=== PATIENT | female | born 1990 | race American Indian/Alaskan Native ===

== ENCOUNTER 2016-11-27 10:03 | Inpatient (IN) | payer OTHER ==
[2016-11-27 11:33] LABS: Urine Drugs of Abuse Note Disclamer
[2016-11-27 11:45] LABS: Bacteria,Urine 1+ /HPF (Negative); Bilirubin,Urine NEG (Negative); Blood,Urine SM (Negative); Ketones,Urine NEG (Negative); Leukocyte Esterase,Urine NEG (Negative); Mucus,Urine FEW /HPF; Nitrite,Urine NEG (Negative); Urobilinogen,Urine < 2.0 mg/dL (<2.0)
[2016-11-27 11:46] LABS: Protein,Urine >500 mg/dL (Negative)
[2016-11-27] MEDS ORDERED: XYLOCAINE 2% INFILTRATI ONE ×2 (14:23→22:08)
[2016-11-27] MEDS ORDERED: BRETHINE SUB-Q PRN (14:23)
[2016-11-27] MEDS ORDERED: ePHEDrine SULFATE IV PRN (14:23)
[2016-11-27] MEDS ORDERED: NARCAN 0.4 MG/1 ML IV PRN (14:23)
[2016-11-27] MEDS ORDERED: SUBLIMAZE IV PRN (14:23)
[2016-11-27] MEDS ORDERED: BRETHINE IVP PRN (14:23)
[2016-11-27] MEDS ORDERED: MINERAL OIL PO PRN (14:23)
--- NOTE | 2016-11-27 14:37 | Ultrasound Report ---
BIOPHYSICAL PROFILE: INDICATION: well being, increased blood pressure. COMPARISON: None similar. TECHNIQUE: Transabdominal ultrasound with Doppler interrogation. 2 - breathing movements 2 - movements 2 - posture and tone 2 - Qualitative amniotic fluid volume 8 - TOTAL SCORE OF POSSIBLE 8 Heart Rate (bpm) 132
--- NOTE | 2016-11-27 14:47 | Ultrasound Report ---
ULTRASOUND ABDOMEN LIMITED INDICATION: Increased blood pressure. Evaluate gallbladder. COMPARISON: None similar. FINDINGS: Right upper quadrant ultrasound suggests unremarkable liver. Gallbladder though suboptimally distended with exaggerated wall thickness of 4.7 mm. Few small non-shadowing echogenicities along the gallbladder lumen may be present, possibly debris or polyps. No pericholecystic fluid or positive sonographic Natarajan's sign. Common bile duct is 3 mm. Pancreas partly obscured due to bowel gas, though imaged body appears within normal limits. Nonaneurysmal abdominal aorta. Unremarkable IVC. Bilateral perinephric fluid noted, right more than left. Small amount of perihepatic ascites may also be present. Bilateral pleural effusions also seen. Kidneys appear mildly echogenic. No significant hydronephrosis, though dilated right renal pelvis may represent an extrarenal pelvis. Right kidney is 12.2 x 5 x 6 cm with cortical thickness of 1.4 cm. Left kidney approximately 12.1 cm in length. CONCLUSION: 1. Suboptimally distended gallbladder with exaggerated wall thickness and few non-shadowing gallbladder luminal echogenicities along the wall, as described. 2. Bilateral pleural effusions, minimal ascites and bilateral perinephric fluid also noted in this patient with presumed right extrarenal pelvis and possible underlying medical renal disease sonographically, as described. Please correlate. Thank you for the opportunity to participate in this patient's care.
--- NOTE | 2016-11-27 14:54 | Ultrasound Report ---
OB ULTRASOUND GREATER THAN 14 WEEKS INDICATION: well-being, increased blood pressure. COMPARISON: None similar. TECHNIQUE: Transabdominal grayscale ultrasound with Doppler interrogation. Gestation: Guevara Position: Cephalic Amniotic Fluid: WNL (7-24 cm) MAILE = 18 cm Placenta: Right lateral; couple of placental lakes incidentally noted. Placental Grade: I Heart Rate: 137 BPM Cervical length: 3.3 cm (Normal > 3 cm) NEUROANATOMY VISUALIZED: Choroid Plexus Lateral Ventricle ANATOMY VISUALIZED: Stomach Kidneys Bladder Diaphragm 4 Chamber Heart Heart 3 Vessel Cord SPINE VISUALIZED: Longitudinal Transverse The following are not demonstrated due to maternal body habitus or lie: Cisterna Magnum, Cerebellum, Abd. Cord Insert BPD: 9.2 cm = 37 w 2 d HC: 33 cm = 37 w 4 d AC: 31.9 cm = 35 w 6 d FL: 6.7 cm = 34 w 3 d HC/AC Ratio: 1.03 Cephalic Index: 83.2 Estimated Weight: 2766 grams or 6 lbs. 2 oz. Clinical age = 37 w 2 d EDC: 12/16/2016 US Gest. Age = 36 w 2 d EDC: 12/23/2016 CONCLUSION: Single, viable intrauterine gestation with ultrasound estimated age of 36 weeks and 2 days and EDC of 12/23/2016, currently in cephalic lie with details, as above. Thank you for the opportunity to participate in this patient's care.
[2016-11-27] MEDS ORDERED: PITOCin/NS 20 UNIT/1000ML DRIP 20 UNITS/1,000 ML BAG IV SCH (15:00)
--- NOTE | 2016-11-27 15:27 | Consultation ---
History of Present Illness Reason for consult: gestational hypertension (Pt is 26 yo 37.2 weeks with reported WAN 12/16/16 . Obtained PNC at CT with last appt at 34 weeks . Patient present to [facility] since she has not received PNC ~ 3 weeks . BP 150-160s/ 90-100 mm Hg Spot Protein was > 500 mg Patient admits to N/V/D for 3 weeks ( unknown reason) . In addition patient reports edema LLE Patient denies visual changes , epigsatric pain , VB, CTX, and ABD pain . Reports AFM) Past History - Obstetrical History : 3 Medications and Allergies Allergies Allergy/AdvReac Type Severity Reaction Status Date / Time No Known Allergies Allergy Unverified 11/27/16 10:34 Active Meds: Active Medications Butorphanol Tartrate (Stadol) 2 mg IV Q2H PRN PRN Reason: Pain , Severe (7-10) Fentanyl (Sublimaze) 100 mcg IV Q2H PRN PRN Reason: Labor Pain Hydralazine HCl (Apresoline) 5 mg IV Q30MIN PRN PRN Reason: Hypertension Lactated Ringer's (Lactated Ringers) 1,000 mls @ 125 mls/hr IV DIRECT RACHAEL Oxytocin/Sodium Chloride (Pitocin/Ns 20 Unit/1000ml Drip) 20 units in 1,000 mls @ 125 mls/hr IV DIRECT RACHAEL Mineral Oil (Mineral Oil) 30 ml PO QHS PRN PRN Reason: Constipation Naloxone HCl (Narcan 0.4 Mg/1 Ml) 0.1 mg IV Q2MIN PRN PRN Reason: Res Rate </= 8 or 02 SAT < 92% Review of Systems Constitutional: no fever Eyes: no photophobia, no other (scotoma) Ears, nose, mouth and throat: no headache Cardiovascular: edema, no chest pain, no rapid/irregular heart beat, no syncope , no lightheadedness, no shortness of breath, no high blood pressure (No prior history of CHTN ) Respiratory: no shortness of breath Breasts: deferred Gastrointestinal: no abdominal pain, no nausea, no vomiting, no diarrhea, no indigestion Rectal Exam: deferred Musculoskeletal: no shooting arm pain Integumentary: no rash Neurological: no numbness, no seizures, no headaches Endocrine: no polyuria Hematologic/Lymphatic: no easy bruising, no easy bleeding - Vital Signs Vital signs: Vital Signs Pulse BP 71 140/94 11/27/16 10:36 11/27/16 10:36 Temp Pulse Resp BP Pulse Ox 99.1 F 68 18 153/105 97 11/27/16 13:16 11/27/16 12:35 11/27/16 13:16 11/27/16 12:35 11/27/16 12:32 - Physical Exam Breasts: Positive: deferred Cardiovascular: Regular rate Lungs: Positive: Normal air movement Abdomen: Negative: tenderness, guarding, other (Negative epigastric pain ) Uterus: Positive: other (gravid). Negative: tender Extremities: Positive: edema (trace LLE) Deep Tendon Reflex Grade: Normal +2 - Obstetrical FHR: auscultation normal (+FHT reported per RN) Results Abnormal lab results 11/27/16 Range/Units 10:40 Ur Specific [place] 1.031 H (1.003-1.030) Urine WBC (Auto) 30.0 H (0.0-6.0) /HPF All other labs normal. Ultrasound: report reviewed ([facility] 11/27/16 37.2 weeks with WAN 12/16/16 AUA 36.2 weeks with WAN 12/23/16 EFW 2766 grams ( 6'2") vtx presentation MAILE 18 cm + FHT Placental with placental lakes BPP 09/22) Assessment and Plan A) 1. 37.2 weeks 2. Elevated BP 150-160/90-100's mm Hg concern for PreEclampsia 3. Denies CHTN 4 NO [employer] 5. Spot Protein > 500 6. NO PNC in [place] /NO PNR available 7. Reassuring growth [facility] assessment 8. Reassuring BPP of 09/22 P) 1. Admit to L+D with MgSO4 per protocal - recommendation to deliver 2. Management of BP 3. Document PIH labs 4. UDS screen 5. Strict I&O 6. Placenta to pathology 7. Cord gas
[2016-11-27] MEDS ORDERED: MAGNESIUM SULFATE 4GM/100ML 4 GM/100 ML BAG IV ONE (15:30)
--- NOTE | 2016-11-27 15:44 | History and Physical Report ---
History of Present Illness Date of examination: 11/27/16 Date of admission: 11/27/16 10:04 Chief complaint: nausea, vomiting and diarrhea and upper right quadrant pain. History of present illness: This is a 26 yo at 37 weeks with partial care. Was last seen 4 weeks ago in [facility]. She rports no hx of HTN nor any medical problems in this . She comes to triage c/o nausea and vomintg and diarrhea for the last 3 weeks. She reports good fm no vb no leaking. She also denies tomas, bv, nor scotomata. She states that she associate with her nausea and vomiting right upper quadrant pain and some back pain. Past History Past Medical History: no pertinent history Past Surgical History: no surgical history Family/Genetic History: none Social history: no significant social history, , lives with family ( recently moved to [place] to have help with her baby. livving with mother ), alcohol abuse, prescription drug abuse. denies: smoking - Obstetrical History Expected Date of Delivery: 12/16/16 Actual Gestation: 37 Week(s) 3 Day(s) : 3 Para: 0 Hx # Term Pregnancies: 0 Number of Pregnancies: 0 Spontaneous Abortions: 0 Induced : 2 Number of Living Children: 0 Medications and Allergies Allergies Allergy/AdvReac Type Severity Reaction Status Date / Time No Known Allergies Allergy Unverified 11/27/16 10:34 Home Medications Medication Instructions Recorded Confirmed Last Taken Type Vit-Fe Fumar-FA [ 1 tab PO QDAY 11/27/16 11/27/16 11/27/16 History Vitamin] Active Meds: Active Medications Butorphanol Tartrate (Stadol) 2 mg IV Q2H PRN PRN Reason: Pain , Severe (7-10) Fentanyl (Sublimaze) 100 mcg IV Q2H PRN PRN Reason: Labor Pain Hydralazine HCl (Apresoline) 5 mg IV Q30MIN PRN PRN Reason: Hypertension Lactated Ringer's (Lactated Ringers) 1,000 mls @ 125 mls/hr IV DIRECT RACHAEL Oxytocin/Sodium Chloride (Pitocin/Ns 20 Unit/1000ml Drip) 20 units in 1,000 mls @ 125 mls/hr IV DIRECT RACHAEL Magnesium Sulfate (Magnesium Sulfate 40gm/1000ml) 40 gm in 1,000 mls @ 50 mls/ hr IV DIRECT RACHAEL PRN Reason: 2 GM/HR Magnesium Sulfate (Magnesium Sulfate 4gm/100ml) 4 gm in 100 mls @ 25 mls/hr IV ONCE ONE Stop: 11/27/16 19:19 Mineral Oil (Mineral Oil) 30 ml PO QHS PRN PRN Reason: Constipation Naloxone HCl (Narcan 0.4 Mg/1 Ml) 0.1 mg IV Q2MIN PRN PRN Reason: Res Rate </= 8 or 02 SAT < 92% Review of Systems All systems: negative Gastrointestinal: abdominal pain, nausea, vomiting, diarrhea - Vital Signs Vital signs: Vital Signs Pulse BP 71 140/94 11/27/16 10:36 11/27/16 10:36 Temp Pulse Resp BP Pulse Ox 99.1 F 68 18 153/105 97 11/27/16 13:16 11/27/16 12:35 11/27/16 13:16 11/27/16 12:35 11/27/16 12:32 - Physical Exam Breasts: Positive: normal Cardiovascular: Regular rate, Normal S1 Lungs: Positive: Clear to auscultation, Normal air movement Abdomen: Positive: normal appearance, soft, normal bowel sounds. Negative: distention, tenderness, guarding Genitourinary (Female): Positive: normal external genitalia, normal perenium Vulva: both: normal Uterus: Positive: normal size Anus/Rectum: Positive: normal perianal skin Extremities: Positive: edema (trace) Deep Tendon Reflex Grade: Normal +2 - Obstetrical FHR: category 1 Uterine Contraction Monitor Mode: External Cervical Dilatation: 2 Cervical Effacement Percentage: 60 station: -2 Uterine Contraction Pattern: Irregular Uterine Tone Measurement Phase: Contraction Uterine Contraction Intensity: Mild Results Result Diagrams: 11/27/16 14:55 11/27/16 14:55 Abnormal lab results 11/27/16 Range/Units 10:40 Ur Specific [place] 1.031 H (1.003-1.030) Urine WBC (Auto) 30.0 H (0.0-6.0) /HPF All other labs normal. Ultrasound: report reviewed Assessment and Plan A/P IUP 37 weeks vertex Severe Preeclampsia elevated BP 170-140/70-105 Magnesium 4g and 2g IVF and labs , PIH labs consulted with TALIB Murphy ( discussed agrrement with admission and IOL) elevated transaminase, nl plt consult with medicine concerning bilateral pleural effusion, gallbladder thickening and ascites with perinephric
[2016-11-27 15:47] LABS: Hematocrit 40.1 % (30.3-42.9); Hemoglobin 13.2 gm/dl (10.1-14.3); Mean Corpuscular HGB Conc 33 % (30-34); Mean Corpuscular Hemoglobin 27 pg (28-32); Mean Corpuscular Volume 83 fl (79-97); Platelet Count 205 K/mm3 (140-440); Red Blood Count 4.86 M/mm3 (3.65-5.03); Red Cell Distribution Width 14.3 % (13.2-15.2); White Blood Count 5.8 K/mm3 (4.5-11.0)
[2016-11-27 15:55] LABS: Alanine Aminotransferase 57 units/L (7-56); Lactate Dehydrogenase 353 units/L (91-180); Uric Acid 6.4 mg/dL (3.5-7.6)
[2016-11-27] MEDS: APRESOLINE IV PRN ×2 (16:12→17:05)
[2016-11-27] MEDS: MAGNESIUM SULFATE 40GM/1000ML 40 GM/1,000 ML BAG IV SCH (17:17)
[2016-11-27] MEDS ORDERED: PITOCin/NS 30 UNIT/500ML 30 UNITS/500 ML BAG IV SCH (20:00)
[2016-11-27] MEDS ORDERED: ZOFRAN IV ONE (20:06)
[2016-11-27] MEDS: LACTATED RINGERS 1,000 ML IV SCH (22:00)
[2016-11-28] MEDS: ZOFRAN IV PRN (00:38)
[2016-11-28] MEDS ORDERED: POLYCILLIN/NS 2 GM/100 ML 2 GM/100 ML BAG IV ONE (02:35)
[2016-11-28] MEDS: REGLAN IV PRN ×2 (02:44→07:53)
[2016-11-28] MEDS: TYLENOL PO PRN (02:48)
[2016-11-28] MEDS: STADOL IV PRN ×2 (03:53→06:00)
[2016-11-28] MEDS ORDERED: POLYCILLIN/NS 1 GM/50 ML 1 GM/50 ML BAG IV SCH (06:00)
[2016-11-28] MEDS: LACTATED RINGERS 1,000 ML IV SCH ×2 (06:18→16:13)
[2016-11-28] MEDS ORDERED: ePHEDrine SULFATE ONE (06:40)
[2016-11-28] MEDS ORDERED: NARCAN 2 MG/2 ML IV PRN (07:10)
[2016-11-28] MEDS ORDERED: ePHEDrine SULFATE IV PRN (07:10)
--- NOTE | 2016-11-28 07:11 | Anesthesia Consultation ---
Anesthesia Consult and Med Hx Date of service: 11/28/16 - Airway Anesthetic Teeth Evaluation: Good ROM Head & Neck: Adequate Mental/Hyoid Distance: Adequate Mallampati Class: Class II Intubation Access Assessment: Probably Good - Pulmonary Exam CTA: Yes - Cardiac Exam Cardiac Exam: RRR - Pre-Operative Health Status ASA Pre-Surgery Classification: ASA3 Proposed Anesthetic Plan: Epidural, Spinal - Pulmonary Hx Asthma: No COPD: No Hx Pneumonia: No - Cardiovascular System Hx Hypertension: Yes (PRE-ECLAMPSIA) - Central Nervous System Hx Seizures: No Hx Psychiatric Problems: No - Endocrine Hx Renal Disease: No Hx End Stage Renal Disease: No Hx Hypothyroidism: No Hx Hyperthyroidism: No - Hematic Hx Anemia: No Hx Sickle Cell Disease: Yes (+SC trait) - Other Systems Hx Alcohol Use: No - Additional Comments Anesthesia Medical History Comments: IUP
[2016-11-28] MEDS ORDERED: NACL 0.9% 1000 ML 1,000 ML ONE (07:21)
--- NOTE | 2016-11-28 07:40 | Anesthesia Day of Surgery ---
Anesthesia Day of Surgery - Day of Surgery Patient Examined: Yes Patient H&P Reviewed: Yes Patient is NPO: Yes
[2016-11-28] MEDS ORDERED: PEPCID IV ONE (07:45)
[2016-11-28] MEDS ORDERED: BICITRA ONE (07:45)
[2016-11-28] MEDS ORDERED: ANCEF/STERILE WATER 2 GM/20 ML 2 GM/20 ML SYRINGE IV ONE (07:46)
--- NOTE | 2016-11-28 07:57 | Event Note ---
Date: 11/28/16 I was called by nurse stating variable decels. I placed a IUPC with amnionic fluid infusion but despite resucitation of ivf, pitocin off, oxygen still has deep variable decles and min variability. It was decided that we proceed with primary c/sec secondary NRFHT. She was consented verbally and signed consents. Patient agrees with plan including mother at bedside
[2016-11-28] MEDS ORDERED: fentaNYL-BUPIV 2 MCG/ML-0.125% 200 MCG/100 ML BAG EPIDURAL SCH (08:00)
[2016-11-28] MEDS ORDERED: NACL 0.9% IR ONE (09:05)
[2016-11-28] MEDS ORDERED: WATER FOR IRRIG STERILE IR ONE (09:10)
[2016-11-28] MEDS ORDERED: ANUCORT-HC PR PRN (10:14)
[2016-11-28] MEDS ORDERED: LANSINOH TP PRN (10:14)
[2016-11-28] MEDS ORDERED: SENOKOT PO PRN (10:14)
[2016-11-28] MEDS ORDERED: NARCAN 0.4 MG/1 ML IV PRN ×2 (10:14)
[2016-11-28] MEDS ORDERED: PERCOCET 5/325 PO PRN (10:14)
[2016-11-28] MEDS ORDERED: PHENERGAN PR PRN (10:14)
[2016-11-28] MEDS ORDERED: MOTRIN PO PRN (10:14)
[2016-11-28] MEDS ORDERED: TUCKS PAD TP PRN (10:14)
--- NOTE | 2016-11-28 10:22 | Procedure Note ---
OB Delivery Note - Delivery Date of Delivery: 11/28/16 Surgeon: NORA LEBLANC Estimated blood loss: other (700 cc) - Section Preop diagnosis: nonreassuring FHR tracing Postop diagnosis: same section procedure: section, primary low transverse Disposition: PACU Complications: none Narrative: see op note - A at 1 minute: 6 at 5 minutes: 9 Infant Gender: Female
[2016-11-28] MEDS ORDERED: MORPHINE ONE (10:31)
[2016-11-28] MEDS ORDERED: DILAUDID ONE ×2 (10:31→14:37)
[2016-11-28] MEDS ORDERED: NACL 0.9% 1000 ML ONE (10:31)
[2016-11-28] MEDS ORDERED: XYLOCAINE MPF 2% ONE (10:31)
[2016-11-28] MEDS ORDERED: VERSED ONE (10:31)
--- NOTE | 2016-11-28 10:32 | Operative Report ---
Operative Report Operative Report: DATE OF OPERATION: 11/28/2016 PREOPERATIVE DIAGNOSES: 1. Intrauterine gestation at 37 weeks 2. Severe Preeclampsia 3. NRFHT POSTOPERATIVE DIAGNOSES: 1-3. CLAUDIA OPERATION PERFORMED: Primary low transverse section. SURGEON:Suzette Iglesias MD ANESTHESIA: Epidural COMPLICATIONS: None. ESTIMATED BLOOD LOSS: 700 mL. DRAINS: Young catheter to the bladder. SPECIMENS TO PATHOLOGY: Cord blood for routine testing. OPERATIVE FINDINGS: A viable female with Apgars of 6 and 9 and birthweight of 5 pounds 2 ounces was delivered from a cephalic presentation, persistent occiput anterior position. There was marked caput and molding present on the head. The cord contained 3 vessels. There was normal anterior fundal placenta. The amniotic fluid was clear. The uterus, fallopian tubes and ovaries were normal. DESCRIPTION OF OPERATION: The patient was brought to the operating suite in stable condition with epidural anesthesia on board and an indwelling catheter in place in the bladder. The patient was placed supine on the operating room table and rolled to her left side with a wedge. The abdomen was prepped and draped in standard fashion for section. After testing with forceps to assure an adequate anesthetic level, the surgery was commenced. We had counseled the patient extensively regarding the risks of the surgery including but not limited to stroke, embolus, phlebitis, pain, infection, hemorrhage, as well as injury to the and the internal organs such as the bowel, bladder, blood vessels, nerves, kidneys, ureters and pelvic organs. The patient was aware of the postoperative morbidity issues and recovery timeframes. The patient was aware she can form adhesions, which can result in obstruction of loop of bowel or ureter or chronic pain. She was aware that should she have hemorrhage and require blood transfusion, there was a small chance for exposure to hepatitis or HIV disease. With the scalpel, a Pfannenstiel skin incision was made. Dissection was carried down sharply through the subcutaneous tissues and fascia in a transverse plane with the scalpel, electrocautery and curved Mitchell scissors. The fascia was sharply freed up superiorly and inferiorly from the underlying rectus muscles, which were bluntly and sharply divided. The peritoneum was entered carefully in a clear space with a curved hemostat. The peritoneal incision was then extended vertically with Metzenbaum scissors. A retractor and bladder blade were placed. A bladder flap was created by incising transversely through the peritoneum and vesicouterine fold and then bluntly dissecting the bladder distally. With the scalpel, a low transverse hysterotomy was commenced. The serosa and myometrium were scored with the scalpel. The uterine cavity was actually entered bluntly with a curved hemostat. The uterine incision was then extended laterally with the wind up operator's fingers. An intrauterine hand was placed and the head of the was brought up out of the pelvis into the uterine incision.It was difficult to deliver baby cephaic. It was then abandoned and the incision was T' d and delivered argenis breech . . The nasopharynx and oropharynx were suctioned. The cord was doubly clamped and transected. The infant was then handed off to the nursery personnel. Apgars were 6 and and 9. A cord pH was obtained. . Further cord blood was collected for routine testing. Intravenous Pitocin and antibiotics were administered. The placenta was manually removed. The uterine cavity was then curetted with a dry sponge and freed of the remaining membranes. The edges of the uterine incision were grasped with Sandra clamps. With the massage and the Pitocin, the uterus began to firm up normally. The uterine incision was then closed in 2 layers of 0 Vicryl sutures. The first suture was placed to the endometrium and myometrium. The second suture was placed through the endopelvic fascia and also reincorporated the bladder flap peritoneum. Peritoneal lavage was then performed. The pelvis and gutters were irrigated and suctioned and cleared of all blood and clots and amniotic fluid. The uterine incision was reinspected to assure hemostasis. The uterus, tubes and ovaries were inspected and were normal. Once we were satisfied with the hemostasis which included Tissel and surgicell, attention was turned to closure of the abdominal incision. The peritoneum, muscles and fascia were closed in layers using 0-Vicryl sutures. The subcutaneous tissue was closed with 3-0 plain sutures. The skin was closed with a subcuticular suture of 4-0 Vicryl followed by benzoin, Steri-Strips and a Telfa dressing. The patient was moved to the recovery room in stable condition with the Young catheter draining clear urine. Instruments, sponge and needle counts were reported as correct. Estimated blood loss was 700 mL. There were no complications.
[2016-11-28] MEDS ORDERED: SODIUM CHLORIDE FLUSH SYRINGE 10 ML IV NR (11:00)
[2016-11-28] MEDS ORDERED: TORADOL IV ONE (11:00)
[2016-11-28] MEDS ORDERED: PITOCin/NS 20 UNIT/1000ML DRIP 20 UNITS/1,000 ML BAG IV SCH (11:00)
--- NOTE | 2016-11-28 11:30 | Post Anesthesia Evaluation ---
- Post Anesthesia Evaluation Patient Participated: Yes Airway Patent: Yes Stable Respiratory Function: Yes Nausea/Vomiting: No Temp > 96.8F: Yes Pain Manageable: Yes Adequeate Hydration: Yes Anesthesia Complications: No Block Receding Appropriately: Yes Patient on Ventilator: No
[2016-11-28 19:06] LABS: Hematocrit 22.7 % (30.3-42.9); Hemoglobin 7.2 gm/dl (10.1-14.3)
[2016-11-28 19:19] LABS: INR 1.15 (0.87-1.13); Partial Thromboplastin Time 27.2 Sec. (24.2-36.6)
[2016-11-28 19:35] LABS: Alanine Aminotransferase 35 units/L (7-56); Albumin 1.7 g/dL (3.9-5); Alkaline Phosphatase 386 units/L (35-129); Anion Gap 18 mmol/L; BUN/Creatinine Ratio 12; Blood Urea Nitrogen 13 mg/dL (7-17); Calcium 6.4 mg/dL (8.4-10.2); Carbon Dioxide 19 mmol/L (22-30); Chloride 106.8 mmol/L (98-107); Glucose 124 mg/dL (65-100); Potassium 4.5 mmol/L (3.6-5.0); Sodium 139 mmol/L (137-145); Total Protein 3.4 g/dL (6.3-8.2)
[2016-11-28 19:40] LABS: White Blood Count 21.7 K/mm3 (4.5-11.0)
[2016-11-28 19:41] LABS: Hematocrit 22.7 % (30.3-42.9); Hemoglobin 7.2 gm/dl (10.1-14.3); Mean Corpuscular HGB Conc 32 % (30-34); Mean Corpuscular Hemoglobin 27 pg (28-32); Mean Corpuscular Volume 84 fl (79-97); Platelet Count 194 K/mm3 (140-440); Red Blood Count 2.69 M/mm3 (3.65-5.03); Red Cell Distribution Width 14.3 % (13.2-15.2)
[2016-11-28] MEDS ORDERED: NACL 0.9% 500 ML 500 ML IV ONE ×2 (19:53→23:34)
--- NOTE | 2016-11-28 20:53 | Cat Scan Report ---
FINAL REPORT EXAM: CT ABDOMEN PELVIS WO/W CON HISTORY: question bleed,, s/p TECHNIQUE: Dynamic helical CT scan through the abdomen and pelvis before, during and after intravenous injection of iodinated contrast. Images are reconstructed in the sagittal and coronal planes. Oral contrast was not given. PRIORS: None. FINDINGS: Images through the lower thorax show medium-sized bilateral pleural effusions and bibasilar compressive atelectasis. Uterus is enlarged consistent with recent state. There is heterogeneous hyperdense material in the lower uterine segment and endocervical canal, expanding the in the cervical canal and measuring 18.0 x 10.7 x 8.2 Cm. It most likely represents a large hematoma. There is fluid in the endometrial canal in the uterine fundus. There are also air bubbles consistent with recent . Subcutaneous soft tissue air consistent with is noted. There is small to moderate abdominal ascites. There is fatty infiltration of the liver, especially centrally and in the posterior right lobe. The gallbladder, pancreas, spleen and adrenal glands appear normal. The kidneys appear normal. There is mild to moderate right and mild left pelviectasis likely due to mass effect on the ureters by the enlarged uterus. The stomach is markedly distended with air and fluid. There are no abnormally dilated loops of bowel or acute inflammatory changes. A normal-appearing appendix is identified. The abdominal aorta has a normal diameter. The IVC has a flattened appearance may be indicative of hypovolemia. There is a small amount of spinal epidural air likely introduced during epidural administration of anesthesia. The bones are unremarkable. IMPRESSION: 1. Large intrauterine hematoma mostly in the lower uterine segment and endocervical canal. 2. Flattening of the IVC may be indicative of hypovolemia. 3. Medium-sized bilateral pleural effusions and bibasilar compressive atelectasis 4. Small to moderate abdominal ascites 5. Fatty infiltration of the liver 6. Bilateral pelviectasis likely due to mass effect on the ureters by the enlarged uterus 7. Marked distention of the stomach with air and fluid. Consider NG tube placement. 8. Small amount of spinal epidural air likely introduced during epidural administration of anesthesia.
--- NOTE | 2016-11-28 21:29 | History and Physical Report ---
History of Present Illness Date of examination: 11/28/16 Date of admission: 11/27/16 10:04 Chief complaint: CC:Feeling Weak since am History of present illness: TU[place]UM[place]:26 y/o AAF being seen for extreme weakness.Slight SOB. Had C Section this AM .No chest pain. Past History Past Medical History: No medical history Past Surgical History: Social history: no significant social history, , lives with family ( recently moved to [place] to have help with her baby. livving with mother ), alcohol abuse, prescription drug abuse. denies: smoking Medications and Allergies Allergies Allergy/AdvReac Type Severity Reaction Status Date / Time No Known Allergies Allergy Unverified 11/27/16 10:34 Home Medications Medication Instructions Recorded Confirmed Last Taken Type Vit-Fe Fumar-FA [ 1 tab PO QDAY 11/27/16 11/27/16 11/27/16 History Vitamin] Active Meds: Active Medications Acetaminophen (Tylenol) 650 mg PO Q6H PRN PRN Reason: Pain, Mild (1-3) Last Admin: 11/28/16 02:48 Dose: 650 mg Acetaminophen/Hydrocodone Bitart ([place] 5/325) 2 each PO Q6H PRN PRN Reason: Pain, Moderate (4-6) Butorphanol Tartrate (Stadol) 2 mg IV Q2H PRN PRN Reason: Pain , Severe (7-10) Last Admin: 11/28/16 06:00 Dose: 2 mg Diphtheria/Tetanus/Acell Pertussis (Boostrix) 0.5 ml IM .ONCE ONE Stop: 11/29/16 06:01 Fentanyl (Sublimaze) 100 mcg IV Q2H PRN PRN Reason: Labor Pain Ferrous Sulfate (Feosol) 325 mg PO QDAY RACHAEL Hydralazine HCl (Apresoline) 5 mg IV Q30MIN PRN PRN Reason: Hypertension Last Admin: 11/27/16 17:05 Dose: 5 mg Hydrocortisone Acetate (Anucort-Hc) 25 mg [place] BID PRN PRN Reason: Hemorrhoids Lactated Ringer's (Lactated Ringers) 1,000 mls @ 125 mls/hr IV DIRECT RACHAEL Last Admin: 11/28/16 16:13 Dose: 125 mls/hr Magnesium Sulfate (Magnesium Sulfate 40gm/1000ml) 40 gm in 1,000 mls @ 25 mls/ hr IV DIRECT RACHAEL PRN Reason: 1 GM/HR Last Infusion: 11/28/16 02:45 Dose: 1 gm/hr, 25 mls/hr Oxytocin/Sodium Chloride (Pitocin/Ns 30 Unit/500ml) 30 units in 500 mls @ 1 mls /hr IV TITR RACHAEL PRN Reason: Protocol Last Titration: 11/28/16 05:31 Dose: 14 mls/hr, 14 mls/hr Ampicillin Sodium (Polycillin/Ns 1 Gm/50 Ml) 1 gm in 50 mls @ 100 mls/hr IV Q4HR RACHAEL PRN Reason: Protocol Last Admin: 11/28/16 06:18 Dose: 100 mls/hr Oxytocin/Sodium Chloride (Pitocin/Ns 20 Unit/1000ml Drip) 20 units in 1,000 mls @ 250 mls/hr IV DIRECT RACHAEL Ibuprofen (Motrin) 800 mg PO Q6H PRN PRN Reason: Pain, Mild (1-3) Magnesium Hydroxide (Milk Of Magnesia) 30 ml PO QHS PRN PRN Reason: Constip Unrelieved By Senna Measles/Mumps/Rubella Vaccine Live (M-M-R Ii Vaccine) 0.5 ml SUB-Q .ONCE ONE Stop: 11/29/16 06:01 Metoclopramide HCl (Reglan) 10 mg IV Q6H PRN PRN Reason: Nausea And Vomiting Last Admin: 11/28/16 07:53 Dose: 10 mg Mineral Oil (Mineral Oil) 30 ml PO QHS PRN PRN Reason: Constipation Morphine Sulfate (Morphine) 2 mg IV Q4H PRN PRN Reason: Pain, Moderate (4-6) Morphine Sulfate (Morphine) 4 mg IV Q4H PRN PRN Reason: Pain , Severe (7-10) Multi-Ingredient Ointment (Lansinoh) 1 applic TP PRN PRN PRN Reason: dryness/cracking Multivitamins/Iron/Calcium ( Vitamin) 1 each PO QDAY RACHAEL Naloxone HCl (Narcan 0.4 Mg/1 Ml) 0.1 mg IV Q2MIN PRN PRN Reason: Res Rate </= 8 or 02 SAT < 92% Ondansetron HCl (Zofran) 4 mg IV Q8H PRN PRN Reason: Nausea And Vomiting Last Admin: 11/28/16 00:38 Dose: 4 mg Oxycodone/Acetaminophen (Percocet 5/325) 1 tab PO Q6H PRN PRN Reason: Pain, Moderate (4-6) Promethazine HCl (Phenergan) 25 mg [place] Q6H PRN PRN Reason: N/V IF NPO AND NO IV ACCESS Senna (Senokot) 17.2 mg PO QHS PRN PRN Reason: Constipation Simethicone (Mylicon) 80 mg PO Q6H PRN PRN Reason: Gas pain Sodium Chloride (Sodium Chloride Flush Syringe 10 Ml) 10 ml IV PRN NR Stop: 11/30/16 10:59 Witch [place]/Glycerin (Tucks Pad) 1 each TP PRN PRN PRN Reason: Hemorrhoids/cleansing/soothing Review of Systems All systems: negative Constitutional: no weight loss, no weight gain, no fever, no chills, no sweats, no night sweats Ears, nose, mouth and throat: no sore throat, no swelling in mouth, no swelling in throat Breasts: deferred Cardiovascular: shortness of breath, no chest pain, no orthopnea, no palpitations, no rapid/irregular heart beat, no edema, no syncope, no lightheadedness Respiratory: no cough, no cough with sputum, no excessive sputum, no hemoptysis , no shortness of breath, no dyspnea on exertion Gastrointestinal: abdominal pain, nausea, no vomiting, no diarrhea, no constipation, no change in bowel habits, no hematemesis, no coffee ground emesis Genitourinary Female: no dysuria, no urinary frequency, no urgency, no stress incontinence Rectal: no pain Musculoskeletal: no neck stiffness, no neck pain, no shooting arm pain, no arm numbness/tingling, no low back pain, no shooting leg pain, no leg numbness/ tingling, no redness of joints Integumentary: no rash, no pruritis, no redness, no sores, no wounds, no jaundice, no boils, no blisters Neurological: no seizures, no syncope Psychiatric: no anxiety, no memory loss, no change in sleep habits, no sleep disturbances, no insomnia, no hypersomnia, no change in appetite, no change in libido, no suicidal ideation, no disorientation, no hallucinations Endocrine: no cold intolerance, no heat intolerance, no polyphagia, no excessive thirst, no polydipsia, no polyuria, no nocturia, no excessive sweating , no flushing, no weight change Hematologic/Lymphatic: no easy bruising, no easy bleeding Allergic/Immunologic: no urticaria, no allergic rhinitis, no wheezing Exam - Constitutional Vitals: Temp Pulse Resp BP Pulse Ox 97.5 F L 99 H 20 81/41 97 11/28/16 19:57 11/28/16 18:45 11/28/16 18:45 11/28/16 18:50 11/28/16 18:50 General appearance: Present: no acute distress, mild distress, well-nourished - EENT Eyes: Present: PERRL ENT: hearing intact, clear oral mucosa - Neck Neck: Present: supple, normal ROM - Respiratory Respiratory effort: normal Respiratory: bilateral: CTA - Cardiovascular Heart Sounds: Present: S1 & S2. Absent: rub, click - Extremities Extremities: pulses symmetrical, No edema Peripheral Pulses: within normal limits - Abdominal General gastrointestinal: Present: soft, tender, non-distended, normal bowel sounds Female genitourinary: Present: normal - Rectal Rectal Exam: deferred - Integumentary Integumentary: Present: clear, warm, dry - Musculoskeletal Musculoskeletal: gait normal, strength equal bilaterally - Psychiatric Psychiatric: appropriate mood/affect, intact judgment & insight - Neurologic Neurologic: CNII-XII intact, moves all extremities - Allied Health Allied health notes reviewed: nursing, case management Results - Labs CBC & Chem 7: 11/29/16 18:41 11/28/16 18:40 Labs: Laboratory Last Values WBC 21.7 K/mm3 (4.5-11.0) H 11/28/16 18:40 RBC 2.69 M/mm3 (3.65-5.03) L 11/28/16 18:40 Hgb 7.2 gm/dl (10.1-14.3) L 11/28/16 18:40 Hct 22.7 % (30.3-42.9) L 11/28/16 18:40 MCV 84 fl (79-97) 11/28/16 18:40 MCH 27 pg (28-32) L 11/28/16 18:40 MCHC 32 % (30-34) 11/28/16 18:40 RDW 14.3 % (13.2-15.2) 11/28/16 18:40 Plt Count 194 K/mm3 (140-440) 11/28/16 18:40 PT 15.3 Sec. (12.2-14.9) H 11/28/16 18:40 INR 1.15 (0.87-1.13) H 11/28/16 18:40 APTT 27.2 Sec. (24.2-36.6) 11/28/16 18:40 VBG pH 7.297 (7.320-7.420) L 11/28/16 08:30 Sodium 139 mmol/L (137-145) 11/28/16 18:40 Potassium 4.5 mmol/L (3.6-5.0) 11/28/16 18:40 Chloride 106.8 mmol/L (98-107) 11/28/16 18:40 Carbon Dioxide 19 mmol/L (22-30) L 11/28/16 18:40 Anion Gap 18 mmol/L 11/28/16 18:40 BUN 13 mg/dL (7-17) 11/28/16 18:40 Creatinine 1.1 mg/dL (0.7-1.2) D 11/28/16 18:40 Estimated GFR > 60 ml/min 11/28/16 18:40 BUN/Creatinine Ratio 12 % 11/28/16 18:40 Glucose 124 mg/dL (65-100) H 11/28/16 18:40 Uric Acid 6.4 mg/dL (3.5-7.6) 11/27/16 14:55 Calcium 6.4 mg/dL (8.4-10.2) L 11/28/16 18:40 Magnesium 6.40 mg/dL (1.7-2.3) H 11/28/16 18:40 Total Bilirubin 0.30 mg/dL (0.1-1.2) 11/28/16 18:40 AST 38 units/L (5-40) 11/28/16 18:40 ALT 35 units/L (7-56) 11/28/16 18:40 Alkaline Phosphatase 386 units/L (35-129) H 11/28/16 18:40 Lactate Dehydrogenase 353 units/L (91-180) H 11/27/16 14:55 Total Protein 3.4 g/dL (6.3-8.2) L 11/28/16 18:40 Albumin 1.7 g/dL (3.9-5) L 11/28/16 18:40 Albumin/Globulin Ratio 1.0 % 11/28/16 18:40 Urine Color Aliza (Yellow) 11/27/16 10:40 Urine Turbidity Clear (Clear) 11/27/16 10:40 Urine pH 5.0 (5.0-7.0) 11/27/16 10:40 Ur Specific [place] 1.031 (1.003-1.030) H 11/27/16 10:40 Urine Protein >500 mg/dL (Negative) 11/27/16 10:40 Urine Glucose (UA) Neg mg/dL (Negative) 11/27/16 10:40 Urine Ketones Neg mg/dL (Negative) 11/27/16 10:40 Urine Blood Sm (Negative) 11/27/16 10:40 Urine Nitrite Neg (Negative) 11/27/16 10:40 Urine Bilirubin Neg (Negative) 11/27/16 10:40 Urine Urobilinogen < 2.0 mg/dL (<2.0) 11/27/16 10:40 Ur Leukocyte Esterase Neg (Negative) 11/27/16 10:40 Urine WBC (Auto) 30.0 /HPF (0.0-6.0) H 11/27/16 10:40 Urine RBC (Auto) 7.0 /HPF (0.0-6.0) 11/27/16 10:40 U Epithel Cells (Auto) 2.0 /HPF (0-13.0) 11/27/16 10:40 Urine Bacteria (Auto) 1+ /HPF (Negative) 11/27/16 10:40 Urine Mucus Few /HPF 11/27/16 10:40 Urine Opiates Screen Presumptive negative 11/27/16 10:40 Urine Methadone Screen Presumptive negative 11/27/16 10:40 Ur Barbiturates Screen Presumptive negative 11/27/16 10:40 Ur Phencyclidine Scrn Presumptive negative 11/27/16 10:40 Ur Amphetamines Screen Presumptive negative 11/27/16 10:40 U Benzodiazepines Scrn Presumptive negative 11/27/16 10:40 Urine Cocaine Screen Presumptive negative 11/27/16 10:40 U Marijuana (THC) Screen Presumptive negative 11/27/16 10:40 Drugs of Abuse Note Disclamer 11/27/16 10:40 RPR Nonreactive (Nonreactive) 11/27/16 14:55 Blood Type AB POSITIVE 11/27/16 15:00 Antibody Screen TNR 11/27/16 15:00 PRAVIN Antibody Screen Negative 11/27/16 15:00 Crossmatch See Detail 11/27/16 15:00 - Imaging and Cardiology Chest x-ray: report reviewed CT scan - abdomen: report reviewed (Uterine Hematoma 18 cm x 10.7x8.2 cm flattening ofIVC indicative of HypovolemiaMedium sized bilateral pleural effusions.Fairly large appearing pericardial effusions.) Assessment and Plan Advance Directives: Yes VTE prophylaxis?: Mechanical Plan of care discussed with patient/family: Yes - Patient Problems (1) Hypovolemia due to hemorrhage Current Visit: Yes Status: Acute Plan to address problem: IV Fluids and PRBC transfusion as necessary. (2) Hypotension Current Visit: Yes Status: Acute Qualifiers: Hypotension type: maternal hypotension of Trimester: T Plan to address problem: Hypotension sec to Blood Loss.IV fluids and PRBC for now (3) Hematoma of uterus Current Visit: Yes Status: Acute Qualifiers: Encounter type: initial encounter Qualified Code(s): S37.62XA - Contusion of uterus, initial encounter Plan to address problem: UFE if necessary. Transfuse Defer to Director Of Rooms reg evacuation (4) Leukocytosis Current Visit: Yes Status: Acute Qualifiers: Leukocytosis type: L Plan to address problem: Reactive Stress induced Empiric abx On Cefazolin IV q 8 h (5) DVT prophylaxis Current Visit: Yes Status: Acute Plan to address problem: scd's
[2016-11-28 22:29] LABS: Hematocrit 22.9 % (30.3-42.9); Hemoglobin 7.3 gm/dl (10.1-14.3)
[2016-11-28] MEDS: D5NS 1,000 ML IV SCH (23:52)
[2016-11-28] MEDS: ceFAZolin 2 GM in NACL 0.9% 100 ML IV SCH (23:53)
[2016-11-28] MEDS: MAGNESIUM SULFATE 40GM/1000ML 40 GM/1,000 ML BAG IV SCH (23:54)
--- NOTE | 2016-11-28 23:55 | Event Note ---
Date: 11/28/16 Late entry I was notified by the nurse at 6p that the patient was pale and hypotensive in 90/60s. I evaluated patient and ordered stat ct scan and CBC , cmp and blood gas. The patient was noted to have a [id number] hematoma in lower uterine segment and endocervial canal. Her hemoglobin preop 11/26 13 and post op 1600 7.2. Due to the patients status i discused with Angus Miller transfer to ICU and it was decided to transfer to ICU. I spoke with anesthesia and Dr. Carbajal from IR for possible UFE and exam under anesthesia with possible D and c. After evaluating status of patient and another cbc which was stable at 7.3 I decided to watch expectantly cbc every 4 hrs. If stable will watch expectantly and at any time if hemodynamically unstable will arrange for UFE and removal of hematoma. I will continue mag for 24 hrs Postop for severe preeclampsia continue ICU stay ancef as wbc elevated 21 close monitor of VSS
[2016-11-29 01:26] LABS: Hematocrit 23.7 % (30.3-42.9); Hemoglobin 7.2 gm/dl (10.1-14.3); Mean Corpuscular HGB Conc 31 % (30-34); Mean Corpuscular Hemoglobin 27 pg (28-32); Mean Corpuscular Volume 88 fl (79-97); Platelet Count 184 K/mm3 (140-440); Red Blood Count 2.71 M/mm3 (3.65-5.03); Red Cell Distribution Width 14.5 % (13.2-15.2)
[2016-11-29 02:18] LABS: Blastocytes % (Manual) 0 %; Eosinophils % (Manual) 0 % (0.0-4.3)
[2016-11-29 02:19] LABS: Burr Cells 1+; Diff Status Complete; Large Platelets Rare; Platelet Estimate Consistent w Auto; Polychromasia Few
[2016-11-29] MEDS ORDERED: BOOSTRIX IM ONE (06:00)
[2016-11-29] MEDS ORDERED: M-M-R II VACCINE SUB-Q ONE (06:00)
[2016-11-29] MEDS: ceFAZolin 2 GM in NACL 0.9% 100 ML IV SCH ×2 (08:08→16:42)
[2016-11-29] MEDS: D5NS 1,000 ML IV SCH ×2 (08:09→21:15)
[2016-11-29] MEDS: NORCO 5/325 PO PRN ×2 (09:38→21:15)
[2016-11-29] MEDS: PRENATAL VITAMIN PO SCH (09:39)
[2016-11-29] MEDS: FEOSOL PO SCH (09:39)
[2016-11-29] MEDS: CITRATE OF MAGNESIA PO PRN (13:40)
[2016-11-29] MEDS: MORPHINE IV PRN (13:40)
[2016-11-29 14:08] LABS: Hematocrit 28.1 % (30.3-42.9); Hemoglobin 9.4 gm/dl (10.1-14.3); Mean Corpuscular HGB Conc 33 % (30-34); Mean Corpuscular Hemoglobin 28 pg (28-32); Mean Corpuscular Volume 83 fl (79-97); Platelet Count 140 K/mm3 (140-440); Red Blood Count 3.37 M/mm3 (3.65-5.03); Red Cell Distribution Width 14.6 % (13.2-15.2)
[2016-11-29 14:09] LABS: White Blood Count 24.7 K/mm3 (4.5-11.0)
--- NOTE | 2016-11-29 15:07 | Progress Note ---
Assessment and Plan A/P POD#1 s/p Primary c/sec severe pree- been on Mag for 24 hrs d/c now hypotension- resolving s/p 2 U PRBC and FFP abd slightly distended- encourage ambulation, mag citrate hematoma- [id number] in lower uterine segment stable . D/w IR Dr. Carbajal and if stable will continue to closely observed if patient becomes unstable will consider UFE with exam under anesthesia and possible d and c. Plan B contains cytotec in few days with possible passing of hematoma. Plan c expectant mgt with reabsorption close monitoring advance diet as tolerate continue ancef ( increase in wbc) but afebrile ( multiple manipulation iwth delivery hand in vagina ) Subjective - Subjective Date of service: 11/29/16 Principal diagnosis: s/p c/sec, severe pree , hypotesnidon , hypovolemic Interval history: This is a 26 yo at 37 weeks with partial care. Was last seen 4 weeks ago in [facility]. She rports no hx of HTN nor any medical problems in this . She comes to triage c/o nausea and vomintg and diarrhea for the last 3 weeks. She reports good fm no vb no leaking. She also denies tomas, bv, nor scotomata. She states that she associate with her nausea and vomiting right upper quadrant pain and some back pain. Patient reports: appetite normal, voiding normally, pain well controlled, ambulating normally : doing well Objective - Vital Signs Latest vital signs: Vital Signs Temp Pulse Resp BP BP Pulse Ox 11/29/16 12:00 98.0 F 90 26 H 137/83 96 11/29/16 11:50 89 25 H 138/91 97 11/29/16 11:40 86 24 134/84 96 11/29/16 11:30 83 20 134/84 98 11/29/16 11:20 85 26 H 142/90 98 11/29/16 11:10 83 26 H 143/92 97 11/29/16 11:00 84 23 143/92 95 11/29/16 10:50 82 19 129/89 98 11/29/16 10:40 87 26 H 138/90 99 11/29/16 10:30 86 21 138/90 97 11/29/16 10:20 83 23 135/88 99 11/29/16 10:10 86 22 134/85 99 11/29/16 10:00 98.1 F 80 23 134/85 99 11/29/16 09:50 83 21 129/79 97 11/29/16 09:40 83 23 124/76 96 11/29/16 09:30 97.9 F 83 24 124/76 97 11/29/16 09:20 81 21 137/81 97 11/29/16 09:10 79 20 130/81 97 11/29/16 09:00 98.2 F 83 21 130/81 96 11/29/16 08:50 84 22 136/83 97 11/29/16 08:40 84 21 130/80 95 11/29/16 08:31 98.1 F 81 26 H 138/79 96 11/29/16 08:30 82 20 138/79 95 11/29/16 08:20 86 14 143/90 96 11/29/16 08:10 98 H 27 H 130/80 95 11/29/16 08:02 98.1 F 85 26 H 130/80 95 11/29/16 08:01 98.1 F 81 24 138/79 96 11/29/16 08:00 81 21 130/80 95 11/29/16 07:50 83 23 138/87 95 11/29/16 07:44 98.1 F 85 26 H 130/80 95 11/29/16 07:40 84 25 H 135/80 99 11/29/16 07:30 97.9 F 78 24 135/80 98 11/29/16 07:20 84 32 H 136/84 99 11/29/16 07:15 97.5 F L 77 22 136/84 11/29/16 07:10 80 30 H 130/82 99 11/29/16 07:00 85 24 130/82 95 11/29/16 06:50 87 17 132/82 99 11/29/16 06:40 89 19 128/78 96 11/29/16 06:30 97.6 F 82 20 128/78 100 11/29/16 06:20 76 23 130/84 99 11/29/16 06:10 90 25 H 122/77 100 11/29/16 06:00 85 25 H 122/77 100 11/29/16 05:50 85 28 H 119/79 98 11/29/16 05:40 82 19 116/69 98 11/29/16 05:30 81 19 116/69 98 11/29/16 05:28 98.3 F 92 H 25 H 132/79 98 11/29/16 05:20 88 18 113/73 93 11/29/16 05:15 98.1 F 86 20 113/73 90 11/29/16 05:10 82 18 125/77 92 11/29/16 05:00 89 20 120/73 99 11/29/16 04:50 93 H 19 108/74 97 11/29/16 04:40 90 20 116/73 100 11/29/16 04:30 90 22 125/77 98 11/29/16 04:26 98 F 90 20 120/73 99 11/29/16 04:20 98 H 16 116/73 99 11/29/16 04:12 98.2 F 85 21 116/73 100 11/29/16 04:10 87 20 112/68 100 11/29/16 04:00 98 H 23 112/68 100 11/29/16 03:55 97.8 F 11/29/16 03:50 98 H 19 108/67 100 11/29/16 03:42 97.8 F 90 24 101/62 100 11/29/16 03:40 91 H 22 101/62 100 11/29/16 03:30 89 20 101/62 100 11/29/16 03:20 92 H 18 104/63 100 11/29/16 03:12 98.2 F 93 H 23 104/63 11/29/16 03:10 93 H 21 95/57 100 11/29/16 03:00 91 H 19 95/57 100 11/29/16 02:50 94 H 19 97/59 100 11/29/16 02:42 98.1 F 96 H 19 97/59 11/29/16 02:40 99 H 23 102/60 100 11/29/16 02:30 95 H 20 98/54 100 11/29/16 02:20 99 H 19 99/59 100 11/29/16 02:12 97.9 F 93 H 21 99/59 11/29/16 02:10 96 H 20 102/60 100 11/29/16 02:00 98 H 20 102/60 100 11/29/16 01:50 101 H 26 H 106/59 100 11/29/16 01:42 97.7 F 96 H 26 H 106/59 11/29/16 01:40 99 H 19 98/58 100 11/29/16 01:30 98 H 19 98/58 100 11/29/16 01:20 97 H 20 97/53 100 11/29/16 01:12 98.2 F 102 H 21 91/50 11/29/16 01:10 106 H 16 91/50 100 11/29/16 01:00 100 H 22 91/50 100 11/29/16 00:57 98.2 F 105 H 23 95/50 11/29/16 00:50 96 H 19 92/57 100 11/29/16 00:40 96 H 21 92/57 100 11/29/16 00:30 99 H 22 92/57 100 11/29/16 00:20 105 H 22 92/57 100 11/29/16 00:10 95 H 18 92/57 100 11/29/16 00:05 97.7 F 11/29/16 00:00 95 H 21 92/57 100 11/28/16 23:50 105 H 25 H 80/47 98 11/28/16 23:40 103 H 23 80/47 100 11/28/16 23:30 102 H 21 80/47 100 11/28/16 23:20 98 H 14 80/47 100 11/28/16 23:10 97 H 21 80/47 98 11/28/16 22:00 99 11/28/16 19:57 97.5 F L 11/28/16 18:50 81/41 97 11/28/16 18:45 99 H 20 89/46 11/28/16 18:30 90/46 11/28/16 18:14 18 90/46 11/28/16 16:20 98.4 F 102 H 18 91/55 Intake and Output 11/28/16 11/29/16 11/29/16 23:59 07:59 15:59 Intake Total 480 1350 515 Output Total 200 250 Balance 280 1100 515 Intake: IV 1100 265 D5ns 1,000 ml @ 125 mls/ 1000 hr IV DIRECT RACHAEL Rx#: [id number] MAGNESIUM SULFATE 40GM/ 265 1000ML 40 gm In 1,000 ml @ 1 GM/HR 25 mls/hr IV DIRECT RACHAEL Rx#:[id number] ceFAZolin 2 GM In NaCl 0. 100 9% 100 ml @ 200 mls/hr IV Q8HR [facility] Rx#:[id number] Oral 480 Blood Product 250 250 Fresh Frozen Plasma 0 Thawed Unit [id number] Leukoreduced Red Blood 250 Cells Unit [id number] Leukoreduced Red Blood 0 250 Cells Unit [id number] Output: Urine 200 250 Indwelling Catheter 200 250 Other: Total, Intake Amount 480 Total, Output Amount 200 250 Voiding Method Indwelling Catheter Indwelling Catheter - Exam Breasts: Present: normal Cardiovascular: Present: Regular rate, Normal S1 Lungs: Present: Clear to auscultation, Normal air movement Abdomen: Present: normal appearance, soft, distention, tenderness, abnormal bowel sounds Vulva: both: normal Uterus: Present: tenderness, fundal height at umbilicus Extremities: Present: normal Deep Tendon Reflex Grade: Normal +2 Incision: Present: dry, dressed - Labs Labs: Abnormal lab results 11/27/16 11/28/16 11/28/16 Range/Units 15:00 18:40 18:40 WBC (4.5-11.0) K/mm3 RBC (3.65-5.03) M/mm3 Hgb 7.2 L D (10.1-14.3) gm/dl Hct 22.7 L D (30.3-42.9) % MCH (28-32) pg Lymphocytes % (Manual) (13.4-35.0) % Seg Neutrophils # Man (1.8-7.7) K/mm3 Lymphocytes # (Manual) (1.2-5.4) K/mm3 PT (12.2-14.9) Sec. INR (0.87-1.13) Carbon Dioxide (22-30) mmol/L Glucose (65-100) mg/dL Calcium (8.4-10.2) mg/dL Magnesium 6.40 H (1.7-2.3) mg/dL Alkaline Phosphatase (35-129) units/L Total Protein (6.3-8.2) g/dL Albumin (3.9-5) g/dL Crossmatch See Detail 11/28/16 11/28/16 11/28/16 Range/Units 18:40 18:40 18:40 WBC 21.7 H (4.5-11.0) K/mm3 RBC 2.69 L (3.65-5.03) M/mm3 Hgb 7.2 L (10.1-14.3) gm/dl Hct 22.7 L (30.3-42.9) % MCH 27 L (28-32) pg Lymphocytes % (Manual) (13.4-35.0) % Seg Neutrophils # Man (1.8-7.7) K/mm3 Lymphocytes # (Manual) (1.2-5.4) K/mm3 PT 15.3 H (12.2-14.9) Sec. INR 1.15 H (0.87-1.13) Carbon Dioxide 19 L (22-30) mmol/L Glucose 124 H (65-100) mg/dL Calcium 6.4 L (8.4-10.2) mg/dL Magnesium (1.7-2.3) mg/dL Alkaline Phosphatase 386 H (35-129) units/L Total Protein 3.4 L (6.3-8.2) g/dL Albumin 1.7 L (3.9-5) g/dL Crossmatch 11/28/16 11/29/16 11/29/16 Range/Units 22:05 01:04 01:04 WBC 28.0 H (4.5-11.0) K/mm3 RBC 2.71 L (3.65-5.03) M/mm3 Hgb 7.3 L 7.2 L (10.1-14.3) gm/dl Hct 22.9 L 23.7 L (30.3-42.9) % MCH 27 L (28-32) pg Lymphocytes % (Manual) 1.0 L (13.4-35.0) % Seg Neutrophils # Man 26.3 H (1.8-7.7) K/mm3 Lymphocytes # (Manual) 0.3 L (1.2-5.4) K/mm3 PT (12.2-14.9) Sec. INR (0.87-1.13) Carbon Dioxide (22-30) mmol/L Glucose (65-100) mg/dL Calcium (8.4-10.2) mg/dL Magnesium 6.60 H (1.7-2.3) mg/dL Alkaline Phosphatase (35-129) units/L Total Protein (6.3-8.2) g/dL Albumin (3.9-5) g/dL Crossmatch 11/29/16 Range/Units 12:53 WBC 24.7 H (4.5-11.0) K/mm3 RBC 3.37 L (3.65-5.03) M/mm3 Hgb 9.4 L (10.1-14.3) gm/dl Hct 28.1 L (30.3-42.9) % MCH (28-32) pg Lymphocytes % (Manual) (13.4-35.0) % Seg Neutrophils # Man (1.8-7.7) K/mm3 Lymphocytes # (Manual) (1.2-5.4) K/mm3 PT (12.2-14.9) Sec. INR (0.87-1.13) Carbon Dioxide (22-30) mmol/L Glucose (65-100) mg/dL Calcium (8.4-10.2) mg/dL Magnesium (1.7-2.3) mg/dL Alkaline Phosphatase (35-129) units/L Total Protein (6.3-8.2) g/dL Albumin (3.9-5) g/dL Crossmatch
[2016-11-29 15:18] LABS: Basophils % (Manual) 0 % (0.0-1.8); Blastocytes % (Manual) 0 %; Eosinophils % (Manual) 0 % (0.0-4.3)
[2016-11-29 15:19] LABS: Giant Platelets Rare; Platelet Estimate Consistent w Auto
[2016-11-29 15:20] LABS: Diff Status Complete; Microcytosis Few; Poikilocytosis Few
[2016-11-29 19:28] LABS: Hematocrit 27.3 % (30.3-42.9); Mean Corpuscular HGB Conc 33 % (30-34); Mean Corpuscular Hemoglobin 28 pg (28-32); Mean Corpuscular Volume 84 fl (79-97); Platelet Count 125 K/mm3 (140-440); Red Blood Count 3.26 M/mm3 (3.65-5.03); Red Cell Distribution Width 14.6 % (13.2-15.2)
[2016-11-29 19:38] LABS: White Blood Count 24.5 K/mm3 (4.5-11.0)
[2016-11-29 20:15] LABS: Basophils % (Manual) 0 % (0.0-1.8); Blastocytes % (Manual) 0 %; Eosinophils % (Manual) 0 % (0.0-4.3)
[2016-11-29 20:17] LABS: Anisocytosis 1+; Diff Status Complete; Platelet Estimate Consistent w Auto; Poikilocytosis Few
--- NOTE | 2016-11-29 20:32 | Progress Note ---
Assessment and Plan - Patient Problems (1) Hypovolemia due to hemorrhage Current Visit: Yes Status: Acute Plan to address problem: IV Fluids and PRBC transfusion as necessary. (2) Hypotension Current Visit: Yes Status: Acute Qualifiers: Hypotension type: maternal hypotension of Trimester: T Plan to address problem: Hypotension sec to Blood Loss.IV fluids and PRBC for now (3) Hematoma of uterus Current Visit: Yes Status: Acute Qualifiers: Encounter type: initial encounter Qualified Code(s): S37.62XA - Contusion of uterus, initial encounter Plan to address problem: UFE if necessary. Transfuse Defer to Quality Liaison reg evacuation (4) Leukocytosis Current Visit: Yes Status: Acute Qualifiers: Leukocytosis type: L Plan to address problem: Reactive Stress induced Empiric abx On Cefazolin IV q 8 h (5) Pericardial effusion Current Visit: Yes Status: Acute Plan to address problem: Mild to moderate Not sure whether it is clinically significant. Incidental finding on Abd CT Will get Echo and consult Cardiology (6) DVT prophylaxis Current Visit: Yes Status: Acute Plan to address problem: scd's Subjective Date of service: 11/29/16 Principal diagnosis: s/p c/sec, severe pree , hypotesnidon , hypovolemic Interval history: Feeling lot better todat. Objective - Constitutional Vitals: Vital Signs - 12hr 11/29/16 11/29/16 11/29/16 08:30 08:31 08:40 Temperature 98.1 F Pulse Rate 82 81 84 Respiratory 20 26 H 21 Rate Blood Pressure 138/79 138/79 130/80 O2 Sat by Pulse 95 96 95 Oximetry 11/29/16 11/29/16 11/29/16 08:50 09:00 09:10 Temperature 98.2 F Pulse Rate 84 83 79 Respiratory 22 21 20 Rate Blood Pressure 136/83 130/81 130/81 O2 Sat by Pulse 97 96 97 Oximetry 11/29/16 11/29/16 11/29/16 09:20 09:30 09:40 Temperature 97.9 F Pulse Rate 81 83 83 Respiratory 21 24 23 Rate Blood Pressure 137/81 124/76 124/76 O2 Sat by Pulse 97 97 96 Oximetry 11/29/16 11/29/16 11/29/16 09:50 10:00 10:10 Temperature 98.1 F Pulse Rate 83 80 86 Respiratory 21 23 22 Rate Blood Pressure 129/79 134/85 134/85 O2 Sat by Pulse 97 99 99 Oximetry 11/29/16 11/29/16 11/29/16 10:20 10:30 10:40 Temperature Pulse Rate 83 86 87 Respiratory 23 21 26 H Rate Blood Pressure 135/88 138/90 138/90 O2 Sat by Pulse 99 97 99 Oximetry 11/29/16 11/29/16 11/29/16 10:50 11:00 11:10 Temperature Pulse Rate 82 84 83 Respiratory 19 23 26 H Rate Blood Pressure 129/89 143/92 143/92 O2 Sat by Pulse 98 95 97 Oximetry 11/29/16 11/29/16 11/29/16 11:20 11:30 11:40 Temperature Pulse Rate 85 83 86 Respiratory 26 H 20 24 Rate Blood Pressure 142/90 134/84 134/84 O2 Sat by Pulse 98 98 96 Oximetry 11/29/16 11/29/16 11/29/16 11:50 12:00 12:10 Temperature 98.0 F Pulse Rate 89 90 90 Respiratory 25 H 26 H 27 H Rate Blood Pressure 138/91 137/83 137/83 O2 Sat by Pulse 97 96 100 Oximetry 11/29/16 11/29/16 11/29/16 12:20 12:30 12:40 Temperature Pulse Rate 90 84 76 Respiratory 24 25 H 22 Rate Blood Pressure 137/82 146/88 146/88 O2 Sat by Pulse 100 100 99 Oximetry 11/29/16 11/29/16 11/29/16 12:50 13:00 13:10 Temperature Pulse Rate 73 90 80 Respiratory 21 22 21 Rate Blood Pressure 125/80 138/84 138/84 O2 Sat by Pulse 98 100 100 Oximetry 11/29/16 11/29/16 11/29/16 13:20 13:30 13:40 Temperature Pulse Rate 78 73 81 Respiratory 26 H 19 22 Rate Blood Pressure 136/79 142/78 142/78 O2 Sat by Pulse 100 100 100 Oximetry 11/29/16 11/29/16 11/29/16 13:50 14:00 14:10 Temperature Pulse Rate 91 H 88 97 H Respiratory 21 28 H 34 H Rate Blood Pressure 138/84 138/84 138/84 O2 Sat by Pulse 100 100 100 Oximetry 11/29/16 11/29/16 11/29/16 14:20 14:30 14:40 Temperature Pulse Rate 90 113 H 97 H Respiratory 24 28 H 26 H Rate Blood Pressure 138/84 138/84 138/84 O2 Sat by Pulse 99 96 Oximetry 11/29/16 11/29/16 11/29/16 15:02 15:10 15:20 Temperature Pulse Rate 103 H 87 94 H Respiratory 24 24 18 Rate Blood Pressure 138/84 142/84 136/91 O2 Sat by Pulse 92 100 89 Oximetry 11/29/16 11/29/16 11/29/16 15:30 15:40 15:50 Temperature Pulse Rate 83 84 87 Respiratory 18 27 H 20 Rate Blood Pressure 133/87 133/87 134/79 O2 Sat by Pulse 90 97 96 Oximetry 11/29/16 11/29/16 11/29/16 16:00 16:11 16:21 Temperature 97.5 F L Pulse Rate 80 83 87 Respiratory 21 22 22 Rate Blood Pressure 134/79 127/79 O2 Sat by Pulse 97 Oximetry 11/29/16 11/29/16 11/29/16 16:30 16:41 16:51 Temperature Pulse Rate 85 87 95 H Respiratory 28 H 22 14 Rate Blood Pressure 130/85 130/85 142/91 O2 Sat by Pulse Oximetry 11/29/16 11/29/16 11/29/16 17:00 17:11 17:21 Temperature Pulse Rate 87 91 H 87 Respiratory 23 16 31 H Rate Blood Pressure 145/81 145/81 139/82 O2 Sat by Pulse Oximetry 11/29/16 11/29/16 11/29/16 17:30 17:41 17:51 Temperature Pulse Rate 96 H 85 96 H Respiratory 20 18 18 Rate Blood Pressure 150/89 150/89 145/92 O2 Sat by Pulse Oximetry 11/29/16 11/29/16 18:00 19:40 Temperature 98.5 F Pulse Rate 88 Respiratory 28 H Rate Blood Pressure 142/85 O2 Sat by Pulse Oximetry General appearance: Present: no acute distress, well-nourished - EENT Eyes: PERRL, EOM intact ENT: hearing intact, clear oral mucosa Ears: bilateral: normal - Neck Neck: supple, normal ROM - Respiratory Respiratory effort: normal Respiratory: bilateral: CTA - Breasts Breasts: normal - Cardiovascular Heart rate: 70 Rhythm: regular Heart Sounds: Present: S1 & S2. Absent: gallop, rub Extremities: pulses intact, No edema, normal color, Full ROM - Gastrointestinal General gastrointestinal: Present: soft, non-tender, non-distended, normal bowel sounds - Genitourinary Female genitourinary: normal - Integumentary Integumentary: clear, warm, dry - Musculoskeletal Musculoskeletal: 1, strength equal bilaterally - Neurologic Neurologic: moves all extremities - Psychiatric Psychiatric: memory intact, appropriate mood/affect, intact judgment & insight - Labs CBC & Chem 7: 11/29/16 18:41 11/28/16 18:40 Labs: Abnormal lab results 11/27/16 11/28/16 11/29/16 Range/Units 15:00 22:05 01:04 WBC (4.5-11.0) K/mm3 RBC (3.65-5.03) M/mm3 Hgb 7.3 L (10.1-14.3) gm/dl Hct 22.9 L (30.3-42.9) % MCH (28-32) pg Plt Count (140-440) K/mm3 Seg Neuts % (Manual) (40.0-70.0) % Lymphocytes % (Manual) (13.4-35.0) % Seg Neutrophils # Man (1.8-7.7) K/mm3 Lymphocytes # (Manual) (1.2-5.4) K/mm3 Magnesium 6.60 H (1.7-2.3) mg/dL Crossmatch See Detail 11/29/16 11/29/16 11/29/16 Range/Units 01:04 12:53 12:53 WBC 28.0 H 24.7 H (4.5-11.0) K/mm3 RBC 2.71 L 3.37 L (3.65-5.03) M/mm3 Hgb 7.2 L 9.4 L (10.1-14.3) gm/dl Hct 23.7 L 28.1 L (30.3-42.9) % MCH 27 L (28-32) pg Plt Count (140-440) K/mm3 Seg Neuts % (Manual) 97.0 H (40.0-70.0) % Lymphocytes % (Manual) 1.0 L 1.0 L (13.4-35.0) % Seg Neutrophils # Man 26.3 H 24.0 H (1.8-7.7) K/mm3 Lymphocytes # (Manual) 0.3 L 0.2 L (1.2-5.4) K/mm3 Magnesium 6.60 H (1.7-2.3) mg/dL Crossmatch 11/29/16 11/29/16 Range/Units 18:41 19:38 WBC 24.5 H (4.5-11.0) K/mm3 RBC 3.26 L (3.65-5.03) M/mm3 Hgb 9.0 L (10.1-14.3) gm/dl Hct 27.3 L (30.3-42.9) % MCH (28-32) pg Plt Count 125 L (140-440) K/mm3 Seg Neuts % (Manual) (40.0-70.0) % Lymphocytes % (Manual) 5.0 L (13.4-35.0) % Seg Neutrophils # Man 22.5 H (1.8-7.7) K/mm3 Lymphocytes # (Manual) (1.2-5.4) K/mm3 Magnesium 5.30 H (1.7-2.3) mg/dL Crossmatch
[2016-11-29] MEDS: MYLICON PO PRN (21:40)
[2016-11-29 23:52] LABS: Basophils % (Auto) 0.1 % (0.0-1.8); Eosinophils % (Auto) 0.1 % (0.0-4.3); Hemoglobin 6.1 gm/dl (10.1-14.3); Mean Corpuscular HGB Conc 31 % (30-34); Mean Corpuscular Hemoglobin 27 pg (28-32); Mean Corpuscular Volume 90 fl (79-97); Red Blood Count 2.23 M/mm3 (3.65-5.03); Red Cell Distribution Width 15.7 % (13.2-15.2); White Blood Count 16.1 K/mm3 (4.5-11.0)
[2016-11-29 23:55] LABS: Platelet Count 99 K/mm3 (140-440)
[2016-11-30] MEDS: ceFAZolin 2 GM in NACL 0.9% 100 ML IV SCH ×2 (00:17→09:02)
[2016-11-30] MEDS: ZOFRAN IV PRN (03:00)
[2016-11-30] MEDS: MORPHINE IV PRN ×3 (03:05→20:31)
[2016-11-30 04:17] LABS: Basophils % (Auto) 0.1 % (0.0-1.8); Mean Corpuscular HGB Conc 30 % (30-34); Mean Corpuscular Hemoglobin 27 pg (28-32); Mean Corpuscular Volume 91 fl (79-97); Red Blood Count 1.88 M/mm3 (3.65-5.03); White Blood Count 11.1 K/mm3 (4.5-11.0)
[2016-11-30 04:18] LABS: Platelet Count 82 K/mm3 (140-440)
[2016-11-30 04:20] LABS: Hematocrit 17.1 % (30.3-42.9); Hemoglobin 5.1 gm/dl (10.1-14.3)
[2016-11-30] MEDS: D5NS 1,000 ML IV SCH (05:20)
[2016-11-30 05:22] LABS: Hematocrit 21.9 % (30.3-42.9); Hemoglobin 7.2 gm/dl (10.1-14.3); Mean Corpuscular HGB Conc 33 % (30-34); Mean Corpuscular Hemoglobin 27 pg (28-32); Mean Corpuscular Volume 83 fl (79-97); Platelet Count 113 K/mm3 (140-440); Red Blood Count 2.64 M/mm3 (3.65-5.03); Red Cell Distribution Width 14.8 % (13.2-15.2); White Blood Count 17.5 K/mm3 (4.5-11.0)
--- NOTE | 2016-11-30 05:25 | Event Note ---
Date: 11/30/16 Spoke with the nurse (5am) and was reported a stat level hemoglobin at 5.1. The nurse reported stable vss and clinically hemodynamically stable. The nurse reported ambulation and passing of gas and bm today . Pain contolled with oral meds. The patient was ordered a repeat CBC stat with 2U pRBCs. Dr. Carbajal was contacted in concern for a UFE in which will be evaluated by Dr. Roche today and possible proceed with to follow a exam under anesthesia and removal of large hematoma with D&C. Patient was made NPO.
[2016-11-30 05:56] LABS: Basophils % (Manual) 0 % (0.0-1.8); Blastocytes % (Manual) 0 %; Eosinophils % (Manual) 0 % (0.0-4.3)
[2016-11-30 05:57] LABS: Diff Status Complete; Platelet Estimate Appears Decreased
[2016-11-30] MEDS ORDERED: NACL 0.9% 500 ML 500 ML IV ONE ×2 (06:12→09:00)
--- NOTE | 2016-11-30 08:48 | Progress Note ---
Assessment and Plan A/P POD#2 s/p Primary c/sec for NRFHT Severe Preeclampsia - been on Mag for 24 hrs d/c now Hypotension- resolved s/p 2 U PRBC and FFP h 7.2 pre-- 9.0- post blood transfusion --6.0-5.1--7.2 blood transfusion of 2U stat now Await Dr. Carbajal for UFE Npo consider changing abx from Ancef to Gent and Clinda for endometrititis consider labetolol for BP control Subjective - Subjective Date of service: 11/30/16 Principal diagnosis: s/p c/sec, severe pree , hypotension , hypovolemic Interval history: This is a 26 yo at 37 weeks with partial care. Was last seen 4 weeks ago in [facility]. She rports no hx of HTN nor any medical problems in this . She comes to triage c/o nausea and vomintg and diarrhea for the last 3 weeks. She reports good fm no vb no leaking. She also denies tomas, bv, nor scotomata. She states that she associate with her nausea and vomiting right upper quadrant pain and some back pain. IOL for severe preeclampsia started on Mag. NRFHT and proceeded with primary c/ sec. difficult delivery secondary to wedge of baby head in pelvis. T incision with delivery of argenis breech . subsequently became hypotensive and hypovolemic. Patient transferred to ICU 2 U prbc and FFP given blood count stable for [address] showed a hematoma of [id number]. IR Dr. Carbajal consulted on case for possible UFE and plan for EUA and D and C. Patient reports: appetite normal, voiding normally, flatus, bowel movement ( soft ), no nauseated : doing well, bottle feeding Objective - Vital Signs Latest vital signs: Vital Signs Temp Pulse Resp BP Pulse Ox 11/30/16 08:05 100 11/30/16 08:00 99.5 F 11/30/16 06:41 80 27 H 160/90 100 11/30/16 06:30 85 26 H 160/90 99 11/30/16 06:21 82 24 153/89 99 11/30/16 06:11 92 H 22 153/89 99 11/30/16 06:00 153/91 11/30/16 05:41 95 H 18 147/104 11/30/16 05:30 96 H 27 H 152/101 11/30/16 05:21 89 29 H 144/94 11/30/16 05:11 95 H 25 H 144/94 11/30/16 05:00 88 29 H 144/94 100 11/30/16 04:51 96 H 22 146/98 100 11/30/16 04:41 89 31 H 146/98 11/30/16 04:30 93 H 30 H 146/98 11/30/16 04:21 92 H 22 142/93 11/30/16 04:11 94 H 20 142/93 11/30/16 04:05 17 99 11/30/16 04:00 95 H 35 H 142/93 11/30/16 03:51 93 H 25 H 138/87 11/30/16 03:41 89 21 138/87 11/30/16 03:35 18 11/30/16 03:30 95 H 27 H 138/87 11/30/16 03:21 88 23 144/97 11/30/16 03:11 88 23 144/97 11/30/16 03:05 27 H 11/30/16 03:03 99.3 F 11/30/16 03:00 93 H 27 H 144/97 11/30/16 02:51 92 H 24 154/97 100 11/30/16 02:41 84 19 154/97 99 11/30/16 02:30 98 H 33 H 164/100 96 11/30/16 02:21 91 H 29 H 160/99 98 11/30/16 02:11 92 H 19 160/99 98 11/30/16 02:00 92 H 29 H 160/99 98 11/30/16 01:51 89 28 H 132/75 96 11/30/16 01:41 91 H 30 H 132/75 95 11/30/16 01:30 82 23 137/82 99 11/30/16 01:21 84 23 132/75 97 11/30/16 01:11 84 22 132/75 97 11/30/16 01:00 84 21 132/75 98 11/30/16 00:51 80 20 143/82 98 11/30/16 00:41 94 H 17 143/82 97 11/30/16 00:30 90 22 151/92 97 11/30/16 00:21 89 29 H 143/82 97 11/30/16 00:11 87 25 H 143/82 98 11/30/16 00:00 87 17 143/82 100 11/29/16 23:51 91 H 25 H 138/84 99 11/29/16 23:41 100 H 21 138/84 100 11/29/16 23:32 98.7 F 11/29/16 23:30 89 23 138/84 100 11/29/16 23:21 101 H 23 142/93 98 11/29/16 23:11 89 19 142/93 99 11/29/16 23:00 90 26 H 142/93 98 11/29/16 22:51 89 20 143/89 97 11/29/16 22:41 96 H 22 143/89 98 11/29/16 22:30 93 H 22 143/89 11/29/16 22:21 96 H 31 H 150/96 11/29/16 22:11 88 24 150/96 11/29/16 22:00 102 H 16 150/96 99 11/29/16 21:51 97 H 27 H 135/87 11/29/16 21:41 101 H 19 135/87 11/29/16 21:30 88 17 142/87 11/29/16 21:21 92 H 27 H 143/91 11/29/16 21:15 19 11/29/16 21:11 94 H 24 135/87 11/29/16 21:07 93 H 24 135/87 11/29/16 21:00 97 H 37 H 135/87 11/29/16 20:51 97 H 25 H 126/83 11/29/16 20:41 97 H 26 H 132/82 11/29/16 20:30 89 23 132/82 11/29/16 20:21 99 H 21 127/78 11/29/16 20:11 94 H 21 146/86 11/29/16 20:00 110 H 29 H 146/86 11/29/16 19:51 94 H 27 H 134/80 11/29/16 19:41 98 H 23 137/82 11/29/16 19:40 98.5 F 11/29/16 19:30 94 H 26 H 137/82 11/29/16 19:21 97 H 22 128/80 11/29/16 19:11 93 H 26 H 134/81 11/29/16 19:00 91 H 32 H 134/81 11/29/16 18:51 96 H 32 H 140/77 11/29/16 18:41 100 H 30 H 140/77 11/29/16 18:30 91 H 29 H 140/77 11/29/16 18:21 96 H 17 137/87 11/29/16 18:11 95 H 32 H 142/85 11/29/16 18:00 88 28 H 142/85 11/29/16 17:51 96 H 18 145/92 11/29/16 17:41 85 18 150/89 11/29/16 17:30 96 H 20 150/89 11/29/16 17:21 87 31 H 139/82 11/29/16 17:11 91 H 16 145/81 11/29/16 17:00 87 23 145/81 11/29/16 16:51 95 H 14 142/91 11/29/16 16:41 87 22 130/85 11/29/16 16:30 85 28 H 130/85 11/29/16 16:21 87 22 127/79 11/29/16 16:11 83 22 11/29/16 16:00 97.5 F L 80 21 134/79 97 11/29/16 15:50 87 20 134/79 96 11/29/16 15:40 84 27 H 133/87 97 11/29/16 15:30 83 18 133/87 90 11/29/16 15:20 94 H 18 136/91 89 11/29/16 15:10 87 24 142/84 100 11/29/16 15:02 103 H 24 138/84 92 11/29/16 14:40 97 H 26 H 138/84 96 11/29/16 14:30 113 H 28 H 138/84 11/29/16 14:20 90 24 138/84 99 11/29/16 14:10 97 H 34 H 138/84 100 11/29/16 14:00 88 28 H 138/84 100 11/29/16 13:50 91 H 21 138/84 100 11/29/16 13:40 81 22 142/78 100 11/29/16 13:30 73 19 142/78 100 11/29/16 13:20 78 26 H 136/79 100 11/29/16 13:10 80 21 138/84 100 11/29/16 13:00 90 22 138/84 100 11/29/16 12:50 73 21 125/80 98 11/29/16 12:40 76 22 146/88 99 11/29/16 12:30 84 25 H 146/88 100 11/29/16 12:20 90 24 137/82 100 11/29/16 12:10 90 27 H 137/83 100 11/29/16 12:00 98.0 F 90 26 H 137/83 96 11/29/16 11:50 89 25 H 138/91 97 11/29/16 11:40 86 24 134/84 96 11/29/16 11:30 83 20 134/84 98 11/29/16 11:20 85 26 H 142/90 98 11/29/16 11:10 83 26 H 143/92 97 11/29/16 11:00 84 23 143/92 95 11/29/16 10:50 82 19 129/89 98 11/29/16 10:40 87 26 H 138/90 99 11/29/16 10:30 86 21 138/90 97 11/29/16 10:20 83 23 135/88 99 11/29/16 10:10 86 22 134/85 99 11/29/16 10:00 98.1 F 80 23 134/85 99 11/29/16 09:50 83 21 129/79 97 11/29/16 09:40 83 23 124/76 96 11/29/16 09:30 97.9 F 83 24 124/76 97 11/29/16 09:20 81 21 137/81 97 11/29/16 09:10 79 20 130/81 97 11/29/16 09:00 98.2 F 83 21 130/81 96 11/29/16 08:50 84 22 136/83 97 Intake and Output 11/29/16 11/30/16 11/30/16 23:59 07:59 15:59 Intake Total 1160 1000 Output Total 1000 Balance 160 1000 Intake: IV 1100 1000 D5ns 1,000 ml @ 125 mls/ 1000 1000 hr IV DIRECT RACHAEL Rx#: [id number] ceFAZolin 2 GM In NaCl 0. 100 9% 100 ml @ 200 mls/hr IV Q8H RACHAEL Rx#:[id number] Oral 60 Output: Urine 1000 Indwelling Catheter 1000 Other: Total, Intake Amount 60 Total, Output Amount 1000 Voiding Method Indwelling Catheter Indwelling Catheter - Exam Breasts: Present: deferred Cardiovascular: Present: Regular rate, Normal S1 Lungs: Present: Clear to auscultation, Normal air movement Abdomen: Present: soft, distention, tenderness, normal bowel sounds Vulva: both: normal Uterus: Present: firm, tenderness, fundal height at umbilicus Extremities: Present: normal Incision: Present: normal, dry, intact. Absent: erythematous, suppurative, skin - Labs Labs: Abnormal lab results 11/27/16 11/29/16 11/29/16 Range/Units 15:00 12:53 12:53 WBC 24.7 H (4.5-11.0) K/mm3 RBC 3.37 L (3.65-5.03) M/mm3 Hgb 9.4 L (10.1-14.3) gm/dl Hct 28.1 L (30.3-42.9) % MCH (28-32) pg RDW (13.2-15.2) % Plt Count (140-440) K/mm3 Lymph % (Auto) (13.4-35.0) % Lymph # (1.2-5.4) K/mm3 [place] # (0.0-0.8) K/mm3 Seg Neutrophils % (40.0-70.0) % Seg Neuts % (Manual) 97.0 H (40.0-70.0) % Lymphocytes % (Manual) 1.0 L (13.4-35.0) % Seg Neutrophils # (1.8-7.7) K/mm3 Seg Neutrophils # Man 24.0 H (1.8-7.7) K/mm3 Lymphocytes # (Manual) 0.2 L (1.2-5.4) K/mm3 Magnesium 6.60 H (1.7-2.3) mg/dL Crossmatch See Detail 11/29/16 11/29/16 11/29/16 Range/Units 18:41 19:38 21:48 WBC 24.5 H 16.1 H (4.5-11.0) K/mm3 RBC 3.26 L 2.23 L (3.65-5.03) M/mm3 Hgb 9.0 L 6.1 L (10.1-14.3) gm/dl Hct 27.3 L 20.0 L D (30.3-42.9) % MCH 27 L (28-32) pg RDW 15.7 H (13.2-15.2) % Plt Count 125 L 99 L (140-440) K/mm3 Lymph % (Auto) 8.4 L (13.4-35.0) % Lymph # (1.2-5.4) K/mm3 [place] # 1.0 H (0.0-0.8) K/mm3 Seg Neutrophils % 85.3 H (40.0-70.0) % Seg Neuts % (Manual) (40.0-70.0) % Lymphocytes % (Manual) 5.0 L (13.4-35.0) % Seg Neutrophils # 13.7 H (1.8-7.7) K/mm3 Seg Neutrophils # Man 22.5 H (1.8-7.7) K/mm3 Lymphocytes # (Manual) (1.2-5.4) K/mm3 Magnesium 5.30 H (1.7-2.3) mg/dL Crossmatch 11/30/16 11/30/16 11/30/16 Range/Units 03:30 04:24 04:52 WBC 11.1 H 17.5 H (4.5-11.0) K/mm3 RBC 1.88 L 2.64 L (3.65-5.03) M/mm3 Hgb 5.1 L* 7.2 L (10.1-14.3) gm/dl Hct 17.1 L* 21.9 L (30.3-42.9) % MCH 27 L 27 L (28-32) pg RDW 16.0 H (13.2-15.2) % Plt Count 82 L 113 L (140-440) K/mm3 Lymph % (Auto) 7.9 L (13.4-35.0) % Lymph # 0.9 L (1.2-5.4) K/mm3 [place] # (0.0-0.8) K/mm3 Seg Neutrophils % 87.6 H (40.0-70.0) % Seg Neuts % (Manual) 94.0 H (40.0-70.0) % Lymphocytes % (Manual) 5.0 L (13.4-35.0) % Seg Neutrophils # 9.7 H (1.8-7.7) K/mm3 Seg Neutrophils # Man 16.5 H (1.8-7.7) K/mm3 Lymphocytes # (Manual) 0.9 L (1.2-5.4) K/mm3 Magnesium (1.7-2.3) mg/dL Crossmatch See Detail
[2016-11-30] MEDS: BENADRYL IV PRN ×2 (09:40→20:33)
[2016-11-30] MEDS: TYLENOL PO PRN (09:40)
[2016-11-30] MEDS ORDERED: CLEOCIN 600 MG/50 mL 600 MG/50 ML BAG IV SCH (10:00)
[2016-11-30] MEDS: FEOSOL PO SCH (10:29)
[2016-11-30] MEDS: PRENATAL VITAMIN PO SCH (10:29)
[2016-11-30] MEDS ORDERED: GARAMYCIN 400 MG in NACL 0.9% 100 ML IV SCH (11:00)
--- NOTE | 2016-11-30 11:19 | Anesthesia Consultation ---
Anesthesia Consult and Med Hx Date of service: 11/30/16 - Airway Anesthetic Teeth Evaluation: Good ROM Head & Neck: Adequate Mental/Hyoid Distance: Adequate Mallampati Class: Class II Intubation Access Assessment: Probably Good - Pulmonary Exam CTA: Yes - Cardiac Exam Cardiac Exam: RRR - Pre-Operative Health Status ASA Pre-Surgery Classification: ASA3 Proposed Anesthetic Plan: General - Pre-Anesthesia Comment Pre-Anesthesia Comments: Uterine Hematoma, Hypovolemia, Anemia - Cardiovascular System Hx Hypertension: Yes (PRE-ECLAMPSIA) - Hematic Hx Anemia: Yes (Blood Transfusions) Hx Sickle Cell Disease: Yes (+SC trait)
--- NOTE | 2016-11-30 11:44 | Consultation ---
History of Present Illness - Reason for Consult Consult date: 11/30/16 - History of Present Illness This is a 26-year-old female seen in consult for uterine artery embolization. She was suffering from severe preeclampsia and required a section for delivery of her baby 2 days ago. However, she had a drop in hemoglobin and became transfusion dependent soon afterwards. CT revealed an 18 cm hematoma in the lower uterine segment. Uterine artery embolization was requested prior to evacuation of the clot, in order to reduce intraoperative blood loss. Aside from preeclampsia, the patient has no other significant medical history. Past History Past Medical History: No medical history Past Surgical History: Social history: no significant social history, , lives with family ( recently moved to [place] to have help with her baby. livving with mother ), alcohol abuse, prescription drug abuse. denies: smoking Medications and Allergies Allergies Allergy/AdvReac Type Severity Reaction Status Date / Time No Known Allergies Allergy Unverified 11/27/16 10:34 Home Medications Medication Instructions Recorded Confirmed Last Taken Type Vit-Fe Fumar-FA [ 1 tab PO QDAY 11/27/16 11/27/16 11/27/16 History Vitamin] Active Meds: Active Medications Acetaminophen (Tylenol) 650 mg PO Q6H PRN PRN Reason: Pain, Mild (1-3) Last Admin: 11/30/16 09:40 Dose: 650 mg Acetaminophen/Hydrocodone Bitart ([place] 5/325) 2 each PO Q6H PRN PRN Reason: Pain, Moderate (4-6) Last Admin: 11/29/16 21:15 Dose: 2 each Butorphanol Tartrate (Stadol) 2 mg IV Q2H PRN PRN Reason: Pain , Severe (7-10) Last Admin: 11/28/16 06:00 Dose: 2 mg Diphenhydramine HCl (Benadryl) 25 mg IV Q4H PRN PRN Reason: PRIOR TO BLOOD Last Admin: 11/30/16 09:40 Dose: 25 mg Famotidine (Pepcid) 20 mg IV PREOP NR Fentanyl (Sublimaze) 100 mcg IV Q2H PRN PRN Reason: Labor Pain Ferrous Sulfate (Feosol) 325 mg PO QDAY RACHAEL Last Admin: 11/30/16 10:29 Dose: Not Given Hydralazine HCl (Apresoline) 5 mg IV Q30MIN PRN PRN Reason: Hypertension Last Admin: 11/27/16 17:05 Dose: 5 mg Hydrocortisone Acetate (Anucort-Hc) 25 mg [place] BID PRN PRN Reason: Hemorrhoids Dextrose/Sodium Chloride (D5ns) 1,000 mls @ 125 mls/hr IV DIRECT RACHAEL Last Admin: 11/30/16 05:20 Dose: 125 mls/hr Cefazolin Sodium 2 gm/ Sodium (Chloride) 100 mls @ 200 mls/hr IV Q8H RACHAEL Last Admin: 11/30/16 09:02 Dose: 200 mls/hr Clindamycin HCl (Cleocin 600 Mg/50 Ml) 600 mg in 50 mls @ 100 mls/hr IV Q8HR [facility] Last Admin: 11/30/16 10:17 Dose: 100 mls/hr Gentamicin Sulfate 400 mg/ (Sodium Chloride) 110 mls @ 200 mls/hr IV Q24H RACHAEL Sodium Chloride (Nacl 0.9% 1000 Ml) 1,000 mls @ 42 mls/hr IV DIRECT RACHAEL Ibuprofen (Motrin) 800 mg PO Q6H PRN PRN Reason: Pain, Mild (1-3) Magnesium Citrate (Citrate Of Magnesia) 300 ml PO QDAY PRN PRN Reason: Bowel Movement Last Admin: 11/29/16 13:40 Dose: 300 ml Magnesium Hydroxide (Milk Of Magnesia) 30 ml PO QHS PRN PRN Reason: Constip Unrelieved By Senna Metoclopramide HCl (Reglan) 10 mg IV Q6H PRN PRN Reason: Nausea And Vomiting Last Admin: 11/28/16 07:53 Dose: 10 mg Midazolam HCl (Versed) 2 mg IV PREOP NR Stop: 11/30/16 23:59 Mineral Oil (Mineral Oil) 30 ml PO QHS PRN PRN Reason: Constipation Morphine Sulfate (Morphine) 2 mg IV Q4H PRN PRN Reason: Pain, Moderate (4-6) Last Admin: 11/30/16 08:16 Dose: 2 mg Morphine Sulfate (Morphine) 4 mg IV Q4H PRN PRN Reason: Pain , Severe (7-10) Multi-Ingredient Ointment (Lansinoh) 1 applic TP PRN PRN PRN Reason: dryness/cracking Multivitamins/Iron/Calcium ( Vitamin) 1 each PO QDAY [facility] Last Admin: 11/30/16 10:29 Dose: Not Given Naloxone HCl (Narcan 0.4 Mg/1 Ml) 0.1 mg IV Q2MIN PRN PRN Reason: Res Rate </= 8 or 02 SAT < 92% Ondansetron HCl (Zofran) 4 mg IV Q8H PRN PRN Reason: Nausea And Vomiting Last Admin: 11/30/16 03:00 Dose: 4 mg Oxycodone/Acetaminophen (Percocet 5/325) 1 tab PO Q6H PRN PRN Reason: Pain, Moderate (4-6) Last Admin: 11/29/16 14:35 Dose: 1 tab Promethazine HCl (Phenergan) 25 mg [place] Q6H PRN PRN Reason: N/V IF NPO AND NO IV ACCESS Senna (Senokot) 17.2 mg PO QHS PRN PRN Reason: Constipation Simethicone (Mylicon) 80 mg PO Q6H PRN PRN Reason: Gas pain Last Admin: 11/29/16 21:40 Dose: 80 mg Witch [place]/Glycerin (Tucks Pad) 1 each TP PRN PRN PRN Reason: Hemorrhoids/cleansing/soothing Exam - Constitutional Vitals: Temp Pulse Resp BP Pulse Ox 98.9 F 92 H 24 153/99 97 11/30/16 11:00 11/30/16 11:00 11/30/16 11:00 11/30/16 11:00 11/30/16 11:00 General appearance: Present: mild distress - EENT Eyes: Present: PERRL ENT: hearing intact - Respiratory Respiratory effort: normal - Abdominal General gastrointestinal: Present: tender, distended Results - Labs CBC & Chem 7: 11/30/16 04:52 11/28/16 18:40 Labs: Abnormal lab results 11/27/16 11/29/16 11/29/16 Range/Units 15:00 12:53 12:53 WBC 24.7 H (4.5-11.0) K/mm3 RBC 3.37 L (3.65-5.03) M/mm3 Hgb 9.4 L (10.1-14.3) gm/dl Hct 28.1 L (30.3-42.9) % MCH (28-32) pg RDW (13.2-15.2) % Plt Count (140-440) K/mm3 Lymph % (Auto) (13.4-35.0) % Lymph # (1.2-5.4) K/mm3 Will # (0.0-0.8) K/mm3 Seg Neutrophils % (40.0-70.0) % Seg Neuts % (Manual) 97.0 H (40.0-70.0) % Lymphocytes % (Manual) 1.0 L (13.4-35.0) % Seg Neutrophils # (1.8-7.7) K/mm3 Seg Neutrophils # Man 24.0 H (1.8-7.7) K/mm3 Lymphocytes # (Manual) 0.2 L (1.2-5.4) K/mm3 Magnesium 6.60 H (1.7-2.3) mg/dL Crossmatch See Detail 11/29/16 11/29/16 11/29/16 Range/Units 18:41 19:38 21:48 WBC 24.5 H 16.1 H (4.5-11.0) K/mm3 RBC 3.26 L 2.23 L (3.65-5.03) M/mm3 Hgb 9.0 L 6.1 L (10.1-14.3) gm/dl Hct 27.3 L 20.0 L D (30.3-42.9) % MCH 27 L (28-32) pg RDW 15.7 H (13.2-15.2) % Plt Count 125 L 99 L (140-440) K/mm3 Lymph % (Auto) 8.4 L (13.4-35.0) % Lymph # (1.2-5.4) K/mm3 Will # 1.0 H (0.0-0.8) K/mm3 Seg Neutrophils % 85.3 H (40.0-70.0) % Seg Neuts % (Manual) (40.0-70.0) % Lymphocytes % (Manual) 5.0 L (13.4-35.0) % Seg Neutrophils # 13.7 H (1.8-7.7) K/mm3 Seg Neutrophils # Man 22.5 H (1.8-7.7) K/mm3 Lymphocytes # (Manual) (1.2-5.4) K/mm3 Magnesium 5.30 H (1.7-2.3) mg/dL Crossmatch 11/30/16 11/30/16 11/30/16 Range/Units 03:30 04:24 04:52 WBC 11.1 H 17.5 H (4.5-11.0) K/mm3 RBC 1.88 L 2.64 L (3.65-5.03) M/mm3 Hgb 5.1 L* 7.2 L (10.1-14.3) gm/dl Hct 17.1 L* 21.9 L (30.3-42.9) % MCH 27 L 27 L (28-32) pg RDW 16.0 H (13.2-15.2) % Plt Count 82 L 113 L (140-440) K/mm3 Lymph % (Auto) 7.9 L (13.4-35.0) % Lymph # 0.9 L (1.2-5.4) K/mm3 Will # (0.0-0.8) K/mm3 Seg Neutrophils % 87.6 H (40.0-70.0) % Seg Neuts % (Manual) 94.0 H (40.0-70.0) % Lymphocytes % (Manual) 5.0 L (13.4-35.0) % Seg Neutrophils # 9.7 H (1.8-7.7) K/mm3 Seg Neutrophils # Man 16.5 H (1.8-7.7) K/mm3 Lymphocytes # (Manual) 0.9 L (1.2-5.4) K/mm3 Magnesium (1.7-2.3) mg/dL Crossmatch See Detail - Imaging and Cardiology CT scan - abdomen: report reviewed, image reviewed CT scan - pelvis: report reviewed, image reviewed Assessment and Plan I have reviewed the history and examined the patient. I will be planning uterine artery embolization for today prior to hematoma evacuation.
[2016-11-30] MEDS ORDERED: HEPARIN/NS 5000 UNIT/500ML(CATH LAB) 1,000 ML IR ONE (11:57)
[2016-11-30] MEDS ORDERED: ANCEF/STERILE WATER 2 GM/20 ML 2 GM/20 ML SYRINGE IV ONE (11:58)
[2016-11-30] MEDS ORDERED: XYLOCAINE 2% INFILTRATI ONE (11:58)
[2016-11-30] MEDS ORDERED: NACL 0.9% 1000 ML 1,000 ML IV SCH (12:00)
[2016-11-30] MEDS ORDERED: PEPCID IV NR (12:00)
[2016-11-30] MEDS ORDERED: VERSED IV NR (12:00)
[2016-11-30] MEDS: VERSED ONE ×2 (12:45→12:51)
[2016-11-30] MEDS: SUBLIMAZE ONE ×3 (12:45→13:16)
[2016-11-30] MEDS: GELFOAM TP ONE ×2 (13:13→13:40)
[2016-11-30] MEDS ORDERED: VERSED ONE ×3 (13:47→15:58)
--- NOTE | 2016-11-30 14:14 | Event Note ---
Date: 11/30/16 Patient transitioned to ICU post op from early on Wednesday morning secondary to hypotension. Patient was found to have uterine hematoma and anemic. Transfused and now is currently in IR for uterine artery embolization and will then go for D and C. Ok with monitoring in ICU one more night if OB would like and then transfer out to Mother/Baby unit.
[2016-11-30] MEDS ORDERED: HEPARIN/NS 5000 UNIT/500ML(CATH LAB) 500 ML IR ONE (14:16)
[2016-11-30] MEDS ORDERED: SUBLIMAZE ONE (14:23)
[2016-11-30] MEDS ORDERED: DIPRIVAN 10 MG/ML IV ONE ×2 (14:24→16:23)
[2016-11-30] MEDS ORDERED: NACL 0.9% 500 ML 500 ML IV SCH (15:06)
[2016-11-30] MEDS ORDERED: NACL 0.9% IR ONE (15:16)
[2016-11-30] MEDS ORDERED: CYTOTEC PR ONE (15:35)
[2016-11-30] MEDS ORDERED: XYLOCAINE MPF 2% ONE (15:39)
[2016-11-30] MEDS ORDERED: ZEMURON IV ONE (15:39)
[2016-11-30] MEDS ORDERED: QUELICIN ONE (15:39)
--- NOTE | 2016-11-30 15:47 | Operative Report ---
Operative Report Operative Report: Procedure: 1. Bilateral common iliac arteriography 2. Bilateral internal iliac arteriography 3. Bilateral uterine artery angiography 4. Bilateral embolization of the uterine arteries with Gelfoam 5. Ultrasound evaluation and access of the right common femoral artery Date of Procedure: 11/30/2016 History/Indication: 24-year-old female who developed severe intrauterine hemorrhage after section Physician: Rosemary Carbajal MD Technique/Procedural Details: The patient was prepped and draped in the usual sterile fashion. A timeout was performed. Local anesthetic was administered. Under continuous ultrasound guidance, the right common femoral artery was accessed with micropuncture technique. A J-wire was advanced to the aortic bifurcation, and a 5 [place] vascular sheath was placed. A REM catheter was advanced over the J-wire, and a J-wire was exchanged for a glide advantage wire. The glide advantage wire was used across the aortic bifurcation into the left common iliac artery. The flush catheter was then exchanged for a 4 [place] vertebral catheter. Arteriography of the internal and external iliac arteries was performed in multiple projections. Thereafter, a fathom wire and renegade high flow microcatheter for coaxially advanced through the vertebral catheter. The fathom wire was used to some selected the uterine arteries. The renegade catheter was advanced, and arteriography of the left uterine artery was performed. A standard Gelfoam slurry was prepared. From this point in the uterine artery, Gelfoam embolization was performed to the point of near arterial stasis. A Nando loop was formed in the aorta and used to select the right common iliac artery. Arteriography revealed no significant supply to the uterus from the right side. All wires and catheters were removed. Hemostasis was achieved with a 6 [place] Angio-Seal device. Sterile dressings were placed. The patient was then transported to the operating room for intrauterine hematoma evacuation. Discussion: The left uterine artery is dominant. There are multiple cross uterine collateral arteries that allowed a bilateral embolization from the left side. After embolization with Gelfoam, there is near complete arterial stasis in the left uterine artery. Specimen: None EBL: <5 cc
[2016-11-30] MEDS ORDERED: NEO SYNEPHRINE ONE (15:48)
[2016-11-30] MEDS ORDERED: NACL 0.9% 100 ML ONE (15:48)
[2016-11-30] MEDS ORDERED: PROAIR IH ONE (16:18)
[2016-11-30] MEDS ORDERED: NACL 0.9% 500 ML ONE (16:29)
[2016-11-30] MEDS ORDERED: ARTIFICIAL TEARS OPHTH OINT OU PRN (16:32)
[2016-11-30] MEDS ORDERED: VASELINE LIP THERAPY TP PRN (16:32)
[2016-11-30] MEDS: DIPRIVAN 10 MG/ML 1,000 MG/100 ML BOTTLE IV SCH ×3 (16:50→21:35)
[2016-11-30] MEDS ORDERED: NACL 0.9% 500 ML IV SCH (17:00)
--- NOTE | 2016-11-30 17:13 | Post Anesthesia Evaluation ---
- Post Anesthesia Evaluation Patient Participated: No Airway Patent: Yes Stable Respiratory Function: Yes Nausea/Vomiting: No Temp > 96.8F: Yes Pain Manageable: Yes Adequeate Hydration: Yes Anesthesia Complications: No Block Receding Appropriately: Not Applicable Patient on Ventilator: Yes
--- NOTE | 2016-11-30 17:38 | XRay Report ---
FINAL REPORT EXAM: XR CHEST 1V AP HISTORY: ETT placement TECHNIQUE: Single-view chest PRIORS: None. FINDINGS: There is an endotracheal tube with the tip at the level of proximal right mainstem bronchus. The inferior aspect of the left lung is cropped from the topography of the study.No focal consolidations are seen in the lungs.The cardiomediastinal silhouette is within normal limits for size and contour. No acute osseous abnormality is identified. IMPRESSION: 1. Endotracheal tube courses to the level of the right mainstem bronchus. This should be retracted slightly. C1
[2016-11-30 18:12] LABS: ABG Base Excess -2.6 mmol/L (-2.0-3.0); ABG HCO3 23.5 mmol/L (20.0-26.0); ABG Oxygen Saturation 98.7 % (95.0-99.0); ABG PCO2 45.4 mm Hg; ABG PH 7.331 pH Units (7.350-7.450); ABG PO2 144.4 mm Hg (80.0-90.0)
[2016-11-30] MEDS: APRESOLINE IV PRN (18:59)
[2016-11-30] MEDS ORDERED: VANCOMYCIN 1,500 MG in NACL 0.9% 500 ML 500 ML IV ONE (20:45)
--- NOTE | 2016-11-30 21:23 | Operative Report ---
Operative Report Operative Report: DATE OF OPERATION:11/30/2016 PREOPERATIVE DIAGNOSIS: Large hematoma in lower uteine segment and cervix POSTOPERATIVE DIAGNOSIS: CLAUDIA OPERATION PERFORMED: RHODA , Andreia D and Lisa. SURGEON: Suzette Iglesias MD ANESTHESIA: General. INTRAVENOUS FLUIDS: see anesthesia note URINE OUTPUT: 800 mL prior to surgery ESTIMATED BLOOD LOSS: Minimal. COMPLICATIONS: None. CONDITION: Stable. SPECIMEN: Large amount of formed blood clots . OPERATIVE FINDINGS: Exam under anesthesia revealed multiple large clots in vagina . The patient has a enlarged deviated uterus to the right . Cervix is soft, normal in appearance without lesions, tissue seen as os appearing flesh like ( possible endometrium). Uterus was not sounded already dilate. DESCRIPTION OF OPERATION: After consents were signed, the patient was taken to the OR where general anesthesia was obtained without difficulty. The patient was placed in Yellofin stirrups and prepped and draped in the normal sterile fashion in dorsal lithotomy position. A time-out was performed for patient safety. After the cyr was removed, a Graves speculum was used to visualize the cervix. The cervix was then grasped with ring forcep on the posterior postion. . A #10 flexible suction curette was then inserted into the uterine cavity and attached to the suction tubing. The suction device was then activated and the curette turned on and suctioned remaining clots. A sterile hand inserted to removed any remainign clots until completely empty. The swab for cultures was collected and sent to lab for cultures. . The instruments were then removed from the vagina, including the ring forceps. Hemostasis noted with minimal bleeding The instruments removed. The patient tolerated the procedure well. Needle, lap, and instrument counts were correct x2. The patient was taken to the CCU on vent secondary difficulty with intubation ( see anesthesia note)
--- NOTE | 2016-11-30 21:26 | Event Note ---
Date: 11/30/16 I called to report and give orders after speaking with ID concerning possible endometritis and changed abx from gent and clinda to zosyn and vanc. Patient had some sat issues aend BP and was directed to call ICU attending Dr. Miller. Called answering service and discused case with Dr. Lewis to assess and treat patient while in ICU. 2u PRBC was ordereed as was not implemented during intraop as previously ordered.
[2016-11-30 21:43] LABS: Bilirubin,Urine NEG (Negative); Blood,Urine SM (Negative); Granular Casts,Urine 1 /LPF; Ketones,Urine NEG (Negative); Leukocyte Esterase,Urine SM (Negative); Mucus,Urine FEW /HPF; Nitrite,Urine NEG (Negative); Urobilinogen,Urine < 2.0 mg/dL (<2.0)
[2016-11-30] MEDS ORDERED: ZOSYN/NS 4.5GM/100ML 4.5 GM/100 ML VIAL IV SCH (22:00)
[2016-11-30] MEDS ORDERED: VANCOMYCIN/NS 1 GM/250 ML 1 GM/250 ML BAG IV NR (22:00)
--- NOTE | 2016-11-30 22:24 | Consultation ---
History of Present Illness History of present illness: This is a patient with no signif PMHX who admitted for preelampsia sp delivery complicated by postop uterine bleed sp uterine art emboli and evacuaion of clot now on vent post op.. patient is presently sedated on vent with mother at bedside Past History Past Medical History: No medical history Past Surgical History: Social history: no significant social history, , lives with family ( recently moved to [place] to have help with her baby. livving with mother ), alcohol abuse, prescription drug abuse. denies: smoking Medications and Allergies Allergies Allergy/AdvReac Type Severity Reaction Status Date / Time No Known Allergies Allergy Unverified 11/27/16 10:34 Home Medications Medication Instructions Recorded Confirmed Last Taken Type Vit-Fe Fumar-FA [ 1 tab PO QDAY 11/27/16 11/27/16 11/27/16 History Vitamin] Active Meds: Active Medications Acetaminophen (Tylenol) 650 mg PO Q6H PRN PRN Reason: Pain, Mild (1-3) Last Admin: 11/30/16 09:40 Dose: 650 mg Acetaminophen/Hydrocodone Bitart ([place] 5/325) 2 each PO Q6H PRN PRN Reason: Pain, Moderate (4-6) Last Admin: 11/29/16 21:15 Dose: 2 each Butorphanol Tartrate (Stadol) 2 mg IV Q2H PRN PRN Reason: Pain , Severe (7-10) Last Admin: 11/28/16 06:00 Dose: 2 mg Diphenhydramine HCl (Benadryl) 25 mg IV Q4H PRN PRN Reason: PRIOR TO BLOOD Last Admin: 11/30/16 20:33 Dose: 25 mg Famotidine (Pepcid) 20 mg IV PREOP NR Stop: 11/30/16 23:59 Fentanyl (Sublimaze) 100 mcg IV Q2H PRN PRN Reason: Labor Pain Ferrous Sulfate (Feosol) 325 mg PO QDAY RACHAEL Last Admin: 11/30/16 10:29 Dose: Not Given Hydralazine HCl (Apresoline) 5 mg IV Q30MIN PRN PRN Reason: Hypertension Last Admin: 11/30/16 18:59 Dose: 5 mg Hydrocortisone Acetate (Anucort-Hc) 25 mg [place] BID PRN PRN Reason: Hemorrhoids Hydrophilic Ointment (Vaseline Lip Therapy) 1 applic TP Q2HR PRN PRN Reason: Dry Lips Dextrose/Sodium Chloride (D5ns) 1,000 mls @ 125 mls/hr IV DIRECT RACHAEL Last Admin: 11/30/16 05:20 Dose: 125 mls/hr Sodium Chloride (Nacl 0.9% 1000 Ml) 1,000 mls @ 42 mls/hr IV DIRECT RACHAEL Last Admin: 11/30/16 18:50 Dose: 42 mls/hr Sodium Chloride (Nacl 0.9% 500 Ml) 500 mls @ 0 mls/hr IV ONCE RACHAEL PRN Reason: As Directed Stop: 11/30/16 23:00 Propofol (Diprivan 10 Mg/Ml) 1,000 mg in 100 mls @ 2.177 mls/hr IV TITR RACHAEL; 5 MCG/KG/MIN PRN Reason: Protocol Last Admin: 11/30/16 21:35 Dose: 50 mcg/kg/min, 21.773 mls/hr Vancomycin HCl (Vancomycin/Ns 1 Gm/250 Ml) 1 gm in 250 mls @ 166.667 mls/hr IV Q12H RACHAEL Piperacillin Sod/Tazobactam Sod (Zosyn/Ns 4.5gm/100ml) 4.5 gm in 100 mls @ 200 mls/hr IV Q8H RACHAEL PRN Reason: Protocol Ibuprofen (Motrin) 800 mg PO Q6H PRN PRN Reason: Pain, Mild (1-3) Magnesium Citrate (Citrate Of Magnesia) 300 ml PO QDAY PRN PRN Reason: Bowel Movement Last Admin: 11/29/16 13:40 Dose: 300 ml Magnesium Hydroxide (Milk Of Magnesia) 30 ml PO QHS PRN PRN Reason: Constip Unrelieved By Senna Metoclopramide HCl (Reglan) 10 mg IV Q6H PRN PRN Reason: Nausea And Vomiting Last Admin: 11/28/16 07:53 Dose: 10 mg Midazolam HCl (Versed) 2 mg IV PREOP NR Stop: 11/30/16 23:59 Mineral Oil (Mineral Oil) 30 ml PO QHS PRN PRN Reason: Constipation Morphine Sulfate (Morphine) 2 mg IV Q4H PRN PRN Reason: Pain, Moderate (4-6) Last Admin: 11/30/16 08:16 Dose: 2 mg Morphine Sulfate (Morphine) 4 mg IV Q4H PRN PRN Reason: Pain , Severe (7-10) Last Admin: 11/30/16 20:31 Dose: 4 mg Multi-Ingred Cream/Lotion/Oil/Oint (Artificial Tears Ophth Oint) 1 applic OU Q4HR PRN PRN Reason: Dry Eye(s) Multi-Ingredient Ointment (Lansinoh) 1 applic TP PRN PRN PRN Reason: dryness/cracking Multivitamins/Iron/Calcium ( Vitamin) 1 each PO QDAY RACHAEL Last Admin: 11/30/16 10:29 Dose: Not Given Naloxone HCl (Narcan 0.4 Mg/1 Ml) 0.1 mg IV Q2MIN PRN PRN Reason: Res Rate </= 8 or 02 SAT < 92% Ondansetron HCl (Zofran) 4 mg IV Q8H PRN PRN Reason: Nausea And Vomiting Last Admin: 11/30/16 03:00 Dose: 4 mg Oxycodone/Acetaminophen (Percocet 5/325) 1 tab PO Q6H PRN PRN Reason: Pain, Moderate (4-6) Last Admin: 11/29/16 14:35 Dose: 1 tab Promethazine HCl (Phenergan) 25 mg [place] Q6H PRN PRN Reason: N/V IF NPO AND NO IV ACCESS Senna (Senokot) 17.2 mg PO QHS PRN PRN Reason: Constipation Simethicone (Mylicon) 80 mg PO Q6H PRN PRN Reason: Gas pain Last Admin: 11/29/16 21:40 Dose: 80 mg Sodium Chloride (Nacl 0.9% 500 Ml) 1 ml IV DIRECT RACHAEL Witch [place]/Glycerin (Tucks Pad) 1 each TP PRN PRN PRN Reason: Hemorrhoids/cleansing/soothing Review of Systems ROS unobtainable: due to endotracheal tube Physical Examination Vital signs: Vital Signs Pulse BP 71 140/94 11/27/16 10:36 vs 140/70 96 20 on AC 20 [id number] fio2 60 peep 5 General appearance: asleep, other (on vent) Eyes: non-icteric ENT: oropharynx moist Neck: supple Effort: normal Ascultation: Bilateral: clear Cardiovascular: regular rate and rhythm Gastrointestinal: non-distended Extremities: no cyanosis Musculoskeletal: no deformities other Results - Laboratory Findings CBC and BMP: 11/30/16 04:52 11/28/16 18:40 ABG ABG pH 7.331 pH Units (7.350-7.450) L 11/30/16 17:50 ABG pCO2 45.4 mm Hg 11/30/16 17:50 ABG pO2 144.4 mm Hg (80.0-90.0) H 11/30/16 17:50 ABG O2 Saturation 98.7 % (95.0-99.0) 11/30/16 17:50 PT/INR, D-dimer PT 15.3 Sec. (12.2-14.9) H 11/28/16 18:40 INR 1.15 (0.87-1.13) H 11/28/16 18:40 Abnormal lab findings: Abnormal Labs 11/27/16 11/27/16 11/27/16 10:40 14:55 14:55 WBC RBC Hgb Hct MCH 27 L RDW Plt Count Lymph % (Auto) Lymph # [place] # Seg Neutrophils % Seg Neuts % (Manual) Lymphocytes % (Manual) Seg Neutrophils # Seg Neutrophils # Man Lymphocytes # (Manual) PT INR ABG pH ABG pO2 ABG Base Excess VBG pH Carbon Dioxide Glucose Calcium Magnesium AST 60 H ALT 57 H Alkaline Phosphatase Lactate Dehydrogenase 353 H Total Protein Albumin Ur Specific [place] 1.031 H Urine WBC (Auto) 30.0 H Crossmatch 11/27/16 11/28/16 11/28/16 15:00 00:00 05:48 WBC RBC Hgb Hct MCH RDW Plt Count Lymph % (Auto) Lymph # [place] # Seg Neutrophils % Seg Neuts % (Manual) Lymphocytes % (Manual) Seg Neutrophils # Seg Neutrophils # Man Lymphocytes # (Manual) PT INR ABG pH ABG pO2 ABG Base Excess VBG pH Carbon Dioxide Glucose Calcium Magnesium 6.00 H 6.20 H AST ALT Alkaline Phosphatase Lactate Dehydrogenase Total Protein Albumin Ur Specific [place] Urine WBC (Auto) Crossmatch See Detail 11/28/16 11/28/16 11/28/16 08:30 12:37 18:40 WBC RBC Hgb Hct MCH RDW Plt Count Lymph % (Auto) Lymph # [place] # Seg Neutrophils % Seg Neuts % (Manual) Lymphocytes % (Manual) Seg Neutrophils # Seg Neutrophils # Man Lymphocytes # (Manual) PT INR ABG pH ABG pO2 ABG Base Excess VBG pH 7.297 L Carbon Dioxide Glucose Calcium Magnesium 5.70 H 6.40 H AST ALT Alkaline Phosphatase Lactate Dehydrogenase Total Protein Albumin Ur Specific [place] Urine WBC (Auto) Crossmatch 11/28/16 11/28/16 11/28/16 18:40 18:40 18:40 WBC RBC Hgb 7.2 L D Hct 22.7 L D MCH RDW Plt Count Lymph % (Auto) Lymph # [place] # Seg Neutrophils % Seg Neuts % (Manual) Lymphocytes % (Manual) Seg Neutrophils # Seg Neutrophils # Man Lymphocytes # (Manual) PT 15.3 H INR 1.15 H ABG pH ABG pO2 ABG Base Excess VBG pH Carbon Dioxide 19 L Glucose 124 H Calcium 6.4 L Magnesium AST ALT Alkaline Phosphatase 386 H Lactate Dehydrogenase Total Protein 3.4 L Albumin 1.7 L Ur Specific [place] Urine WBC (Auto) Crossmatch 11/28/16 11/28/16 11/29/16 18:40 22:05 01:04 WBC 21.7 H RBC 2.69 L Hgb 7.2 L 7.3 L Hct 22.7 L 22.9 L MCH 27 L RDW Plt Count Lymph % (Auto) Lymph # [place] # Seg Neutrophils % Seg Neuts % (Manual) Lymphocytes % (Manual) Seg Neutrophils # Seg Neutrophils # Man Lymphocytes # (Manual) PT INR ABG pH ABG pO2 ABG Base Excess VBG pH Carbon Dioxide Glucose Calcium Magnesium 6.60 H AST ALT Alkaline Phosphatase Lactate Dehydrogenase Total Protein Albumin Ur Specific [place] Urine WBC (Auto) Crossmatch 11/29/16 11/29/16 11/29/16 01:04 12:53 12:53 WBC 28.0 H 24.7 H RBC 2.71 L 3.37 L Hgb 7.2 L 9.4 L Hct 23.7 L 28.1 L MCH 27 L RDW Plt Count Lymph % (Auto) Lymph # [place] # Seg Neutrophils % Seg Neuts % (Manual) 97.0 H Lymphocytes % (Manual) 1.0 L 1.0 L Seg Neutrophils # Seg Neutrophils # Man 26.3 H 24.0 H Lymphocytes # (Manual) 0.3 L 0.2 L PT INR ABG pH ABG pO2 ABG Base Excess VBG pH Carbon Dioxide Glucose Calcium Magnesium 6.60 H AST ALT Alkaline Phosphatase Lactate Dehydrogenase Total Protein Albumin Ur Specific [place] Urine WBC (Auto) Crossmatch 11/29/16 11/29/16 11/29/16 18:41 19:38 21:48 WBC 24.5 H 16.1 H RBC 3.26 L 2.23 L Hgb 9.0 L 6.1 L Hct 27.3 L 20.0 L D MCH 27 L RDW 15.7 H Plt Count 125 L 99 L Lymph % (Auto) 8.4 L Lymph # [place] # 1.0 H Seg Neutrophils % 85.3 H Seg Neuts % (Manual) Lymphocytes % (Manual) 5.0 L Seg Neutrophils # 13.7 H Seg Neutrophils # Man 22.5 H Lymphocytes # (Manual) PT INR ABG pH ABG pO2 ABG Base Excess VBG pH Carbon Dioxide Glucose Calcium Magnesium 5.30 H AST ALT Alkaline Phosphatase Lactate Dehydrogenase Total Protein Albumin Ur Specific [place] Urine WBC (Auto) Crossmatch 11/30/16 11/30/16 11/30/16 03:30 04:24 04:52 WBC 11.1 H 17.5 H RBC 1.88 L 2.64 L Hgb 5.1 L* 7.2 L Hct 17.1 L* 21.9 L MCH 27 L 27 L RDW 16.0 H Plt Count 82 L 113 L Lymph % (Auto) 7.9 L Lymph # 0.9 L [place] # Seg Neutrophils % 87.6 H Seg Neuts % (Manual) 94.0 H Lymphocytes % (Manual) 5.0 L Seg Neutrophils # 9.7 H Seg Neutrophils # Man 16.5 H Lymphocytes # (Manual) 0.9 L PT INR ABG pH ABG pO2 ABG Base Excess VBG pH Carbon Dioxide Glucose Calcium Magnesium AST ALT Alkaline Phosphatase Lactate Dehydrogenase Total Protein Albumin Ur Specific [place] Urine WBC (Auto) Crossmatch See Detail 11/30/16 11/30/16 17:50 20:10 WBC RBC Hgb Hct MCH RDW Plt Count Lymph % (Auto) Lymph # [place] # Seg Neutrophils % Seg Neuts % (Manual) Lymphocytes % (Manual) Seg Neutrophils # Seg Neutrophils # Man Lymphocytes # (Manual) PT INR ABG pH 7.331 L ABG pO2 144.4 H ABG Base Excess -2.6 L VBG pH Carbon Dioxide Glucose Calcium Magnesium AST ALT Alkaline Phosphatase Lactate Dehydrogenase Total Protein Albumin Ur Specific [place] Urine WBC (Auto) 12.0 H Crossmatch - Diagnostic Findings Chest x-ray: report reviewed, image reviewed Assessment and Plan - Patient Problems (1) Acute respiratory failure Current Visit: Yes Status: Acute Qualifiers: Respiratory failure complication: R (2) Preeclampsia Current Visit: Yes Status: Acute Qualifiers: Trimester: third trimester Qualified Code(s): O14.93 - Unspecified pre- eclampsia, third trimester (3) Delivery by emergency Current Visit: Yes Status: Acute (4) Hematoma of uterus Current Visit: Yes Status: Acute Qualifiers: Encounter type: initial encounter Qualified Code(s): S37.62XA - Contusion of uterus, initial encounter
--- NOTE | 2016-11-30 23:32 | Progress Note ---
Assessment and Plan Assessment and plan: Patient is a 27-year-old female admitted to the hospital at 7 weeks of due to nausea vomiting diarrhea and upper quadrants pain of the right abdominal for about 3 weeks was diagnosed with severe preeclampsia requiring C- section and delivery of the baby and also treatment with magnesium.. Subsequently the patient had a drop in hemoglobin requiring transfusion. Would imaging studies showing a 18 cm hematoma. The patient was also noted to have large pericardial effusion and moderate bilateral pleural effusion with atelectases. As of November 30 the patient had received 4 units packed red blood cells. The patient will subsequently transferred to the ICU due to hypotension. SIRS Severe preeclampsia status post Intrauterine hematoma Hypovolemic hypotension secondary to hemorrhage Acute respiratory failure Pleural effusion Leukocytosis question reactive versus infectious process. Plan: Continue supportive care. Patient was planned for uterine artery embolization today and subsequently D&C. Monitor his H&H Supportive care for respiratory status, nebs treatment. ID consult has been placed. Await input. Continue antibiotics at this time. Follow blood cultures Await echocardiogram DVT and GI prophylaxis Thank you for allowing us approximately careful palpation of the information become available more therapeutic or diagnostic measures many to implemented The high probability of a clinically significant, sudden or life threatening deterioration of the [hematology, circulatory] system(s) required my full and direct attention, intervention and personal management. The aggregate critical care time was [35] minutes. This time is in addition to time spent performing reported procedures but includes the following: [x] Data Review and interpretation [x] Patient assessment and monitoring of vital signs [x] Documentation [x] Medication orders and management History Interval history: Patient seen and examined today preparing to leave for uterine artery ablation of the time of my visit. Hospitalist Physical - Physical exam Narrative exam: VITAL SIGNS: Reviewed. GENERAL: The patient appeared well nourished and normally developed. Vital signs as documented. HEAD: No signs of head trauma. EYES: Pupils are equal. Extraocular motions intact. EARS: Hearing grossly intact. MOUTH: Oropharynx is normal. NECK: No adenopathy, no JVD. CHEST: Chest with clear breath sounds bilaterally. No wheezes, rales, or rhonchi. CARDIAC: Regular rate and rhythm. S1 and S2, without murmurs, gallops, or rubs. VASCULAR: No Edema. Peripheral pulses normal and equal in all extremities. ABDOMEN: Soft, surgical scar noted tender beside.. No sign of distention. No rebound or guarding, and no masses palpated. Bowel Sounds normal. MUSCULOSKELETAL: Good range of motion of all major joints. Extremities without clubbing, cyanosis or edema. NEUROLOGIC EXAM: Alert and oriented x 3. No focal sensory or strength deficits. Speech normal. Follows commands. PSYCHIATRIC: Mood normal. SKIN: No rash or lesions. - Constitutional Vitals: Temp Pulse Resp BP Pulse Ox 98.6 F 84 20 140/91 100 11/30/16 23:05 11/30/16 23:20 11/30/16 23:20 11/30/16 23:20 11/30/16 23:20 General appearance: Present: mild distress Results - Labs CBC & Chem 7: 12/01/16 08:50 12/01/16 08:26 Labs: Laboratory Last Values WBC 17.5 K/mm3 (4.5-11.0) H 11/30/16 04:52 RBC 2.64 M/mm3 (3.65-5.03) L 11/30/16 04:52 Hgb 7.2 gm/dl (10.1-14.3) L 11/30/16 04:52 Hct 21.9 % (30.3-42.9) L 11/30/16 04:52 MCV 83 fl (79-97) 11/30/16 04:52 MCH 27 pg (28-32) L 11/30/16 04:52 MCHC 33 % (30-34) 11/30/16 04:52 RDW 14.8 % (13.2-15.2) 11/30/16 04:52 Plt Count 113 K/mm3 (140-440) L 11/30/16 04:52 Lymph % (Auto) 7.9 % (13.4-35.0) L 11/30/16 03:30 [place] % (Auto) 4.4 % (0.0-7.3) 11/30/16 03:30 Eos % (Auto) 0.0 % (0.0-4.3) 11/30/16 03:30 Baso % (Auto) 0.1 % (0.0-1.8) 11/30/16 03:30 Lymph # 0.9 K/mm3 (1.2-5.4) L 11/30/16 03:30 [place] # 0.5 K/mm3 (0.0-0.8) 11/30/16 03:30 Eos # 0.0 K/mm3 (0.0-0.4) 11/30/16 03:30 Baso # 0.0 K/mm3 (0.0-0.1) 11/30/16 03:30 Add Manual Diff Complete 11/30/16 04:52 Total Counted 100 11/30/16 04:52 Seg Neutrophils % 87.6 % (40.0-70.0) H 11/30/16 03:30 Seg Neuts % (Manual) 94.0 % (40.0-70.0) H 11/30/16 04:52 Band Neutrophils % 0 % 11/30/16 04:52 Lymphocytes % (Manual) 5.0 % (13.4-35.0) L 11/30/16 04:52 Reactive Lymphs % (Man) 0 % 11/30/16 04:52 Monocytes % (Manual) 1.0 % (0.0-7.3) 11/30/16 04:52 Eosinophils % (Manual) 0 % (0.0-4.3) 11/30/16 04:52 Basophils % (Manual) 0 % (0.0-1.8) 11/30/16 04:52 Metamyelocytes % 0 % 11/30/16 04:52 Myelocytes % 0 % 11/30/16 04:52 Promyelocytes % 0 % 11/30/16 04:52 Blast Cells % 0 % 11/30/16 04:52 Nucleated RBC % Not Reportable 11/30/16 04:52 Seg Neutrophils # 9.7 K/mm3 (1.8-7.7) H 11/30/16 03:30 Seg Neutrophils # Man 16.5 K/mm3 (1.8-7.7) H 11/30/16 04:52 Band Neutrophils # 0.0 K/mm3 11/30/16 04:52 Lymphocytes # (Manual) 0.9 K/mm3 (1.2-5.4) L 11/30/16 04:52 Abs React Lymphs (Man) 0.0 K/mm3 11/30/16 04:52 Monocytes # (Manual) 0.2 K/mm3 (0.0-0.8) 11/30/16 04:52 Eosinophils # (Manual) 0.0 K/mm3 (0.0-0.4) 11/30/16 04:52 Basophils # (Manual) 0.0 K/mm3 (0.0-0.1) 11/30/16 04:52 Metamyelocytes # 0.0 K/mm3 11/30/16 04:52 Myelocytes # 0.0 K/mm3 11/30/16 04:52 Promyelocytes # 0.0 K/mm3 11/30/16 04:52 Blast Cells # 0.0 K/mm3 11/30/16 04:52 WBC Morphology Not Reportable 11/30/16 04:52 Hypersegmented Neuts Not Reportable 11/30/16 04:52 Hyposegmented Neuts Not Reportable 11/30/16 04:52 Hypogranular Neuts Not Reportable 11/30/16 04:52 Smudge Cells Not Reportable 11/30/16 04:52 Toxic Granulation Not Reportable 11/30/16 04:52 Toxic Vacuolation Not Reportable 11/30/16 04:52 Dohle Bodies Not Reportable 11/30/16 04:52 Pelger-Huet Anomaly Not Reportable 11/30/16 04:52 Jamarcus Rods Not Reportable 11/30/16 04:52 Platelet Estimate Appears decreased 11/30/16 04:52 Clumped Platelets Not Reportable 11/30/16 04:52 Plt Clumps, EDTA Not Reportable 11/30/16 04:52 Large Platelets Not Reportable 11/30/16 04:52 Giant Platelets Not Reportable 11/30/16 04:52 Platelet Satelliting Not Reportable 11/30/16 04:52 Plt Morphology Comment Not Reportable 11/30/16 04:52 RBC Morphology Not Reportable 11/30/16 04:52 Dimorphic RBCs Not Reportable 11/30/16 04:52 Polychromasia Not Reportable 11/30/16 04:52 Hypochromasia Not Reportable 11/30/16 04:52 Poikilocytosis Not Reportable 11/30/16 04:52 Anisocytosis Not Reportable 11/30/16 04:52 Microcytosis Not Reportable 11/30/16 04:52 Macrocytosis Not Reportable 11/30/16 04:52 Spherocytes Not Reportable 11/30/16 04:52 Pappenheimer Bodies Not Reportable 11/30/16 04:52 Sickle Cells Not Reportable 11/30/16 04:52 Target Cells Not Reportable 11/30/16 04:52 Tear Drop Cells Not Reportable 11/30/16 04:52 Ovalocytes Not Reportable 11/30/16 04:52 Helmet Cells Not Reportable 11/30/16 04:52 [place] Bodies Not Reportable 11/30/16 04:52 [place] Rings Not Reportable 11/30/16 04:52 Elena Cells Not Reportable 11/30/16 04:52 Bite Cells Not Reportable 11/30/16 04:52 Crenated Cell Not Reportable 11/30/16 04:52 Elliptocytes Not Reportable 11/30/16 04:52 Acanthocytes (Spur) Not Reportable 11/30/16 04:52 Rouleaux Not Reportable 11/30/16 04:52 Hemoglobin C Crystals Not Reportable 11/30/16 04:52 Schistocytes Not Reportable 11/30/16 04:52 Malaria parasites Not Reportable 11/30/16 04:52 Catrachito Bodies Not Reportable 11/30/16 04:52 Hem Pathologist Commnt No 11/30/16 04:52 PT 15.3 Sec. (12.2-14.9) H 11/28/16 18:40 INR 1.15 (0.87-1.13) H 11/28/16 18:40 APTT 27.2 Sec. (24.2-36.6) 11/28/16 18:40 ABG pH 7.331 pH Units (7.350-7.450) L 11/30/16 17:50 ABG pCO2 45.4 mm Hg 11/30/16 17:50 ABG pO2 144.4 mm Hg (80.0-90.0) H 11/30/16 17:50 ABG HCO3 23.5 mmol/L (20.0-26.0) 11/30/16 17:50 ABG O2 Saturation 98.7 % (95.0-99.0) 11/30/16 17:50 ABG O2 Content 17.0 (0.0-44) 11/30/16 17:50 ABG Base Excess -2.6 mmol/L (-2.0-3.0) L 11/30/16 17:50 ABG Hemoglobin 12.3 gm/dl (12.0-16.0) 11/30/16 17:50 ABG Carboxyhemoglobin 1.6 % (0.0-5.0) 11/30/16 17:50 ABG Methemoglobin 0.8 % (0.0-1.5) 11/30/16 17:50 VBG pH 7.297 (7.320-7.420) L 11/28/16 08:30 Oxyhemoglobin 96.3 % (95.0-99.0) 11/30/16 17:50 FiO2 100 % 11/30/16 17:50 Sodium 139 mmol/L (137-145) 11/28/16 18:40 Potassium 4.5 mmol/L (3.6-5.0) 11/28/16 18:40 Chloride 106.8 mmol/L (98-107) 11/28/16 18:40 Carbon Dioxide 19 mmol/L (22-30) L 11/28/16 18:40 Anion Gap 18 mmol/L 11/28/16 18:40 BUN 13 mg/dL (7-17) 11/28/16 18:40 Creatinine 1.1 mg/dL (0.7-1.2) D 11/28/16 18:40 Estimated GFR > 60 ml/min 11/28/16 18:40 BUN/Creatinine Ratio 12 % 11/28/16 18:40 Glucose 124 mg/dL (65-100) H 11/28/16 18:40 Uric Acid 6.4 mg/dL (3.5-7.6) 11/27/16 14:55 Calcium 6.4 mg/dL (8.4-10.2) L 11/28/16 18:40 Magnesium 5.30 mg/dL (1.7-2.3) H 11/29/16 19:38 Total Bilirubin 0.30 mg/dL (0.1-1.2) 11/28/16 18:40 AST 38 units/L (5-40) 11/28/16 18:40 ALT 35 units/L (7-56) 11/28/16 18:40 Alkaline Phosphatase 386 units/L (35-129) H 11/28/16 18:40 Lactate Dehydrogenase 353 units/L (91-180) H 11/27/16 14:55 Total Protein 3.4 g/dL (6.3-8.2) L 11/28/16 18:40 Albumin 1.7 g/dL (3.9-5) L 11/28/16 18:40 Albumin/Globulin Ratio 1.0 % 11/28/16 18:40 Urine Color Yellow (Yellow) 11/30/16 20:10 Urine Turbidity Clear (Clear) 11/30/16 20:10 Urine pH 6.0 (5.0-7.0) 11/30/16 20:10 Ur Specific [place] 1.016 (1.003-1.030) 11/30/16 20:10 Urine Protein 100 mg/dl mg/dL (Negative) 11/30/16 20:10 Urine Glucose (UA) Neg mg/dL (Negative) 11/30/16 20:10 Urine Ketones Neg mg/dL (Negative) 11/30/16 20:10 Urine Blood Sm (Negative) 11/30/16 20:10 Urine Nitrite Neg (Negative) 11/30/16 20:10 Urine Bilirubin Neg (Negative) 11/30/16 20:10 Urine Urobilinogen < 2.0 mg/dL (<2.0) 11/30/16 20:10 Ur Leukocyte Esterase Sm (Negative) 11/30/16 20:10 Urine WBC (Auto) 12.0 /HPF (0.0-6.0) H 11/30/16 20:10 Urine RBC (Auto) 9.0 /HPF (0.0-6.0) 11/30/16 20:10 U Epithel Cells (Auto) 2.0 /HPF (0-13.0) 11/27/16 10:40 Urine Bacteria (Auto) 1+ /HPF (Negative) 11/27/16 10:40 Hyaline Casts 2 /LPF 11/30/16 20:10 Granular Casts 1 /LPF 11/30/16 20:10 Urine Mucus Few /HPF 11/30/16 20:10 Urine Opiates Screen Presumptive negative 11/27/16 10:40 Urine Methadone Screen Presumptive negative 11/27/16 10:40 Ur Barbiturates Screen Presumptive negative 11/27/16 10:40 Ur Phencyclidine Scrn Presumptive negative 11/27/16 10:40 Ur Amphetamines Screen Presumptive negative 11/27/16 10:40 U Benzodiazepines Scrn Presumptive negative 11/27/16 10:40 Urine Cocaine Screen Presumptive negative 11/27/16 10:40 U Marijuana (THC) Screen Presumptive negative 11/27/16 10:40 Drugs of Abuse Note Disclamer 11/27/16 10:40 RPR Nonreactive (Nonreactive) 11/27/16 14:55 Blood Type AB POSITIVE 11/30/16 04:24 Antibody Screen TNR 11/30/16 04:24 PRAVIN Antibody Screen Negative 11/30/16 04:24 Crossmatch See Detail 11/30/16 04:24 - Imaging and Cardiology Chest x-ray: image reviewed ( mild pleural effusion noted)
[2016-12-01] MEDS: DIPRIVAN 10 MG/ML 1,000 MG/100 ML BOTTLE IV SCH ×2 (00:59→04:33)
[2016-12-01] MEDS: MORPHINE IV PRN ×2 (01:06→23:59)
[2016-12-01] MEDS: ZOSYN/NS 4.5GM/100ML 4.5 GM/100 ML VIAL IV SCH ×3 (01:17→15:10)
[2016-12-01] MEDS: APRESOLINE IV PRN ×2 (04:47→09:47)
--- NOTE | 2016-12-01 08:47 | XRay Report ---
AP CHEST: HISTORY: Followup respiratory failure The endotracheal tube has been retracted since 11/30/16 and now terminates 4 cm superior to the marry. Heart and mediastinal structures are within normal limits. Bibasilar atelectasis and small left pleural effusion are suspected. No pneumothorax. IMPRESSION: Adequate placement of the endotracheal tube. Bibasilar atelectasis and small left pleural effusion.
[2016-12-01] MEDS ORDERED: VANCOMYCIN/NS 1 GM/250 ML 1 GM/250 ML BAG IV SCH (09:00)
[2016-12-01 09:03] LABS: Anion Gap 14 mmol/L; BUN/Creatinine Ratio 12; Blood Urea Nitrogen 6 mg/dL (7-17); Carbon Dioxide 22 mmol/L (22-30); Chloride 108.2 mmol/L (98-107); Glucose 69 mg/dL (65-100); Potassium 4.2 mmol/L (3.6-5.0); Sodium 140 mmol/L (137-145)
[2016-12-01] MEDS: PEPCID IV SCH ×2 (09:06→22:32)
[2016-12-01 09:08] LABS: Hematocrit 33.2 % (30.3-42.9); Mean Corpuscular HGB Conc 33 % (30-34); Mean Corpuscular Hemoglobin 27 pg (28-32); Mean Corpuscular Volume 82 fl (79-97); Red Blood Count 4.04 M/mm3 (3.65-5.03); Red Cell Distribution Width 19.7 % (13.2-15.2)
[2016-12-01 09:24] LABS: Platelet Count 87 K/mm3 (140-440); White Blood Count 20.3 K/mm3 (4.5-11.0)
--- NOTE | 2016-12-01 09:42 | Consultation ---
History of Present Illness - Reason for Consult Consult date: 12/01/16 SIRS Requesting physician: NORA IGLESIAS - History of Present Illness 26 years old female with 37 weeks , admitted on 11/27/2016 due to N/V/ D and RUQ abdominal pain on/off for 3 weeks. She also has c/o 3 weeks of dry cough. Upon admission to the emergency room, initial temperature was 98.8, heart rate 71, blood pressure 140/94. Initial white count was 5.8, white hemoglobin 13.2 platelets 205. AST 60, ALT 57, CXR no consolidations. Abd US showed distended GB with exaggerated thickness, few echogenic changes. Bilateral pleural effusionsand minimal ascitis and bilateral pleural effusions. She was found to have Severe Preeclampsia and was started on magnesium. monitoring showed non reassuring tracing therefore she was taken t the OR for C section on 11/28. After OR she had large vaginal bleeding, her HG dropped and CT abd showed large intrauterine hematoma, large pericardial effusion and moderate bilateral pleural effusions with atelectasis. By 11/29 she started sking low grade fever, WBC went to 28K. Current Antimicrobials: Zosyn 12/01 Vancomycin 12/01 Previous Antimicrobials: gentamicin amp Microbiology: Blood cultures: 11/30 neg Urine cultures: pend Respiratory cultures: tracheal asp 11/30 pend Vaginal: 11/27 Group B strep Past History Past Medical History: No medical history Past Surgical History: Social history: no significant social history, , lives with family ( recently moved to [place] to have help with her baby. livving with mother ), alcohol abuse, prescription drug abuse. denies: smoking Medications and Allergies Allergies Allergy/AdvReac Type Severity Reaction Status Date / Time No Known Allergies Allergy Unverified 11/27/16 10:34 Home Medications Medication Instructions Recorded Confirmed Last Taken Type Vit-Fe Fumar-FA [ 1 tab PO QDAY 11/27/16 11/27/16 11/27/16 History Vitamin] Active Meds: Active Medications Acetaminophen (Tylenol) 650 mg PO Q6H PRN PRN Reason: Pain, Mild (1-3) Last Admin: 11/30/16 09:40 Dose: 650 mg Acetaminophen/Hydrocodone Bitart ([place] 5/325) 2 each PO Q6H PRN PRN Reason: Pain, Moderate (4-6) Last Admin: 11/29/16 21:15 Dose: 2 each Butorphanol Tartrate (Stadol) 2 mg IV Q2H PRN PRN Reason: Pain , Severe (7-10) Last Admin: 11/28/16 06:00 Dose: 2 mg Diphenhydramine HCl (Benadryl) 25 mg IV Q4H PRN PRN Reason: PRIOR TO BLOOD Last Admin: 11/30/16 20:33 Dose: 25 mg Famotidine (Pepcid) 20 mg IV BID RACHAEL Last Admin: 12/01/16 09:06 Dose: 20 mg Fentanyl (Sublimaze) 100 mcg IV Q2H PRN PRN Reason: Labor Pain Ferrous Sulfate (Feosol) 325 mg PO QDAY RACHAEL Last Admin: 11/30/16 10:29 Dose: Not Given Furosemide (Lasix) 40 mg IV ONCE ONE Stop: 12/01/16 10:01 Hydralazine HCl (Apresoline) 5 mg IV Q30MIN PRN PRN Reason: Hypertension Last Admin: 12/01/16 04:47 Dose: 5 mg Hydrocortisone Acetate (Anucort-Hc) 25 mg LA BID PRN PRN Reason: Hemorrhoids Hydrophilic Ointment (Vaseline Lip Therapy) 1 applic TP Q2HR PRN PRN Reason: Dry Lips Dextrose/Sodium Chloride (D5ns) 1,000 mls @ 125 mls/hr IV DIRECT RACHAEL Last Admin: 11/30/16 05:20 Dose: 125 mls/hr Sodium Chloride (Nacl 0.9% 1000 Ml) 1,000 mls @ 42 mls/hr IV DIRECT RACHAEL Last Admin: 11/30/16 18:50 Dose: 42 mls/hr Propofol (Diprivan 10 Mg/Ml) 1,000 mg in 100 mls @ 2.177 mls/hr IV TITR RACHAEL; 5 MCG/KG/MIN PRN Reason: Protocol Last Titration: 12/01/16 07:30 Dose: 0 mcg/kg/min, 0 mls/hr Piperacillin Sod/Tazobactam Sod (Zosyn/Ns 4.5gm/100ml) 4.5 gm in 100 mls @ 200 mls/hr IV Q8H RACHAEL PRN Reason: Protocol Last Admin: 12/01/16 08:53 Dose: 200 mls/hr Vancomycin HCl (Vancomycin/Ns 1 Gm/250 Ml) 1 gm in 250 mls @ 166.667 mls/hr IV Q8H RACHAEL Ibuprofen (Motrin) 800 mg PO Q6H PRN PRN Reason: Pain, Mild (1-3) Magnesium Citrate (Citrate Of Magnesia) 300 ml PO QDAY PRN PRN Reason: Bowel Movement Last Admin: 11/29/16 13:40 Dose: 300 ml Magnesium Hydroxide (Milk Of Magnesia) 30 ml PO QHS PRN PRN Reason: Constip Unrelieved By Senna Metoclopramide HCl (Reglan) 10 mg IV Q6H PRN PRN Reason: Nausea And Vomiting Last Admin: 11/28/16 07:53 Dose: 10 mg Mineral Oil (Mineral Oil) 30 ml PO QHS PRN PRN Reason: Constipation Morphine Sulfate (Morphine) 2 mg IV Q4H PRN PRN Reason: Pain, Moderate (4-6) Last Admin: 11/30/16 08:16 Dose: 2 mg Morphine Sulfate (Morphine) 4 mg IV Q4H PRN PRN Reason: Pain , Severe (7-10) Last Admin: 12/01/16 01:06 Dose: 4 mg Multi-Ingred Cream/Lotion/Oil/Oint (Artificial Tears Ophth Oint) 1 applic OU Q4HR PRN PRN Reason: Dry Eye(s) Multi-Ingredient Ointment (Lansinoh) 1 applic TP PRN PRN PRN Reason: dryness/cracking Multivitamins/Iron/Calcium ( Vitamin) 1 each PO QDAY [facility] Last Admin: 11/30/16 10:29 Dose: Not Given Naloxone HCl (Narcan 0.4 Mg/1 Ml) 0.1 mg IV Q2MIN PRN PRN Reason: Res Rate </= 8 or 02 SAT < 92% Ondansetron HCl (Zofran) 4 mg IV Q8H PRN PRN Reason: Nausea And Vomiting Last Admin: 11/30/16 03:00 Dose: 4 mg Oxycodone/Acetaminophen (Percocet 5/325) 1 tab PO Q6H PRN PRN Reason: Pain, Moderate (4-6) Last Admin: 11/29/16 14:35 Dose: 1 tab Promethazine HCl (Phenergan) 25 mg LA Q6H PRN PRN Reason: N/V IF NPO AND NO IV ACCESS Senna (Senokot) 17.2 mg PO QHS PRN PRN Reason: Constipation Simethicone (Mylicon) 80 mg PO Q6H PRN PRN Reason: Gas pain Last Admin: 11/29/16 21:40 Dose: 80 mg Sodium Chloride (Nacl 0.9% 500 Ml) 1 ml IV DIRECT RACHAEL Witch Azaila/Glycerin (Tucks Pad) 1 each TP PRN PRN PRN Reason: Hemorrhoids/cleansing/soothing Review of Systems All systems: negative (cough for 3 weeks before adsmission.) Physical Examination - Physical Exam Narrative exam: General appearance: sedated on the vent Eyes: anicteric sclerae, moist conjunctivae; no lid-lag; PERRLA HENT: Atraumatic; +ETT with no secretion Neck: Trachea midline; supple, no thyromegaly or lymphadenopathy Lungs: coarse BS [place] CV: RRR, no murmurs Abdomen: Soft, distended, + surgical wound covered by surg dressings no secretions Extremities: + [place] edema Skin: Normal temperature, turgor and texture; no rash, ulcers or subcutaneous nodules Psych: sedated. Neuro: sedated Lines: - Constitutional Vitals: Vital Signs Temp Pulse Resp BP Pulse Ox 99.0 F 86 15 159/97 100 12/01/16 08:00 12/01/16 08:17 12/01/16 08:17 12/01/16 08:17 12/01/16 08:17 Temperature -Last 24 Hours Temperature 99.0 F Temperature 97.5 F Temperature 99.4 F Temperature 98.7 F Temperature 98.6 F Temperature 98.6 F Temperature 97.6 F Temperature 98.4 F Temperature 98.4 F Temperature 97.6 F Temperature 97.6 F Temperature 0 F Temperature 99.2 F Temperature 98.9 F Temperature 99.1 F Temperature 98.9 F Temperature 98.4 F Temperature 100.4 F Results - Labs CBC & Chem 7: 12/01/16 08:50 12/01/16 08:26 Labs: Abnormal lab results 11/27/16 11/30/16 11/30/16 Range/Units 15:00 04:24 17:50 WBC (4.5-11.0) K/mm3 MCH (28-32) pg RDW (13.2-15.2) % Plt Count (140-440) K/mm3 ABG pH 7.331 L (7.350-7.450) pH Units ABG pO2 144.4 H (80.0-90.0) mm Hg ABG Base Excess -2.6 L (-2.0-3.0) mmol/L Chloride (98-107) mmol/L BUN (7-17) mg/dL Creatinine (0.7-1.2) mg/dL Calcium (8.4-10.2) mg/dL Urine WBC (Auto) (0.0-6.0) /HPF Crossmatch See Detail See Detail 11/30/16 12/01/16 12/01/16 Range/Units 20:10 08:26 08:50 WBC 20.3 H (4.5-11.0) K/mm3 MCH 27 L (28-32) pg RDW 19.7 H (13.2-15.2) % Plt Count 87 L (140-440) K/mm3 ABG pH (7.350-7.450) pH Units ABG pO2 (80.0-90.0) mm Hg ABG Base Excess (-2.0-3.0) mmol/L Chloride 108.2 H (98-107) mmol/L BUN 6 L (7-17) mg/dL Creatinine 0.5 L D (0.7-1.2) mg/dL Calcium 6.0 L (8.4-10.2) mg/dL Urine WBC (Auto) 12.0 H (0.0-6.0) /HPF Crossmatch Assessment and Plan Assessment: 1) SIRS: Not Present on admission, manifested by fever, tachycardia, leukocytosis. Etiology unclear - DDX. uterine hematoma/bleeding, pneumonia, UTI (unlikely since admission UA was not remarkable), GB, endometritis. 2) Uterine hematoma post C section -S/p 11/28 -S/p Uterine embolization 11/30 -S/p suction and D&c of multiple large clots on 11/30 3) Cough before admission-with nommal CXR ? bronchitis ? viral 4) Severe anemia 5) resp failure 6) Abnormal GB Plan: -follow-up endometrial cultures, blood cultures, respiratory cultures -obtain procalcitonin, C-reactive protein (CRP) -continue zosyn and vancomcyin for now -check HIDA scan when stable -RUQ US Thank you Dr Iglesias for your consultation, will follow up with you. Phoebe Gallegos MD Infectious Diseases Specialist [facility] ([facility] [phone] O [phone]
[2016-12-01] MEDS: VANCOMYCIN/NS 1 GM/250 ML 1 GM/250 ML BAG IV SCH ×2 (09:47→20:15)
[2016-12-01] MEDS ORDERED: LASIX IV ONE (10:00)
[2016-12-01] MEDS ORDERED: APRESOLINE IV PRN (10:58)
--- NOTE | 2016-12-01 12:46 | Progress Note ---
Assessment and Plan A/P POD#3 s/p Primary c/sec for NRFHT Severe Preeclampsia - been on Mag for 24 hrs d/c now Hypotension- resolved s/p 4 U PRBC and FFP h 7.2 pre-- 9.0- post blood transfusion --6.0-5.1--7.2 --11 s/p UFE and evacuation of hematoma regular diet continue vanc and zosyn defer to pulm and med and ID appreciate conmsults continue present mgt Subjective - Subjective Date of service: 12/01/16 Principal diagnosis: s/p c/sec, severe pree , hypotension , hypovolemic Interval history: This is a 26 yo at 37 weeks with partial care. Was last seen 4 weeks ago in [facility]. She rports no hx of HTN nor any medical problems in this . She comes to triage c/o nausea and vomintg and diarrhea for the last 3 weeks. She reports good fm no vb no leaking. She also denies tomas, bv, nor scotomata. She states that she associate with her nausea and vomiting right upper quadrant pain and some back pain. IOL for severe preeclampsia started on Mag. NRFHT and proceeded with primary c/ sec. difficult delivery secondary to wedge of baby head in pelvis. T incision with delivery of argenis breech . subsequently became hypotensive and hypovolemic. Patient transferred to ICU 2 U prbc and FFP given blood count stable for [address] showed a hematoma of [id number]. IR Dr. Carbajal consulted on case for possible UFE and plan for EUA and D and C. Patient reports: appetite normal, voiding normally, pain well controlled, bowel movement : doing well Objective - Vital Signs Latest vital signs: Vital Signs Temp Pulse Resp BP Pulse Ox 12/01/16 12:00 99.6 F 12/01/16 11:30 107 H 36 H 156/110 99 12/01/16 11:20 112 H 33 H 155/104 99 12/01/16 11:10 115 H 20 155/104 99 12/01/16 11:00 103 H 25 H 155/104 99 12/01/16 10:50 108 H 33 H 162/101 99 12/01/16 10:40 102 H 31 H 162/101 98 12/01/16 10:30 99 H 19 162/101 99 10/17/17 10:20 97 H 33 H 157/98 98 1717 10:10 88 20 157/98 98 12/01/17 10:01 96 17 10:00 85 17 157/98 99 17/17 09:50 87 20 161/103 100 1717 09:47 85 188/104 17/17 09:40 80 19 161/103 100 1717 09:30 84 16 161/103 100 17 09:20 92 H 20 168/100 100 17/17 09:10 85 18 168/100 100 17 09:00 85 16 168/100 100 1717 08:50 86 20 174/105 100 1717 08:40 103 H 35 H 159/97 100 1717 08:30 86 18 159/97 100 17 08:20 91 H 24 159/97 100 17 08:17 86 15 159/97 100 17 08:10 79 24 159/97 99 17 08:00 99.0 F 82 20 159/97 99 17 07:50 74 19 144/88 100 1717 07:40 79 25 H 144/88 100 17 07:30 80 23 144/88 99 17 07:27 77 136/87 99 17 07:20 77 22 136/87 95 17 07:10 81 20 136/87 96 17 07:00 80 20 136/87 99 17 06:50 83 20 128/89 100 17/17 06:40 76 20 128/89 99 1717 06:30 79 20 128/89 100 1717 06:20 82 20 133/87 100 1717 06:10 81 20 133/87 100 1717 06:00 81 21 133/87 100 1717 05:50 79 20 130/78 99 1717 05:48 97.5 F L 1717 05:40 83 20 130/78 100 17/17 05:30 83 21 130/78 100 1717 05:20 88 20 126/84 100 10/17/17 05:10 84 20 126/84 100 17 05:00 81 20 126/84 100 17 04:50 72 20 146/99 99 17 04:47 67 197/113 17 04:40 71 22 146/99 100 17 04:30 78 20 146/99 98 12/01/16 04:20 71 21 148/91 99 17 04:10 77 20 148/91 100 17 04:00 74 20 140/92 100 17 03:54 99.4 F 17 03:50 78 20 140/92 100 17 03:46 75 140/92 100 17 03:40 75 20 140/92 100 17 03:30 76 20 140/92 100 12/01/16 03:26 98.7 F 12/01/16 03:20 81 20 132/86 100 12/01/16 03:10 78 20 132/86 100 17 03:00 75 20 132/86 100 12/01/16 02:50 86 20 132/81 100 17 02:40 80 20 126/84 100 12/01/16 02:30 81 20 126/84 100 12/01/16 02:20 80 20 132/81 100 12/01/16 02:10 83 20 132/81 99 12/01/16 02:00 78 20 132/81 100 12/01/16 01:50 90 20 129/86 100 17 01:40 93 H 20 129/86 100 17 01:30 80 20 129/86 100 12/01/16 01:20 87 20 165/103 100 17 01:10 77 20 165/103 100 12/01/16 01:03 98.6 F 12/01/16 01:00 80 20 165/103 100 17 00:50 71 20 147/94 100 17 00:40 81 20 147/94 100 1717 00:30 77 20 147/94 100 17 00:20 75 20 156/105 100 17 00:10 70 20 156/105 100 12/01/16 00:00 81 21 156/105 100 11/30/16 23:50 79 20 138/93 100 11/30/16 23:40 77 20 138/93 100 11/30/16 23:38 78 170/98 100 11/30/16 23:30 81 20 138/93 100 11/30/16 23:28 84 20 140/91 100 11/30/16 23:20 84 20 140/91 100 11/30/16 23:10 83 20 140/91 100 11/30/16 23:05 98.6 F 11/30/16 23:00 84 20 140/91 100 11/30/16 22:50 91 H 20 133/83 100 11/30/16 22:40 82 20 139/89 100 11/30/16 22:30 88 20 139/89 100 11/30/16 22:20 88 20 133/83 100 11/30/16 22:10 89 20 133/83 100 11/30/16 22:00 95 H 20 133/83 100 11/30/16 21:50 97 H 20 134/80 100 11/30/16 21:40 102 H 20 134/80 100 11/30/16 21:30 104 H 20 134/80 99 11/30/16 21:20 109 H 20 142/84 99 11/30/16 21:10 107 H 21 142/84 99 11/30/16 21:00 108 H 20 142/84 100 11/30/16 20:50 99 H 20 147/101 100 11/30/16 20:40 114 H 24 147/101 100 11/30/16 20:30 118 H 27 H 147/101 100 11/30/16 20:20 103 H 24 145/95 100 11/30/16 20:10 110 H 26 H 145/95 100 11/30/16 20:00 113 H 18 145/95 100 11/30/16 19:50 133 H 25 H 140/90 100 11/30/16 19:40 118 H 29 H 140/90 100 11/30/16 19:31 97.6 F 11/30/16 19:30 112 H 26 H 159/123 100 11/30/16 19:20 115 H 21 142/113 100 11/30/16 19:10 121 H 28 H 142/113 100 11/30/16 19:00 83 19 140/90 100 11/30/16 18:59 85 171/100 11/30/16 18:50 107 H 25 H 163/107 100 11/30/16 18:40 78 20 143/92 100 11/30/16 18:30 94 H 20 142/113 100 11/30/16 18:20 76 20 143/92 100 11/30/16 18:11 98.4 F 106 H 26 H 143/92 100 11/30/16 18:00 98.4 F 81 20 130/92 100 11/30/16 17:56 75 143/92 100 11/30/16 17:51 80 17 130/92 100 11/30/16 17:41 90 16 130/92 89 11/30/16 17:30 81 20 130/92 100 11/30/16 17:26 91 11/30/16 17:15 80 21 150/91 99 11/30/16 17:00 87 19 147/91 99 11/30/16 16:45 100 H 21 129/99 100 11/30/16 16:32 105 H 168/93 100 11/30/16 16:30 92 H 18 136/86 100 11/30/16 16:25 94 H 19 138/76 97 11/30/16 16:20 92 H 20 140/92 93 11/30/16 16:16 97.6 F 102 H 21 143/97 94 Intake and Output 11/30/16 12/01/16 12/01/16 23:59 07:59 15:59 Intake Total 263.250 308.223 Output Total 1400 1200 Balance -1136.750 891.557 Intake: IV 263.250 308.223 DIPRIVAN 10 MG/ML 1,000 63.250 208.223 mg In 100 ml @ 5 MCG/KG/ MIN 2.177 mls/hr IV TITR RACHAEL Rx#:[id number] ZOSYN/NS 4.5GM/100ML 4.5 100 gm In 100 ml @ 200 mls/hr IV Q8H RACHAEL Rx#:[id number] Blood Product 0 0 Leukoreduced Red Blood 0 Cells Unit [id number] Leukoreduced Red Blood 0 0 Cells Unit [id number] Leukoreduced Red Blood 0 Cells Unit [id number] Output: Urine 1400 1200 Indwelling Catheter 1200 Other: Total, Output Amount 1200 Voiding Method Indwelling Catheter Indwelling Catheter Weight 83.5 kg Patient Weight 12/01/16 23:59 Weight 83.5 kg - Exam Breasts: Present: deferred Cardiovascular: Present: Regular rate, Normal S1 Lungs: Present: Clear to auscultation, Normal air movement Abdomen: Present: normal appearance, soft, normal bowel sounds. Absent: distention, tenderness Vulva: both: normal Uterus: Present: normal, firm. Absent: bogginess Extremities: Present: normal (scd on) Deep Tendon Reflex Grade: Normal +2 Incision: Present: normal, dry, intact - Labs Labs: Abnormal lab results 11/30/16 11/30/16 11/30/16 Range/Units 04:24 17:50 20:10 WBC (4.5-11.0) K/mm3 MCH (28-32) pg RDW (13.2-15.2) % Plt Count (140-440) K/mm3 ABG pH 7.331 L (7.350-7.450) pH Units ABG pO2 144.4 H (80.0-90.0) mm Hg ABG Base Excess -2.6 L (-2.0-3.0) mmol/L Chloride (98-107) mmol/L BUN (7-17) mg/dL Creatinine (0.7-1.2) mg/dL Calcium (8.4-10.2) mg/dL Urine WBC (Auto) 12.0 H (0.0-6.0) /HPF Crossmatch See Detail 12/01/16 12/01/16 Range/Units 08:26 08:50 WBC 20.3 H (4.5-11.0) K/mm3 MCH 27 L (28-32) pg RDW 19.7 H (13.2-15.2) % Plt Count 87 L (140-440) K/mm3 ABG pH (7.350-7.450) pH Units ABG pO2 (80.0-90.0) mm Hg ABG Base Excess (-2.0-3.0) mmol/L Chloride 108.2 H (98-107) mmol/L BUN 6 L (7-17) mg/dL Creatinine 0.5 L D (0.7-1.2) mg/dL Calcium 6.0 L (8.4-10.2) mg/dL Urine WBC (Auto) (0.0-6.0) /HPF Crossmatch
[2016-12-01] MEDS: PRENATAL VITAMIN PO SCH (15:00)
[2016-12-01] MEDS: FEOSOL PO SCH (15:00)
--- NOTE | 2016-12-01 17:26 | Progress Note ---
Assessment and Plan Assessment and plan: Patient is a 27-year-old female admitted to the hospital at 7 weeks of due to nausea vomiting diarrhea and upper quadrants pain of the right abdominal for about 3 weeks was diagnosed with severe preeclampsia requiring C- section and delivery of the baby and also treatment with magnesium.. Subsequently the patient had a drop in hemoglobin requiring transfusion. Would imaging studies showing a 18 cm hematoma. The patient was also noted to have large pericardial effusion and moderate bilateral pleural effusion with atelectases. As of November 30 the patient had received 4 units packed red blood cells. The patient will subsequently transferred to the ICU due to hypotension. SIRS Severe preeclampsia status post Intrauterine hematoma Hypovolemic hypotension secondary to hemorrhage Acute respiratory failure Pleural effusion Leukocytosis question reactive versus infectious process. Plan: Continue supportive care. Monitor his H&H, patient is status post 6 units packed red blood cells Status post D&C and uterine artery embolization Supportive care for respiratory status, nebs treatment. ID consult has been placed. Await input. Continue antibiotics at this time. Follow blood cultures Echocardiogram reviewed with cardiology peripherally. No evidence of pericardial effusion. Patient clinically improved and pulmonary and cardiac status appears stable. DVT and GI prophylaxis Thank you for allowing us approximately careful palpation of the information become available more therapeutic or diagnostic measures many to implemented The high probability of a clinically significant, sudden or life threatening deterioration of the [hematology, circulatory] system(s) required my full and direct attention, intervention and personal management. The aggregate critical care time was [35] minutes. This time is in addition to time spent performing reported procedures but includes the following: [x] Data Review and interpretation [x] Patient assessment and monitoring of vital signs [x] Documentation [x] Medication orders and management History Interval history: seen and examined, stable in no acute distress. Extubated. Mother said bedside Hospitalist Physical - Physical exam Narrative exam: VITAL SIGNS: Reviewed. GENERAL: The patient appeared well nourished and normally developed. Vital signs as documented. HEAD: No signs of head trauma. EYES: Pupils are equal. Extraocular motions intact. EARS: Hearing grossly intact. MOUTH: Oropharynx is normal. NECK: No adenopathy, no JVD. CHEST: Chest with clear breath sounds bilaterally. No wheezes, rales, or rhonchi. CARDIAC: Regular rate and rhythm. S1 and S2, without murmurs, gallops, or rubs. VASCULAR: No Edema. Peripheral pulses normal and equal in all extremities. ABDOMEN: Soft, surgical scar noted tender beside.. No sign of distention. No rebound or guarding, and no masses palpated. Bowel Sounds normal. MUSCULOSKELETAL: Good range of motion of all major joints. Extremities without clubbing, cyanosis or edema. NEUROLOGIC EXAM: Alert and oriented x 3. No focal sensory or strength deficits. Speech normal. Follows commands. PSYCHIATRIC: Mood normal. SKIN: No rash or lesions. - Constitutional Vitals: Temp Pulse Resp BP Pulse Ox 99.1 F 89 22 154/99 100 12/01/16 16:00 12/01/16 13:20 12/01/16 13:20 12/01/16 13:20 12/01/16 13:20 General appearance: Present: mild distress Results - Labs CBC & Chem 7: 12/01/16 08:50 12/01/16 08:26 Labs: Laboratory Last Values WBC 20.3 K/mm3 (4.5-11.0) H 12/01/16 08:50 RBC 4.04 M/mm3 (3.65-5.03) 12/01/16 08:50 Hgb 11.0 gm/dl (10.1-14.3) D 12/01/16 08:50 Hct 33.2 % (30.3-42.9) D 12/01/16 08:50 MCV 82 fl (79-97) 12/01/16 08:50 MCH 27 pg (28-32) L 12/01/16 08:50 MCHC 33 % (30-34) 12/01/16 08:50 RDW 19.7 % (13.2-15.2) H 12/01/16 08:50 Plt Count 87 K/mm3 (140-440) L 12/01/16 08:50 Lymph % (Auto) 7.9 % (13.4-35.0) L 11/30/16 03:30 [place] % (Auto) 4.4 % (0.0-7.3) 11/30/16 03:30 Eos % (Auto) 0.0 % (0.0-4.3) 11/30/16 03:30 Baso % (Auto) 0.1 % (0.0-1.8) 11/30/16 03:30 Lymph # 0.9 K/mm3 (1.2-5.4) L 11/30/16 03:30 [place] # 0.5 K/mm3 (0.0-0.8) 11/30/16 03:30 Eos # 0.0 K/mm3 (0.0-0.4) 11/30/16 03:30 Baso # 0.0 K/mm3 (0.0-0.1) 11/30/16 03:30 Add Manual Diff Complete 11/30/16 04:52 Total Counted 100 11/30/16 04:52 Seg Neutrophils % 87.6 % (40.0-70.0) H 11/30/16 03:30 Seg Neuts % (Manual) 94.0 % (40.0-70.0) H 11/30/16 04:52 Band Neutrophils % 0 % 11/30/16 04:52 Lymphocytes % (Manual) 5.0 % (13.4-35.0) L 11/30/16 04:52 Reactive Lymphs % (Man) 0 % 11/30/16 04:52 Monocytes % (Manual) 1.0 % (0.0-7.3) 11/30/16 04:52 Eosinophils % (Manual) 0 % (0.0-4.3) 11/30/16 04:52 Basophils % (Manual) 0 % (0.0-1.8) 11/30/16 04:52 Metamyelocytes % 0 % 11/30/16 04:52 Myelocytes % 0 % 11/30/16 04:52 Promyelocytes % 0 % 11/30/16 04:52 Blast Cells % 0 % 11/30/16 04:52 Nucleated RBC % Not Reportable 11/30/16 04:52 Seg Neutrophils # 9.7 K/mm3 (1.8-7.7) H 11/30/16 03:30 Seg Neutrophils # Man 16.5 K/mm3 (1.8-7.7) H 11/30/16 04:52 Band Neutrophils # 0.0 K/mm3 11/30/16 04:52 Lymphocytes # (Manual) 0.9 K/mm3 (1.2-5.4) L 11/30/16 04:52 Abs React Lymphs (Man) 0.0 K/mm3 11/30/16 04:52 Monocytes # (Manual) 0.2 K/mm3 (0.0-0.8) 11/30/16 04:52 Eosinophils # (Manual) 0.0 K/mm3 (0.0-0.4) 11/30/16 04:52 Basophils # (Manual) 0.0 K/mm3 (0.0-0.1) 11/30/16 04:52 Metamyelocytes # 0.0 K/mm3 11/30/16 04:52 Myelocytes # 0.0 K/mm3 11/30/16 04:52 Promyelocytes # 0.0 K/mm3 11/30/16 04:52 Blast Cells # 0.0 K/mm3 11/30/16 04:52 WBC Morphology Not Reportable 11/30/16 04:52 Hypersegmented Neuts Not Reportable 11/30/16 04:52 Hyposegmented Neuts Not Reportable 11/30/16 04:52 Hypogranular Neuts Not Reportable 11/30/16 04:52 Smudge Cells Not Reportable 11/30/16 04:52 Toxic Granulation Not Reportable 11/30/16 04:52 Toxic Vacuolation Not Reportable 11/30/16 04:52 Dohle Bodies Not Reportable 11/30/16 04:52 Pelger-Huet Anomaly Not Reportable 11/30/16 04:52 Jamarcus Rods Not Reportable 11/30/16 04:52 Platelet Estimate Appears decreased 11/30/16 04:52 Clumped Platelets Not Reportable 11/30/16 04:52 Plt Clumps, EDTA Not Reportable 11/30/16 04:52 Large Platelets Not Reportable 11/30/16 04:52 Giant Platelets Not Reportable 11/30/16 04:52 Platelet Satelliting Not Reportable 11/30/16 04:52 Plt Morphology Comment Not Reportable 11/30/16 04:52 RBC Morphology Not Reportable 11/30/16 04:52 Dimorphic RBCs Not Reportable 11/30/16 04:52 Polychromasia Not Reportable 11/30/16 04:52 Hypochromasia Not Reportable 11/30/16 04:52 Poikilocytosis Not Reportable 11/30/16 04:52 Anisocytosis Not Reportable 11/30/16 04:52 Microcytosis Not Reportable 11/30/16 04:52 Macrocytosis Not Reportable 11/30/16 04:52 Spherocytes Not Reportable 11/30/16 04:52 Pappenheimer Bodies Not Reportable 11/30/16 04:52 Sickle Cells Not Reportable 11/30/16 04:52 Target Cells Not Reportable 11/30/16 04:52 Tear Drop Cells Not Reportable 11/30/16 04:52 Ovalocytes Not Reportable 11/30/16 04:52 Helmet Cells Not Reportable 11/30/16 04:52 [place] Bodies Not Reportable 11/30/16 04:52 [place] Rings Not Reportable 11/30/16 04:52 [place] Cells Not Reportable 11/30/16 04:52 Bite Cells Not Reportable 11/30/16 04:52 Crenated Cell Not Reportable 11/30/16 04:52 Elliptocytes Not Reportable 11/30/16 04:52 Acanthocytes (Spur) Not Reportable 11/30/16 04:52 Rouleaux Not Reportable 11/30/16 04:52 Hemoglobin C Crystals Not Reportable 11/30/16 04:52 Schistocytes Not Reportable 11/30/16 04:52 Malaria parasites Not Reportable 11/30/16 04:52 Catrachito Bodies Not Reportable 11/30/16 04:52 Hem Pathologist Commnt No 11/30/16 04:52 PT 15.3 Sec. (12.2-14.9) H 11/28/16 18:40 INR 1.15 (0.87-1.13) H 11/28/16 18:40 APTT 27.2 Sec. (24.2-36.6) 11/28/16 18:40 ABG pH 7.331 pH Units (7.350-7.450) L 11/30/16 17:50 ABG pCO2 45.4 mm Hg 11/30/16 17:50 ABG pO2 144.4 mm Hg (80.0-90.0) H 11/30/16 17:50 ABG HCO3 23.5 mmol/L (20.0-26.0) 11/30/16 17:50 ABG O2 Saturation 98.7 % (95.0-99.0) 11/30/16 17:50 ABG O2 Content 17.0 (0.0-44) 11/30/16 17:50 ABG Base Excess -2.6 mmol/L (-2.0-3.0) L 11/30/16 17:50 ABG Hemoglobin 12.3 gm/dl (12.0-16.0) 11/30/16 17:50 ABG Carboxyhemoglobin 1.6 % (0.0-5.0) 11/30/16 17:50 ABG Methemoglobin 0.8 % (0.0-1.5) 11/30/16 17:50 VBG pH 7.297 (7.320-7.420) L 11/28/16 08:30 Oxyhemoglobin 96.3 % (95.0-99.0) 11/30/16 17:50 FiO2 100 % 11/30/16 17:50 Sodium 140 mmol/L (137-145) 12/01/16 08:26 Potassium 4.2 mmol/L (3.6-5.0) 12/01/16 08:26 Chloride 108.2 mmol/L (98-107) H 12/01/16 08:26 Carbon Dioxide 22 mmol/L (22-30) 12/01/16 08:26 Anion Gap 14 mmol/L 12/01/16 08:26 BUN 6 mg/dL (7-17) L 12/01/16 08:26 Creatinine 0.5 mg/dL (0.7-1.2) L D 12/01/16 08:26 Estimated GFR > 60 ml/min 12/01/16 08:26 BUN/Creatinine Ratio 12 % 12/01/16 08:26 Glucose 69 mg/dL (65-100) 12/01/16 08:26 Uric Acid 6.4 mg/dL (3.5-7.6) 11/27/16 14:55 Calcium 6.0 mg/dL (8.4-10.2) L 12/01/16 08:26 Magnesium 5.30 mg/dL (1.7-2.3) H 11/29/16 19:38 Total Bilirubin 0.30 mg/dL (0.1-1.2) 11/28/16 18:40 AST 38 units/L (5-40) 11/28/16 18:40 ALT 35 units/L (7-56) 11/28/16 18:40 Alkaline Phosphatase 386 units/L (35-129) H 11/28/16 18:40 Lactate Dehydrogenase 353 units/L (91-180) H 11/27/16 14:55 C-Reactive Protein 11.80 mg/dL (0.00-1.30) H 12/01/16 08:26 Total Protein 3.4 g/dL (6.3-8.2) L 11/28/16 18:40 Albumin 1.7 g/dL (3.9-5) L 11/28/16 18:40 Albumin/Globulin Ratio 1.0 % 11/28/16 18:40 Urine Color Yellow (Yellow) 11/30/16 20:10 Urine Turbidity Clear (Clear) 11/30/16 20:10 Urine pH 6.0 (5.0-7.0) 11/30/16 20:10 Ur Specific [place] 1.016 (1.003-1.030) 11/30/16 20:10 Urine Protein 100 mg/dl mg/dL (Negative) 11/30/16 20:10 Urine Glucose (UA) Neg mg/dL (Negative) 11/30/16 20:10 Urine Ketones Neg mg/dL (Negative) 11/30/16 20:10 Urine Blood Sm (Negative) 11/30/16 20:10 Urine Nitrite Neg (Negative) 11/30/16 20:10 Urine Bilirubin Neg (Negative) 11/30/16 20:10 Urine Urobilinogen < 2.0 mg/dL (<2.0) 11/30/16 20:10 Ur Leukocyte Esterase Sm (Negative) 11/30/16 20:10 Urine WBC (Auto) 12.0 /HPF (0.0-6.0) H 11/30/16 20:10 Urine RBC (Auto) 9.0 /HPF (0.0-6.0) 11/30/16 20:10 U Epithel Cells (Auto) 2.0 /HPF (0-13.0) 11/27/16 10:40 Urine Bacteria (Auto) 1+ /HPF (Negative) 11/27/16 10:40 Hyaline Casts 2 /LPF 11/30/16 20:10 Granular Casts 1 /LPF 11/30/16 20:10 Urine Mucus Few /HPF 11/30/16 20:10 Urine Opiates Screen Presumptive negative 11/27/16 10:40 Urine Methadone Screen Presumptive negative 11/27/16 10:40 Ur Barbiturates Screen Presumptive negative 11/27/16 10:40 Ur Phencyclidine Scrn Presumptive negative 11/27/16 10:40 Ur Amphetamines Screen Presumptive negative 11/27/16 10:40 U Benzodiazepines Scrn Presumptive negative 11/27/16 10:40 Urine Cocaine Screen Presumptive negative 11/27/16 10:40 U Marijuana (THC) Screen Presumptive negative 11/27/16 10:40 Drugs of Abuse Note Disclamer 11/27/16 10:40 RPR Nonreactive (Nonreactive) 11/27/16 14:55 Blood Type AB POSITIVE 11/30/16 04:24 Antibody Screen TNR 11/30/16 04:24 PRAVIN Antibody Screen Negative 11/30/16 04:24 Crossmatch See Detail 11/30/16 04:24
[2016-12-01] MEDS ORDERED: AMBIEN PO PRN (22:39)
[2016-12-01] MEDS ORDERED: AMBIEN PO ONE (23:01)
[2016-12-02] MEDS: ZOSYN/NS 4.5GM/100ML 4.5 GM/100 ML VIAL IV SCH ×3 (00:01→16:37)
[2016-12-02] MEDS: VANCOMYCIN/NS 1 GM/250 ML 1 GM/250 ML BAG IV SCH (06:21)
--- NOTE | 2016-12-02 07:06 | Progress Note ---
Assessment and Plan Assessment and plan: Patient is a 27-year-old female admitted to the hospital at 7 weeks of due to nausea vomiting diarrhea and upper quadrants pain of the right abdominal for about 3 weeks was diagnosed with severe preeclampsia requiring C- section and delivery of the baby and also treatment with magnesium.. Subsequently the patient had a drop in hemoglobin requiring transfusion. Would imaging studies showing a 18 cm hematoma. The patient was also noted to have large pericardial effusion and moderate bilateral pleural effusion with atelectases. As of November 30 the patient had received 4 units packed red blood cells. The patient will subsequently transferred to the ICU due to hypotension. SIRS Severe preeclampsia status post Cough. Intrauterine hematoma Hypovolemic hypotension secondary to hemorrhage Acute respiratory failure Pleural effusion Leukocytosis question reactive versus infectious process. Plan: Continue supportive care. Monitor his H&H, patient is status post 6 units packed red blood cells Status post D&C and uterine artery embolization Supportive care for respiratory status, nebs treatment. ID consult has been placed. input noted. Continue antibiotics at this time. Follow blood cultures Echocardiogram reviewed with cardiology peripherally. No evidence of pericardial effusion. Patient continues to clinically improved and pulmonary and cardiac status appears stable. DVT and GI prophylaxis Thank you for allowing us approximately careful palpation of the information become available more therapeutic or diagnostic measures many to implemented Transfer to Mother baby. History Interval history: seen and examined, stable in no acute distress. tolerating diet, abdominal pain with cough, 3/10. cough non productive. Hospitalist Physical - Physical exam Narrative exam: VITAL SIGNS: Reviewed. GENERAL: The patient appeared well nourished and normally developed. Vital signs as documented. HEAD: No signs of head trauma. EYES: Pupils are equal. Extraocular motions intact. EARS: Hearing grossly intact. MOUTH: Oropharynx is normal. NECK: No adenopathy, no JVD. CHEST: Chest with clear breath sounds bilaterally. No wheezes, rales, or rhonchi. CARDIAC: Regular rate and rhythm. S1 and S2, without murmurs, gallops, or rubs. VASCULAR: No Edema. Peripheral pulses normal and equal in all extremities. ABDOMEN: Soft, surgical scar noted tender beside.. No sign of distention. No rebound or guarding, and no masses palpated. Bowel Sounds normal. MUSCULOSKELETAL: Good range of motion of all major joints. Extremities without clubbing, cyanosis or edema. NEUROLOGIC EXAM: Alert and oriented x 3. No focal sensory or strength deficits. Speech normal. Follows commands. PSYCHIATRIC: Mood normal. SKIN: No rash or lesions. - Constitutional Vitals: Temp Pulse Resp BP Pulse Ox 98.1 F 81 27 H 149/102 99 12/02/16 03:52 12/02/16 06:10 12/02/16 06:10 12/02/16 06:10 12/02/16 06:10 General appearance: Present: mild distress Results - Labs CBC & Chem 7: 12/03/16 00:25 12/01/16 08:26 Labs: Laboratory Last Values WBC 20.3 K/mm3 (4.5-11.0) H 12/01/16 08:50 RBC 4.04 M/mm3 (3.65-5.03) 12/01/16 08:50 Hgb 11.0 gm/dl (10.1-14.3) D 12/01/16 08:50 Hct 33.2 % (30.3-42.9) D 12/01/16 08:50 MCV 82 fl (79-97) 12/01/16 08:50 MCH 27 pg (28-32) L 12/01/16 08:50 MCHC 33 % (30-34) 12/01/16 08:50 RDW 19.7 % (13.2-15.2) H 12/01/16 08:50 Plt Count 87 K/mm3 (140-440) L 12/01/16 08:50 Lymph % (Auto) 7.9 % (13.4-35.0) L 11/30/16 03:30 [place] % (Auto) 4.4 % (0.0-7.3) 11/30/16 03:30 Eos % (Auto) 0.0 % (0.0-4.3) 11/30/16 03:30 Baso % (Auto) 0.1 % (0.0-1.8) 11/30/16 03:30 Lymph # 0.9 K/mm3 (1.2-5.4) L 11/30/16 03:30 [place] # 0.5 K/mm3 (0.0-0.8) 11/30/16 03:30 Eos # 0.0 K/mm3 (0.0-0.4) 11/30/16 03:30 Baso # 0.0 K/mm3 (0.0-0.1) 11/30/16 03:30 Add Manual Diff Complete 11/30/16 04:52 Total Counted 100 11/30/16 04:52 Seg Neutrophils % 87.6 % (40.0-70.0) H 11/30/16 03:30 Seg Neuts % (Manual) 94.0 % (40.0-70.0) H 11/30/16 04:52 Band Neutrophils % 0 % 11/30/16 04:52 Lymphocytes % (Manual) 5.0 % (13.4-35.0) L 11/30/16 04:52 Reactive Lymphs % (Man) 0 % 11/30/16 04:52 Monocytes % (Manual) 1.0 % (0.0-7.3) 11/30/16 04:52 Eosinophils % (Manual) 0 % (0.0-4.3) 11/30/16 04:52 Basophils % (Manual) 0 % (0.0-1.8) 11/30/16 04:52 Metamyelocytes % 0 % 11/30/16 04:52 Myelocytes % 0 % 11/30/16 04:52 Promyelocytes % 0 % 11/30/16 04:52 Blast Cells % 0 % 11/30/16 04:52 Nucleated RBC % Not Reportable 11/30/16 04:52 Seg Neutrophils # 9.7 K/mm3 (1.8-7.7) H 11/30/16 03:30 Seg Neutrophils # Man 16.5 K/mm3 (1.8-7.7) H 11/30/16 04:52 Band Neutrophils # 0.0 K/mm3 11/30/16 04:52 Lymphocytes # (Manual) 0.9 K/mm3 (1.2-5.4) L 11/30/16 04:52 Abs React Lymphs (Man) 0.0 K/mm3 11/30/16 04:52 Monocytes # (Manual) 0.2 K/mm3 (0.0-0.8) 11/30/16 04:52 Eosinophils # (Manual) 0.0 K/mm3 (0.0-0.4) 11/30/16 04:52 Basophils # (Manual) 0.0 K/mm3 (0.0-0.1) 11/30/16 04:52 Metamyelocytes # 0.0 K/mm3 11/30/16 04:52 Myelocytes # 0.0 K/mm3 11/30/16 04:52 Promyelocytes # 0.0 K/mm3 11/30/16 04:52 Blast Cells # 0.0 K/mm3 11/30/16 04:52 WBC Morphology Not Reportable 11/30/16 04:52 Hypersegmented Neuts Not Reportable 11/30/16 04:52 Hyposegmented Neuts Not Reportable 11/30/16 04:52 Hypogranular Neuts Not Reportable 11/30/16 04:52 Smudge Cells Not Reportable 11/30/16 04:52 Toxic Granulation Not Reportable 11/30/16 04:52 Toxic Vacuolation Not Reportable 11/30/16 04:52 Dohle Bodies Not Reportable 11/30/16 04:52 Pelger-Huet Anomaly Not Reportable 11/30/16 04:52 Jamarcus Rods Not Reportable 11/30/16 04:52 Platelet Estimate Appears decreased 11/30/16 04:52 Clumped Platelets Not Reportable 11/30/16 04:52 Plt Clumps, EDTA Not Reportable 11/30/16 04:52 Large Platelets Not Reportable 11/30/16 04:52 Giant Platelets Not Reportable 11/30/16 04:52 Platelet Satelliting Not Reportable 11/30/16 04:52 Plt Morphology Comment Not Reportable 11/30/16 04:52 RBC Morphology Not Reportable 11/30/16 04:52 Dimorphic RBCs Not Reportable 11/30/16 04:52 Polychromasia Not Reportable 11/30/16 04:52 Hypochromasia Not Reportable 11/30/16 04:52 Poikilocytosis Not Reportable 11/30/16 04:52 Anisocytosis Not Reportable 11/30/16 04:52 Microcytosis Not Reportable 11/30/16 04:52 Macrocytosis Not Reportable 11/30/16 04:52 Spherocytes Not Reportable 11/30/16 04:52 Pappenheimer Bodies Not Reportable 11/30/16 04:52 Sickle Cells Not Reportable 11/30/16 04:52 Target Cells Not Reportable 11/30/16 04:52 Tear Drop Cells Not Reportable 11/30/16 04:52 Ovalocytes Not Reportable 11/30/16 04:52 Helmet Cells Not Reportable 11/30/16 04:52 Guerrero-Nettie Bodies Not Reportable 11/30/16 04:52 [place] Rings Not Reportable 11/30/16 04:52 [place] Cells Not Reportable 11/30/16 04:52 Bite Cells Not Reportable 11/30/16 04:52 Crenated Cell Not Reportable 11/30/16 04:52 Elliptocytes Not Reportable 11/30/16 04:52 Acanthocytes (Spur) Not Reportable 11/30/16 04:52 Rouleaux Not Reportable 11/30/16 04:52 Hemoglobin C Crystals Not Reportable 11/30/16 04:52 Schistocytes Not Reportable 11/30/16 04:52 Malaria parasites Not Reportable 11/30/16 04:52 Catrachito Bodies Not Reportable 11/30/16 04:52 Hem Pathologist Commnt No 11/30/16 04:52 PT 15.3 Sec. (12.2-14.9) H 11/28/16 18:40 INR 1.15 (0.87-1.13) H 11/28/16 18:40 APTT 27.2 Sec. (24.2-36.6) 11/28/16 18:40 ABG pH 7.331 pH Units (7.350-7.450) L 11/30/16 17:50 ABG pCO2 45.4 mm Hg 11/30/16 17:50 ABG pO2 144.4 mm Hg (80.0-90.0) H 11/30/16 17:50 ABG HCO3 23.5 mmol/L (20.0-26.0) 11/30/16 17:50 ABG O2 Saturation 98.7 % (95.0-99.0) 11/30/16 17:50 ABG O2 Content 17.0 (0.0-44) 11/30/16 17:50 ABG Base Excess -2.6 mmol/L (-2.0-3.0) L 11/30/16 17:50 ABG Hemoglobin 12.3 gm/dl (12.0-16.0) 11/30/16 17:50 ABG Carboxyhemoglobin 1.6 % (0.0-5.0) 11/30/16 17:50 ABG Methemoglobin 0.8 % (0.0-1.5) 11/30/16 17:50 VBG pH 7.297 (7.320-7.420) L 11/28/16 08:30 Oxyhemoglobin 96.3 % (95.0-99.0) 11/30/16 17:50 FiO2 100 % 11/30/16 17:50 Sodium 140 mmol/L (137-145) 12/01/16 08:26 Potassium 4.2 mmol/L (3.6-5.0) 12/01/16 08:26 Chloride 108.2 mmol/L (98-107) H 12/01/16 08:26 Carbon Dioxide 22 mmol/L (22-30) 12/01/16 08:26 Anion Gap 14 mmol/L 12/01/16 08:26 BUN 6 mg/dL (7-17) L 12/01/16 08:26 Creatinine 0.5 mg/dL (0.7-1.2) L D 12/01/16 08:26 Estimated GFR > 60 ml/min 12/01/16 08:26 BUN/Creatinine Ratio 12 % 12/01/16 08:26 Glucose 69 mg/dL (65-100) 12/01/16 08:26 Uric Acid 6.4 mg/dL (3.5-7.6) 11/27/16 14:55 Calcium 6.0 mg/dL (8.4-10.2) L 12/01/16 08:26 Magnesium 5.30 mg/dL (1.7-2.3) H 11/29/16 19:38 Total Bilirubin 0.30 mg/dL (0.1-1.2) 11/28/16 18:40 AST 38 units/L (5-40) 11/28/16 18:40 ALT 35 units/L (7-56) 11/28/16 18:40 Alkaline Phosphatase 386 units/L (35-129) H 11/28/16 18:40 Lactate Dehydrogenase 353 units/L (91-180) H 11/27/16 14:55 C-Reactive Protein 11.80 mg/dL (0.00-1.30) H 12/01/16 08:26 Total Protein 3.4 g/dL (6.3-8.2) L 11/28/16 18:40 Albumin 1.7 g/dL (3.9-5) L 11/28/16 18:40 Albumin/Globulin Ratio 1.0 % 11/28/16 18:40 Urine Color Yellow (Yellow) 11/30/16 20:10 Urine Turbidity Clear (Clear) 11/30/16 20:10 Urine pH 6.0 (5.0-7.0) 11/30/16 20:10 Ur Specific [place] 1.016 (1.003-1.030) 11/30/16 20:10 Urine Protein 100 mg/dl mg/dL (Negative) 11/30/16 20:10 Urine Glucose (UA) Neg mg/dL (Negative) 11/30/16 20:10 Urine Ketones Neg mg/dL (Negative) 11/30/16 20:10 Urine Blood Sm (Negative) 11/30/16 20:10 Urine Nitrite Neg (Negative) 11/30/16 20:10 Urine Bilirubin Neg (Negative) 11/30/16 20:10 Urine Urobilinogen < 2.0 mg/dL (<2.0) 11/30/16 20:10 Ur Leukocyte Esterase Sm (Negative) 11/30/16 20:10 Urine WBC (Auto) 12.0 /HPF (0.0-6.0) H 11/30/16 20:10 Urine RBC (Auto) 9.0 /HPF (0.0-6.0) 11/30/16 20:10 U Epithel Cells (Auto) 2.0 /HPF (0-13.0) 11/27/16 10:40 Urine Bacteria (Auto) 1+ /HPF (Negative) 11/27/16 10:40 Hyaline Casts 2 /LPF 11/30/16 20:10 Granular Casts 1 /LPF 11/30/16 20:10 Urine Mucus Few /HPF 11/30/16 20:10 Urine Opiates Screen Presumptive negative 11/27/16 10:40 Urine Methadone Screen Presumptive negative 11/27/16 10:40 Ur Barbiturates Screen Presumptive negative 11/27/16 10:40 Ur Phencyclidine Scrn Presumptive negative 11/27/16 10:40 Ur Amphetamines Screen Presumptive negative 11/27/16 10:40 U Benzodiazepines Scrn Presumptive negative 11/27/16 10:40 Urine Cocaine Screen Presumptive negative 11/27/16 10:40 U Marijuana (THC) Screen Presumptive negative 11/27/16 10:40 Drugs of Abuse Note Disclamer 11/27/16 10:40 RPR Nonreactive (Nonreactive) 11/27/16 14:55 Blood Type AB POSITIVE 11/30/16 04:24 Antibody Screen TNR 11/30/16 04:24 PRAVIN Antibody Screen Negative 11/30/16 04:24 Crossmatch See Detail 11/30/16 04:24
--- NOTE | 2016-12-02 07:28 | XRay Report ---
AP CHEST: HISTORY: Followup respiratory failure The patient has been extubated. Heart size is stable at the upper limits of normal. There is decreased right lower lobe atelectasis and increased left lower lobe atelectasis. Small left pleural effusion is unchanged. IMPRESSION: Minor changes since yesterday's exam as described. No acute cardiopulmonary process. Extubated patient.
--- NOTE | 2016-12-02 08:14 | Ultrasound Report ---
RIGHT UPPER QUADRANT ULTRASOUND: HISTORY: Evaluate for cholecystitis. Technique: Transabdominal ultrasound imaging with Doppler interrogation. FINDINGS: Compared to the right upper quadrant ultrasound performed 11/27/[address] abdomen pelvis performed 11/28/16. The gallbladder is partially contracted. Previously described gallbladder wall densities are unchanged and may represent small polyps or adherent gallstones. No evidence for pericholecystic fluid. The CBD measures 2 mm. The liver parenchyma is slightly heterogeneous suggesting mild fatty infiltration. No focal liver mass or surface nodularity. The right kidney is echogenic and is unchanged. No evidence for focal renal lesion or hydronephrosis. The aorta is normal caliber. The visualized pancreas is unremarkable. Trace ascites in Morison's pouch has nearly resolved. IMPRESSION: No convincing findings of acute cholecystitis. The gallbladder is contracted and contains a few internal densities which could represent polyps or tiny stones. I suspect these represent tiny gallstones. Mild fatty infiltration of the liver. Echogenic right kidney consistent with nonspecific renal parenchymal disease. Trace ascites.
--- NOTE | 2016-12-02 09:01 | Progress Note ---
Assessment and Plan A/P POD#4 s/p Primary c/sec for NRFHT, UFE, Dilatiaton and currettage hemoglobin stable 11 repeat CBC s/p UFE and evacuation of hematoma regular diet continue vanc and zosyn if ICU attending agrees may consider transfer to [facility] routine PO care Subjective - Subjective Date of service: 12/02/16 Principal diagnosis: s/p c/sec, severe pree , hypotension , hypovolemic Interval history: This is a 26 yo at 37 weeks with partial care. Was last seen 4 weeks ago in [facility]. She rports no hx of HTN nor any medical problems in this . She comes to triage c/o nausea and vomintg and diarrhea for the last 3 weeks. She reports good fm no vb no leaking. She also denies tomas, bv, nor scotomata. She states that she associate with her nausea and vomiting right upper quadrant pain and some back pain. IOL for severe preeclampsia started on Mag. NRFHT and proceeded with primary c/ sec. difficult delivery secondary to wedge of baby head in pelvis. T incision with delivery of argenis breech . subsequently became hypotensive and hypovolemic. Patient transferred to ICU 2 U prbc and FFP given blood count stable for [address] showed a hematoma of [id number]. IR Dr. Carbajal consulted on case for possible UFE and plan for EUA and D and C. Patient reports: appetite normal, voiding normally, pain well controlled, flatus , ambulating normally : doing well (d/c home) Objective - Vital Signs Latest vital signs: Vital Signs Temp Pulse Resp BP Pulse Ox 12/02/16 08:30 92 H 27 H 139/84 100 12/02/16 08:00 98.4 F 84 22 146/94 100 12/02/16 07:55 84 164/103 12/02/16 07:41 96 12/02/16 07:30 76 20 164/103 100 12/02/16 07:00 74 22 154/98 99 12/02/16 06:30 89 20 158/100 98 12/02/16 06:10 81 27 H 149/102 99 12/02/16 06:00 93 H 30 H 149/102 100 12/02/16 05:50 77 21 138/95 99 12/02/16 05:40 83 23 138/95 98 10/18/17 05:30 77 18 138/95 99 18/17 05:20 77 22 139/90 99 18/17 05:10 88 28 H 139/90 99 18/17 05:00 77 22 139/90 99 18/17 04:50 77 22 138/91 99 18/17 04:40 83 20 138/91 98 18/17 04:30 80 21 138/91 99 1817 04:20 83 26 H 131/94 98 18/17 04:10 83 24 131/94 98 18/17 04:00 87 24 131/94 97 18/17 03:52 98.1 F 12/02/16 03:50 88 24 133/91 97 1817 03:40 91 H 28 H 133/91 97 1817 03:30 76 21 133/91 98 18/17 03:20 86 28 H 155/96 99 17 03:10 93 H 19 155/96 99 1817 03:00 87 28 H 155/96 99 18/17 02:50 86 29 H 137/91 99 18/17 02:40 84 29 H 137/91 98 1817 02:30 81 25 H 137/91 99 18/17 02:20 83 19 143/87 99 18/17 02:10 91 H 27 H 143/87 99 1817 02:00 78 27 H 143/87 99 1817 01:50 87 28 H 143/95 98 1817 01:40 94 H 24 143/95 98 18/17 01:30 94 H 17 143/95 98 1817 01:20 97 H 26 H 135/76 98 18/17 01:10 97 H 28 H 135/76 98 1817 01:00 100 H 27 H 135/76 98 1817 00:50 100 H 30 H 139/81 98 18/17 00:40 101 H 27 H 139/81 96 18/17 00:30 97 H 24 139/81 97 18/17 00:20 94 H 30 H 145/81 97 18/17 00:13 100 10/18/17 00:10 95 H 32 H 145/81 99 18/17 00:00 98.5 F 94 H 33 H 145/81 99 1717 23:50 86 16 156/81 100 1717 23:40 82 25 H 146/77 100 1717 23:30 75 21 146/77 100 1717 23:20 90 19 145/85 100 17 23:10 84 23 156/81 100 1717 23:00 70 22 156/81 100 1717 22:50 81 22 145/85 100 17 22:40 74 23 145/85 100 17 22:30 77 20 145/85 100 17 22:20 79 23 146/85 99 17 22:10 91 H 17 146/85 100 17 22:00 80 20 146/85 99 17 21:50 78 24 145/88 99 17 21:40 80 23 100 17 21:30 75 18 147/92 100 1717 21:20 89 20 147/92 100 17 21:10 77 25 H 147/92 100 17 21:00 76 18 147/92 100 17 20:50 88 22 141/92 100 1717 20:40 74 21 141/92 100 17 20:30 74 21 141/92 99 17 20:20 78 21 157/91 100 17 20:10 83 21 157/91 100 17 20:00 98.9 F 72 16 157/91 99 1717 19:50 89 24 151/89 98 17/17 19:41 97 1717 19:40 83 33 H 151/89 99 1717 19:30 85 19 151/89 99 1717 19:20 88 24 154/95 99 1717 19:10 87 30 H 154/95 99 1717 19:00 81 17 154/95 99 1717 18:50 95 H 17 150/93 99 1717 18:40 83 29 H 150/93 99 10/17/17 18:30 77 21 150/93 99 /17/17 18:20 86 25 H 157/99 99 /17/17 18:10 88 24 156/104 99 10/17/17 18:00 83 21 156/104 99 17/17 17:50 96 H 21 151/96 99 17/17 17:40 93 H 24 157/99 100 17/17 17:30 87 19 157/99 100 17/17 17:20 91 H 25 H 151/96 100 17/17 17:10 96 H 30 H 151/96 100 17/17 17:00 87 19 151/96 100 17/17 16:50 91 H 29 H 154/98 100 /17/17 16:40 83 19 154/98 100 17/17 16:30 84 21 154/98 100 17/17 16:20 85 24 158/91 100 17/17 16:10 82 23 158/91 100 17/17 16:00 99.1 F 86 22 161/100 100 17/17 15:50 93 H 16 160/95 100 17/17 15:40 88 27 H 160/95 99 17/17 15:30 87 21 158/91 99 17/17 15:20 96 H 22 153/99 100 17/17 15:10 88 29 H 153/99 100 17/17 15:00 95 H 22 160/95 100 /17/17 14:50 83 18 152/99 100 /17/17 14:40 90 24 152/99 100 17/17 14:30 85 25 H 153/99 100 /17/17 14:20 96 H 27 H 148/106 99 /17/17 14:10 90 21 148/106 100 10/17/17 14:00 89 21 152/99 99 /17/17 13:50 87 27 H 148/106 100 17/17 13:40 93 H 27 H 148/106 100 17/17 13:30 100 H 31 H 148/106 100 /17/17 13:20 89 22 154/99 100 17/17 13:10 98 H 30 H 154/99 100 17/17 13:00 92 H 27 H 154/99 100 10/17/17 12:50 94 H 29 H 163/102 100 12/01/16 12:40 90 32 H 163/102 99 12/01/16 12:30 93 H 20 164/102 99 12/01/16 12:20 94 H 24 163/102 99 12/01/16 12:10 98 H 26 H 163/102 99 12/01/16 12:00 99.6 F 97 H 19 163/102 99 12/01/16 11:50 99 H 34 H 156/110 100 12/01/16 11:40 95 H 27 H 156/110 100 12/01/16 11:30 107 H 36 H 156/110 99 12/01/16 11:20 112 H 33 H 155/104 99 12/01/16 11:10 115 H 20 155/104 99 12/01/16 11:00 103 H 25 H 155/104 99 12/01/16 10:50 108 H 33 H 162/101 99 12/01/16 10:40 102 H 31 H 162/101 98 12/01/16 10:30 99 H 19 162/101 99 12/01/16 10:20 97 H 33 H 157/98 98 12/01/16 10:10 88 20 157/98 98 12/01/16 10:01 96 12/01/16 10:00 85 17 157/98 99 12/01/16 09:50 87 20 161/103 100 12/01/16 09:47 85 188/104 12/01/16 09:40 80 19 161/103 100 12/01/16 09:30 84 16 161/103 100 12/01/16 09:20 92 H 20 168/100 100 12/01/16 09:10 85 18 168/100 100 12/01/16 09:00 85 16 168/100 100 Intake and Output 12/01/16 12/02/16 12/02/16 23:59 07:59 15:59 Intake Total 370 340 Output Total 3800 1200 240 Balance -3430 -860 -240 Intake: IV 250 100 VANCOMYCIN/NS 1 GM/250 ML 250 1 gm In 250 ml @ 166.667 mls/hr IV Q8H [facility] Rx#: [id number] ZOSYN/NS 4.5GM/100ML 4.5 100 gm In 100 ml @ 200 mls/hr IV Q8H [facility] Rx#:[id number] Oral 120 240 Output: Urine 3800 1200 240 Indwelling Catheter 3800 1200 240 Other: Total, Intake Amount 120 240 Total, Output Amount 3800 1200 240 Voiding Method Indwelling Catheter Indwelling Catheter Indwelling Catheter # Bowel Movements 0 0 Weight 83.4 kg Patient Weight 12/02/16 23:59 Weight 83.4 kg - Exam Breasts: Present: normal Cardiovascular: Present: Regular rate, Normal S1 Lungs: Present: Clear to auscultation, Normal air movement Abdomen: Present: normal appearance, soft, normal bowel sounds. Absent: distention, tenderness, guarding Vulva: both: normal Uterus: Present: normal, firm, fundal height below umbilicus. Absent: bogginess , tenderness Extremities: Present: normal Deep Tendon Reflex Grade: Normal +2 Incision: Present: normal, dressed - Labs Labs: Abnormal lab results 12/01/16 12/01/16 12/01/16 Range/Units 08:26 08:26 08:50 WBC 20.3 H (4.5-11.0) K/mm3 MCH 27 L (28-32) pg RDW 19.7 H (13.2-15.2) % Plt Count 87 L (140-440) K/mm3 Chloride 108.2 H (98-107) mmol/L BUN 6 L (7-17) mg/dL Creatinine 0.5 L D (0.7-1.2) mg/dL Calcium 6.0 L (8.4-10.2) mg/dL C-Reactive Protein 11.80 H (0.00-1.30) mg/dL
--- NOTE | 2016-12-02 09:53 | Progress Note ---
Assessment and Plan Assessment: 1) SIRS: fever resolved, leukocytosis worsening. Etiology unclear - DDX. post endometritis, uterine hematoma/bleeding, pneumonia/bronchitis, UTI ( unlikely since admission UA was not remarkable), GB. CRP=11. 2) Uterine hematoma post C section -S/p 11/28 -S/p Uterine embolization 11/30 -S/p suction and D&c of multiple large clots on 11/30 3) Cough before admission-with nommal CXR ? bronchitis ? viral 4) Severe anemia 5) resp failure 6) Abnormal GB - repeat RUQ US no cholecystitis +small stones 7) Presumed endometritis: OR cultures +GNR Plan: -repeat CXR in view of persistent cough -follow-up endometrial cultures, blood cultures, respiratory cultures -obtain procalcitonin -continue zosyn day 2 -stop vancomcyin - no evidence of MRSA Thank you Dr Iglesias for your consultation, will follow up with you. Phobee Gallegos MD Infectious Diseases Specialist [facility] ([facility]) M [phone] O [phone] Subjective Date of service: 12/02/16 Principal diagnosis: s/p c/sec, severe pree , hypotension , hypovolemic Interval history: Feels better, extubated, c/o clear sputum persistent cough which makes her surgical site pain worsened. No fever. No need for pressors overnight. Current Antimicrobials: Zosyn 12/01 Vancomycin 12/01 Previous Antimicrobials: gentamicin amp Microbiology: Blood cultures: 11/30 neg Urine cultures: pend Respiratory cultures: tracheal asp 11/30 pend Vaginal: 11/27 Group B strep Cervix cultures: 11/30 GNR Objective - Exam Narrative Exam: General appearance: alert talking in NAD, coughing Eyes: anicteric sclerae, moist conjunctivae; no lid-lag; PERRLA HENT: Atraumatic; clear OP Neck: Trachea midline; supple, no thyromegaly or lymphadenopathy Lungs: coarse BS [place] CV: RRR, no murmurs Abdomen: Soft, distended, + surgical wound covered by surg dressings no secretions Extremities: + [place] edema Skin: Normal temperature, turgor and texture; no rash, ulcers or subcutaneous nodules Psych: sedated. Neuro: sedated Lines: - Constitutional Vitals: Vital Signs Temp Pulse Resp BP Pulse Ox 98.4 F 92 H 27 H 139/84 100 12/02/16 08:00 12/02/16 08:30 12/02/16 08:30 12/02/16 08:30 12/02/16 08:30 Temperature -Last 24 Hours Temperature 98.4 F Temperature 98.1 F Temperature 98.5 F Temperature 98.9 F Temperature 99.1 F Temperature 99.6 F - Labs CBC & Chem 7: 12/01/16 08:50 12/01/16 08:26 Labs: Abnormal lab results 12/01/16 Range/Units 08:26 C-Reactive Protein 11.80 H (0.00-1.30) mg/dL
[2016-12-02] MEDS: NORMODYNE PO SCH ×2 (10:08→22:48)
[2016-12-02] MEDS: FEOSOL PO SCH (10:09)
--- NOTE | 2016-12-02 10:47 | Progress Note ---
Assessment and Plan Acute respiratory failure. Currently extubated, secondary to bleeding episodes in the context of severe preeclampsia Uterine bleeding. Last hemoglobin 11. Some leukocytosis noted incidentally that could be also related to bleeding event. No fever at this time. Severe preeclampsia. Clinic improved no symptoms at this time. Denies headaches or visual problems Left pleural effusion. Some still noted with atelectasis on the patient x-ray. Clinically, no impairment Hypertension. Labetalol initiated by [employer] Recommendations Monitor blood pressure. Check CBC/hemoglobin this morning Initiate incentive spirometry every 4-6 hours Out of bed as tolerated Monitor for fever and bleeding She continues on the same state and no additional problems, the patient called be transferred outside the ICU. We'll continue monitoring while in the unit Case discussed with Dr. Iglesias and also with patient and her mother. All questions answered, patient and family in agreement with care at this point. Critical care time was 31 minutes of [id number] evaluation and coordination of care Subjective Date of service: 12/02/16 Principal diagnosis: s/p c/sec, severe pree , hypotension , hypovolemic Interval history: The patient reports no chest complaints. She does report an occasional cough which is nonproductive. No shortness of breath or active expectoration. No fever. No bleeding reported mother at the bedside Objective Vital Signs - 12hr 12/01/16 12/01/16 12/01/16 22:50 23:00 23:10 Temperature Pulse Rate 81 70 84 Respiratory 22 22 23 Rate Blood Pressure 145/85 156/81 156/81 O2 Sat by Pulse 100 100 100 Oximetry 12/01/16 12/01/16 12/01/16 23:20 23:30 23:40 Temperature Pulse Rate 90 75 82 Respiratory 19 21 25 H Rate Blood Pressure 145/85 146/77 146/77 O2 Sat by Pulse 100 100 100 Oximetry 12/01/16 12/02/16 12/02/16 23:50 00:00 00:10 Temperature 98.5 F Pulse Rate 86 94 H 95 H Respiratory 16 33 H 32 H Rate Blood Pressure 156/81 145/81 145/81 O2 Sat by Pulse 100 99 99 Oximetry 12/02/16 12/02/16 12/02/16 00:13 00:20 00:30 Temperature Pulse Rate 94 H 97 H Respiratory 30 H 24 Rate Blood Pressure 145/81 139/81 O2 Sat by Pulse 100 97 97 Oximetry 12/02/16 12/02/16 12/02/16 00:40 00:50 01:00 Temperature Pulse Rate 101 H 100 H 100 H Respiratory 27 H 30 H 27 H Rate Blood Pressure 139/81 139/81 135/76 O2 Sat by Pulse 96 98 98 Oximetry 12/02/16 12/02/16 12/02/16 01:10 01:20 01:30 Temperature Pulse Rate 97 H 97 H 94 H Respiratory 28 H 26 H 17 Rate Blood Pressure 135/76 135/76 143/95 O2 Sat by Pulse 98 98 98 Oximetry 12/02/16 12/02/16 12/02/16 01:40 01:50 02:00 Temperature Pulse Rate 94 H 87 78 Respiratory 24 28 H 27 H Rate Blood Pressure 143/95 143/95 143/87 O2 Sat by Pulse 98 98 99 Oximetry 12/02/16 12/02/16 12/02/16 02:10 02:20 02:30 Temperature Pulse Rate 91 H 83 81 Respiratory 27 H 19 25 H Rate Blood Pressure 143/87 143/87 137/91 O2 Sat by Pulse 99 99 99 Oximetry 12/02/16 12/02/16 12/02/16 02:40 02:50 03:00 Temperature Pulse Rate 84 86 87 Respiratory 29 H 29 H 28 H Rate Blood Pressure 137/91 137/91 155/96 O2 Sat by Pulse 98 99 99 Oximetry 12/02/16 12/02/16 12/02/16 03:10 03:20 03:30 Temperature Pulse Rate 93 H 86 76 Respiratory 19 28 H 21 Rate Blood Pressure 155/96 155/96 133/91 O2 Sat by Pulse 99 99 98 Oximetry 12/02/16 12/02/16 12/02/16 03:40 03:50 03:52 Temperature 98.1 F Pulse Rate 91 H 88 Respiratory 28 H 24 Rate Blood Pressure 133/91 133/91 O2 Sat by Pulse 97 97 Oximetry 12/02/16 12/02/16 12/02/16 04:00 04:10 04:20 Temperature Pulse Rate 87 83 83 Respiratory 24 24 26 H Rate Blood Pressure 131/94 131/94 131/94 O2 Sat by Pulse 97 98 98 Oximetry 12/02/16 12/02/16 12/02/16 04:30 04:40 04:50 Temperature Pulse Rate 80 83 77 Respiratory 21 20 22 Rate Blood Pressure 138/91 138/91 138/91 O2 Sat by Pulse 99 98 99 Oximetry 12/02/16 12/02/16 12/02/16 05:00 05:10 05:20 Temperature Pulse Rate 77 88 77 Respiratory 22 28 H 22 Rate Blood Pressure 139/90 139/90 139/90 O2 Sat by Pulse 99 99 99 Oximetry 12/02/16 12/02/16 12/02/16 05:30 05:40 05:50 Temperature Pulse Rate 77 83 77 Respiratory 18 23 21 Rate Blood Pressure 138/95 138/95 138/95 O2 Sat by Pulse 99 98 99 Oximetry 12/02/16 12/02/16 12/02/16 06:00 06:10 06:30 Temperature Pulse Rate 93 H 81 89 Respiratory 30 H 27 H 20 Rate Blood Pressure 149/102 149/102 158/100 O2 Sat by Pulse 100 99 98 Oximetry 12/02/16 12/02/16 12/02/16 07:00 07:30 07:41 Temperature Pulse Rate 74 76 Respiratory 22 20 Rate Blood Pressure 154/98 164/103 O2 Sat by Pulse 99 100 96 Oximetry 12/02/16 12/02/16 12/02/16 07:55 08:00 08:30 Temperature 98.4 F Pulse Rate 84 84 92 H Respiratory 22 27 H Rate Blood Pressure 164/103 146/94 139/84 O2 Sat by Pulse 100 100 Oximetry 12/02/16 10:08 Temperature Pulse Rate 97 H Respiratory Rate Blood Pressure 150/99 O2 Sat by Pulse Oximetry Constitutional: no acute distress, alert, asleep Eyes: non-icteric ENT: oropharynx moist, oropharynx dry Neck: supple, no lymphadenopathy, no JVD Effort: normal Ascultation: Left: diminished breath sounds (left base. Mild), Bilateral: clear Cardiovascular: regular rate and rhythm Gastrointestinal: non-distended Extremities: no cyanosis, no edema Neurologic: normal mental status, non-focal exam, pupils equal and round, CN II- XII normal Psychiatric: mood appropriate, other CBC and BMP: 12/01/16 08:50 12/01/16 08:26 ABG, PT/INR, D-dimer: ABG ABG pH 7.331 pH Units (7.350-7.450) L 11/30/16 17:50 ABG pCO2 45.4 mm Hg 11/30/16 17:50 ABG pO2 144.4 mm Hg (80.0-90.0) H 11/30/16 17:50 ABG O2 Saturation 98.7 % (95.0-99.0) 11/30/16 17:50 PT/INR, D-dimer PT 15.3 Sec. (12.2-14.9) H 11/28/16 18:40 INR 1.15 (0.87-1.13) H 11/28/16 18:40 Abnormal lab findings: Abnormal Labs 11/27/16 11/27/16 11/27/16 10:40 14:55 14:55 WBC RBC Hgb Hct MCH 27 L RDW Plt Count Lymph % (Auto) Lymph # [place] # Seg Neutrophils % Seg Neuts % (Manual) Lymphocytes % (Manual) Seg Neutrophils # Seg Neutrophils # Man Lymphocytes # (Manual) PT INR ABG pH ABG pO2 ABG Base Excess VBG pH Chloride Carbon Dioxide BUN Creatinine Glucose Calcium Magnesium AST 60 H ALT 57 H Alkaline Phosphatase Lactate Dehydrogenase 353 H C-Reactive Protein Total Protein Albumin Ur Specific [place] 1.031 H Urine WBC (Auto) 30.0 H Crossmatch 11/27/16 11/28/16 11/28/16 15:00 00:00 05:48 WBC RBC Hgb Hct MCH RDW Plt Count Lymph % (Auto) Lymph # [place] # Seg Neutrophils % Seg Neuts % (Manual) Lymphocytes % (Manual) Seg Neutrophils # Seg Neutrophils # Man Lymphocytes # (Manual) PT INR ABG pH ABG pO2 ABG Base Excess VBG pH Chloride Carbon Dioxide BUN Creatinine Glucose Calcium Magnesium 6.00 H 6.20 H AST ALT Alkaline Phosphatase Lactate Dehydrogenase C-Reactive Protein Total Protein Albumin Ur Specific [place] Urine WBC (Auto) Crossmatch See Detail 11/28/16 11/28/16 11/28/16 08:30 12:37 18:40 WBC RBC Hgb Hct MCH RDW Plt Count Lymph % (Auto) Lymph # [place] # Seg Neutrophils % Seg Neuts % (Manual) Lymphocytes % (Manual) Seg Neutrophils # Seg Neutrophils # Man Lymphocytes # (Manual) PT INR ABG pH ABG pO2 ABG Base Excess VBG pH 7.297 L Chloride Carbon Dioxide BUN Creatinine Glucose Calcium Magnesium 5.70 H 6.40 H AST ALT Alkaline Phosphatase Lactate Dehydrogenase C-Reactive Protein Total Protein Albumin Ur Specific [place] Urine WBC (Auto) Crossmatch 11/28/16 11/28/16 11/28/16 18:40 18:40 18:40 WBC RBC Hgb 7.2 L D Hct 22.7 L D MCH RDW Plt Count Lymph % (Auto) Lymph # [place] # Seg Neutrophils % Seg Neuts % (Manual) Lymphocytes % (Manual) Seg Neutrophils # Seg Neutrophils # Man Lymphocytes # (Manual) PT 15.3 H INR 1.15 H ABG pH ABG pO2 ABG Base Excess VBG pH Chloride Carbon Dioxide 19 L BUN Creatinine Glucose 124 H Calcium 6.4 L Magnesium AST ALT Alkaline Phosphatase 386 H Lactate Dehydrogenase C-Reactive Protein Total Protein 3.4 L Albumin 1.7 L Ur Specific [place] Urine WBC (Auto) Crossmatch 11/28/16 11/28/16 11/29/16 18:40 22:05 01:04 WBC 21.7 H RBC 2.69 L Hgb 7.2 L 7.3 L Hct 22.7 L 22.9 L MCH 27 L RDW Plt Count Lymph % (Auto) Lymph # [place] # Seg Neutrophils % Seg Neuts % (Manual) Lymphocytes % (Manual) Seg Neutrophils # Seg Neutrophils # Man Lymphocytes # (Manual) PT INR ABG pH ABG pO2 ABG Base Excess VBG pH Chloride Carbon Dioxide BUN Creatinine Glucose Calcium Magnesium 6.60 H AST ALT Alkaline Phosphatase Lactate Dehydrogenase C-Reactive Protein Total Protein Albumin Ur Specific [place] Urine WBC (Auto) Crossmatch 11/29/16 11/29/16 11/29/16 01:04 12:53 12:53 WBC 28.0 H 24.7 H RBC 2.71 L 3.37 L Hgb 7.2 L 9.4 L Hct 23.7 L 28.1 L MCH 27 L RDW Plt Count Lymph % (Auto) Lymph # [place] # Seg Neutrophils % Seg Neuts % (Manual) 97.0 H Lymphocytes % (Manual) 1.0 L 1.0 L Seg Neutrophils # Seg Neutrophils # Man 26.3 H 24.0 H Lymphocytes # (Manual) 0.3 L 0.2 L PT INR ABG pH ABG pO2 ABG Base Excess VBG pH Chloride Carbon Dioxide BUN Creatinine Glucose Calcium Magnesium 6.60 H AST ALT Alkaline Phosphatase Lactate Dehydrogenase C-Reactive Protein Total Protein Albumin Ur Specific [place] Urine WBC (Auto) Crossmatch 11/29/16 11/29/16 11/29/16 18:41 19:38 21:48 WBC 24.5 H 16.1 H RBC 3.26 L 2.23 L Hgb 9.0 L 6.1 L Hct 27.3 L 20.0 L D MCH 27 L RDW 15.7 H Plt Count 125 L 99 L Lymph % (Auto) 8.4 L Lymph # [place] # 1.0 H Seg Neutrophils % 85.3 H Seg Neuts % (Manual) Lymphocytes % (Manual) 5.0 L Seg Neutrophils # 13.7 H Seg Neutrophils # Man 22.5 H Lymphocytes # (Manual) PT INR ABG pH ABG pO2 ABG Base Excess VBG pH Chloride Carbon Dioxide BUN Creatinine Glucose Calcium Magnesium 5.30 H AST ALT Alkaline Phosphatase Lactate Dehydrogenase C-Reactive Protein Total Protein Albumin Ur Specific [place] Urine WBC (Auto) Crossmatch 11/30/16 11/30/16 11/30/16 03:30 04:24 04:52 WBC 11.1 H 17.5 H RBC 1.88 L 2.64 L Hgb 5.1 L* 7.2 L Hct 17.1 L* 21.9 L MCH 27 L 27 L RDW 16.0 H Plt Count 82 L 113 L Lymph % (Auto) 7.9 L Lymph # 0.9 L [place] # Seg Neutrophils % 87.6 H Seg Neuts % (Manual) 94.0 H Lymphocytes % (Manual) 5.0 L Seg Neutrophils # 9.7 H Seg Neutrophils # Man 16.5 H Lymphocytes # (Manual) 0.9 L PT INR ABG pH ABG pO2 ABG Base Excess VBG pH Chloride Carbon Dioxide BUN Creatinine Glucose Calcium Magnesium AST ALT Alkaline Phosphatase Lactate Dehydrogenase C-Reactive Protein Total Protein Albumin Ur Specific [place] Urine WBC (Auto) Crossmatch See Detail 11/30/16 11/30/16 12/01/16 17:50 20:10 08:26 WBC RBC Hgb Hct MCH RDW Plt Count Lymph % (Auto) Lymph # [place] # Seg Neutrophils % Seg Neuts % (Manual) Lymphocytes % (Manual) Seg Neutrophils # Seg Neutrophils # Man Lymphocytes # (Manual) PT INR ABG pH 7.331 L ABG pO2 144.4 H ABG Base Excess -2.6 L VBG pH Chloride 108.2 H Carbon Dioxide BUN 6 L Creatinine 0.5 L D Glucose Calcium 6.0 L Magnesium AST ALT Alkaline Phosphatase Lactate Dehydrogenase C-Reactive Protein Total Protein Albumin Ur Specific [place] Urine WBC (Auto) 12.0 H Crossmatch 12/01/16 12/01/16 08:26 08:50 WBC 20.3 H RBC Hgb Hct MCH 27 L RDW 19.7 H Plt Count 87 L Lymph % (Auto) Lymph # [place] # Seg Neutrophils % Seg Neuts % (Manual) Lymphocytes % (Manual) Seg Neutrophils # Seg Neutrophils # Man Lymphocytes # (Manual) PT INR ABG pH ABG pO2 ABG Base Excess VBG pH Chloride Carbon Dioxide BUN Creatinine Glucose Calcium Magnesium AST ALT Alkaline Phosphatase Lactate Dehydrogenase C-Reactive Protein 11.80 H Total Protein Albumin Ur Specific [place] Urine WBC (Auto) Crossmatch Chest x-ray: report reviewed, image reviewed
[2016-12-02 10:57] LABS: Hematocrit 35.4 % (30.3-42.9); Hemoglobin 12.1 gm/dl (10.1-14.3); Mean Corpuscular HGB Conc 34 % (30-34); Mean Corpuscular Hemoglobin 28 pg (28-32); Mean Corpuscular Volume 82 fl (79-97); Platelet Count 132 K/mm3 (140-440); Red Blood Count 4.34 M/mm3 (3.65-5.03); Red Cell Distribution Width 19.9 % (13.2-15.2); White Blood Count 17.9 K/mm3 (4.5-11.0)
[2016-12-02 11:49] LABS: Blastocytes % (Manual) 0 %
[2016-12-02 11:50] LABS: Anisocytosis 1+; Diff Status Complete; Large Platelets Few; Platelet Estimate Cons; Polychromasia 1+
--- NOTE | 2016-12-02 12:47 | XRay Report ---
Chest 2 views: Compared to 12/02/16 obtained at 2:13 AM. Findings: Borderline cardiomegaly the trachea is midline. Bibasilar airspace opacities noted in the previous study. Suspicion of left pleural effusion. Impression: Bibasilar opacities are suggestive of pneumonitis. New opacity right lower lobe.
[2016-12-02] MEDS: PRENATAL VITAMIN PO SCH (13:39)
[2016-12-02] MEDS ORDERED: SODIUM CHLORIDE FLUSH SYRINGE 10 ML IV SCH (14:37)
[2016-12-02] MEDS: MYLICON PO PRN (16:06)
[2016-12-02] MEDS: NORCO 5/325 PO PRN (16:07)
[2016-12-03] MEDS: ZOSYN/NS 4.5GM/100ML 4.5 GM/100 ML VIAL IV SCH ×4 (00:37→23:46)
[2016-12-03 00:46] LABS: Hemoglobin 10.5 gm/dl (10.1-14.3)
--- NOTE | 2016-12-03 09:06 | Progress Note ---
Assessment and Plan A/P POD#5 s/p Primary c/sec for NRFHT, UFE, Dilatiaton and currettage hemoglobin stable CBC s/p UFE and evacuation of hematoma regular diet continue vanc and zosyn continue PP care refer to IM and ID about lung function and recommnedations Subjective - Subjective Date of service: 12/03/16 Principal diagnosis: s/p c/sec, severe pree , hypotension , hypovolemic Interval history: This is a 26 yo at 37 weeks with partial care. Was last seen 4 weeks ago in [facility]. She rports no hx of HTN nor any medical problems in this . She comes to triage c/o nausea and vomintg and diarrhea for the last 3 weeks. She reports good fm no vb no leaking. She also denies tomas, bv, nor scotomata. She states that she associate with her nausea and vomiting right upper quadrant pain and some back pain. IOL for severe preeclampsia started on Mag. NRFHT and proceeded with primary c/ sec. difficult delivery secondary to wedge of baby head in pelvis. T incision with delivery of argenis breech . subsequently became hypotensive and hypovolemic. Patient transferred to ICU 2 U prbc and FFP given blood count stable for [address] showed a hematoma of [id number]. IR Dr. Carbajal consulted on case for possible UFE and plan for EUA and D and C. Patient reports: appetite normal, voiding normally, pain well controlled, flatus , ambulating normally : doing well Objective - Vital Signs Latest vital signs: Vital Signs Temp Pulse Resp BP BP BP Pulse Ox 12/03/16 04:06 98.5 F 83 20 133/89 12/03/16 00:00 98.8 F 70 18 114/71 12/02/16 22:48 84 135/90 12/02/16 20:30 18 12/02/16 20:01 98.6 F 94 H 18 130/84 12/02/16 16:54 135/90 12/02/16 16:50 98.8 F 84 22 142/98 12/02/16 14:37 98.2 F 94 H 20 120/76 12/02/16 13:30 99 H 17 118/73 98 12/02/16 13:00 101 H 15 132/80 99 12/02/16 12:38 104 H 33 H 128/78 99 10/18/17 12:00 98.6 F 12/02/16 11:30 101 H 25 H 135/85 100 12/02/16 11:00 86 22 141/102 100 12/02/16 10:30 97 H 21 152/101 100 12/02/16 10:08 97 H 150/99 12/02/16 10:00 95 H 24 150/99 100 12/02/16 09:30 97 H 21 147/90 100 Intake and Output 12/02/16 12/03/16 12/03/16 23:59 07:59 15:59 Intake Total 100 200 Output Total 350 400 Balance -250 -200 Intake: IV 100 100 ZOSYN/NS 4.5GM/100ML 4.5 100 100 gm In 100 ml @ 200 mls/hr IV Q8H [facility] Rx#:[id number] Oral 100 Output: Urine 350 400 Indwelling Catheter 350 400 Other: Total, Intake Amount 100 Total, Output Amount 350 400 - Exam Breasts: Present: normal Cardiovascular: Present: Regular rate, Normal S1 Lungs: Present: Clear to auscultation, Normal air movement Abdomen: Present: normal appearance, soft, normal bowel sounds. Absent: distention, tenderness, guarding Vulva: both: normal Uterus: Present: normal, firm, fundal height below umbilicus. Absent: bogginess , tenderness Extremities: Present: normal Deep Tendon Reflex Grade: Normal +2 Incision: Present: normal, dry, intact - Labs Labs: Abnormal lab results 12/02/16 Range/Units 10:19 WBC 17.9 H (4.5-11.0) K/mm3 RDW 19.9 H (13.2-15.2) % Plt Count 132 L (140-440) K/mm3 Seg Neuts % (Manual) 89.0 H (40.0-70.0) % Lymphocytes % (Manual) 4.0 L (13.4-35.0) % Nucleated RBC % 2.0 H (0.0-0.9) % Seg Neutrophils # Man 15.9 H (1.8-7.7) K/mm3 Lymphocytes # (Manual) 0.7 L (1.2-5.4) K/mm3
[2016-12-03] MEDS: FEOSOL PO SCH (10:04)
[2016-12-03] MEDS: NORMODYNE PO SCH ×2 (10:05→22:06)
[2016-12-03] MEDS: PRENATAL VITAMIN PO SCH (10:05)
--- NOTE | 2016-12-03 11:24 | Progress Note ---
Assessment and Plan Assessment: 1) Sepsis: fever resolved, leukocytosis improving. Etiology - bilateral pneumonia +/- endometritis +/- UTI. CRP=11. 2) Uterine hematoma post C section -S/p 11/28 -S/p Uterine embolization 11/30 -S/p suction and D&c of multiple large clots on 11/30 3) Bilateral pneumonia-with initial normal CXR, Repeat CXR + shameka infiltrates ? CAP versus asp 4) Severe anemia - better 5) resp failure 6) Abnormal GB - repeat RUQ US no cholecystitis +small stones 7) Presumed endometritis: OR cultures +E coli 8) UTI 9) Plan: -continue zosyn day 3 of 10 -obtain procalcitonin -upon discharge will do ceftin 500 mg PO q 12 hours and clindamycin 300 mg PO TID total 10 days from 12/01-12/10 -PT/spirometry Thank you Dr Iglesias for your consultation, will follow up with you. Phoebe Gallegos MD Infectious Diseases Specialist [facility], [place] [facility] ([facility]) M [phone] O [phone] Subjective Date of service: 12/03/16 Principal diagnosis: s/p c/sec, severe pree , hypotension , hypovolemic Interval history: Feels better, still cough. Had 100 fever this am. Current Antimicrobials: Zosyn 12/01 Previous Antimicrobials: gentamicin amp Vancomycin 12/01 Microbiology: Blood cultures: 11/30 neg Urine cultures: pend Respiratory cultures: tracheal asp 11/30 pend Vaginal: 11/27 Group B strep Cervix cultures: 11/30 E coli resistant to quinolones Objective - Exam Narrative Exam: General appearance: alert talking in NAD, coughing Eyes: anicteric sclerae, moist conjunctivae; no lid-lag; PERRLA HENT: Atraumatic; clear OP Neck: Trachea midline; supple, no thyromegaly or lymphadenopathy Lungs: bibasilar crackles CV: RRR, no murmurs Abdomen: Soft, distended, + surgical wound covered by surg dressings no secretions Extremities: + [place] edema Skin: Normal temperature, turgor and texture; no rash, ulcers or subcutaneous nodules Psych: sedated. Neuro: sedated Lines: - Constitutional Vitals: Vital Signs Temp Pulse Resp BP Pulse Ox 100.0 F H 86 19 155/97 98 12/03/16 08:45 12/03/16 10:05 12/03/16 08:45 12/03/16 10:05 12/02/16 13:30 Temperature -Last 24 Hours Temperature 100.0 F Temperature 98.5 F Temperature 98.8 F Temperature 98.6 F Temperature 98.8 F Temperature 98.2 F Temperature 98.6 F - Labs CBC & Chem 7: 12/03/16 00:25 12/01/16 08:26 Labs: Abnormal lab results 12/02/16 Range/Units 10:19 Seg Neuts % (Manual) 89.0 H (40.0-70.0) % Lymphocytes % (Manual) 4.0 L (13.4-35.0) % Nucleated RBC % 2.0 H (0.0-0.9) % Seg Neutrophils # Man 15.9 H (1.8-7.7) K/mm3 Lymphocytes # (Manual) 0.7 L (1.2-5.4) K/mm3
[2016-12-03] MEDS: NORCO 5/325 PO PRN ×2 (12:22→20:56)
--- NOTE | 2016-12-03 13:51 | Progress Note ---
Assessment and Plan Assessment and plan: Patient is a 27-year-old female admitted to the hospital at 7 weeks of due to nausea vomiting diarrhea and upper quadrants pain of the right abdominal for about 3 weeks was diagnosed with severe preeclampsia requiring C- section and delivery of the baby and also treatment with magnesium.. Subsequently the patient had a drop in hemoglobin requiring transfusion. Would imaging studies showing a 18 cm hematoma. The patient was also noted to have large pericardial effusion and moderate bilateral pleural effusion with atelectases. As of November 30 the patient had received 4 units packed red blood cells. The patient will subsequently transferred to the ICU due to hypotension. SIRS Severe preeclampsia status post Ecoli on surgical cultures Cough. Intrauterine hematoma Hypovolemic hypotension secondary to hemorrhage HTN Acute respiratory failure Pleural effusion Leukocytosis question reactive versus infectious process. Plan: Continue supportive care. Monitor his H&H, patient is status post 6 units packed red blood cells Continue BB Status post D&C and uterine artery embolization Supportive care for respiratory status, nebs treatment. ID consult has been placed. input noted. Continue antibiotics at this time. Follow blood cultures Echocardiogram reviewed with cardiology peripherally. No evidence of pericardial effusion. Patient continues to clinically improved and pulmonary and cardiac status appears stable. DVT and GI prophylaxis Thank you for allowing us approximately careful palpation of the information become available more therapeutic or diagnostic measures many to implemented Will sign off. please reconsult if needed History Interval history: seen and examined, stable in no acute distress. tolerating diet, abdominal pain with cough, 3/10. cough non productive. Hospitalist Physical - Physical exam Narrative exam: VITAL SIGNS: Reviewed. GENERAL: The patient appeared well nourished and normally developed. Vital signs as documented. HEAD: No signs of head trauma. EYES: Pupils are equal. Extraocular motions intact. EARS: Hearing grossly intact. MOUTH: Oropharynx is normal. NECK: No adenopathy, no JVD. CHEST: Chest with clear breath sounds bilaterally. No wheezes, rales, or rhonchi. CARDIAC: Regular rate and rhythm. S1 and S2, without murmurs, gallops, or rubs. VASCULAR: No Edema. Peripheral pulses normal and equal in all extremities. ABDOMEN: Soft, surgical scar noted tender beside.. No sign of distention. No rebound or guarding, and no masses palpated. Bowel Sounds normal. MUSCULOSKELETAL: Good range of motion of all major joints. Extremities without clubbing, cyanosis or edema. NEUROLOGIC EXAM: Alert and oriented x 3. No focal sensory or strength deficits. Speech normal. Follows commands. PSYCHIATRIC: Mood normal. SKIN: No rash or lesions. - Constitutional Vitals: Temp Pulse Resp BP Pulse Ox 99.1 F 96 H 19 150/94 98 12/03/16 12:25 12/03/16 12:25 12/03/16 12:25 12/03/16 12:25 12/02/16 13:30 General appearance: Present: mild distress Results - Labs CBC & Chem 7: 12/03/16 00:25 12/01/16 08:26 Labs: Laboratory Last Values WBC 17.9 K/mm3 (4.5-11.0) H 12/02/16 10:19 RBC 4.34 M/mm3 (3.65-5.03) 12/02/16 10:19 Hgb 10.5 gm/dl (10.1-14.3) 12/03/16 00:25 Hct 31.0 % (30.3-42.9) 12/03/16 00:25 MCV 82 fl (79-97) 12/02/16 10:19 MCH 28 pg (28-32) 12/02/16 10:19 MCHC 34 % (30-34) 12/02/16 10:19 RDW 19.9 % (13.2-15.2) H 12/02/16 10:19 Plt Count 132 K/mm3 (140-440) L 12/02/16 10:19 Lymph % (Auto) 7.9 % (13.4-35.0) L 11/30/16 03:30 Isabella % (Auto) 4.4 % (0.0-7.3) 11/30/16 03:30 Eos % (Auto) 0.0 % (0.0-4.3) 11/30/16 03:30 Baso % (Auto) 0.1 % (0.0-1.8) 11/30/16 03:30 Lymph # 0.9 K/mm3 (1.2-5.4) L 11/30/16 03:30 Isabella # 0.5 K/mm3 (0.0-0.8) 11/30/16 03:30 Eos # 0.0 K/mm3 (0.0-0.4) 11/30/16 03:30 Baso # 0.0 K/mm3 (0.0-0.1) 11/30/16 03:30 Add Manual Diff Complete 12/02/16 10:19 Total Counted 100 12/02/16 10:19 Seg Neutrophils % 87.6 % (40.0-70.0) H 11/30/16 03:30 Seg Neuts % (Manual) 89.0 % (40.0-70.0) H 12/02/16 10:19 Band Neutrophils % 2.0 % 12/02/16 10:19 Lymphocytes % (Manual) 4.0 % (13.4-35.0) L 12/02/16 10:19 Reactive Lymphs % (Man) 0 % 12/02/16 10:19 Monocytes % (Manual) 3.0 % (0.0-7.3) 12/02/16 10:19 Eosinophils % (Manual) 1.0 % (0.0-4.3) 12/02/16 10:19 Basophils % (Manual) 0 % (0.0-1.8) 11/30/16 04:52 Metamyelocytes % 1.0 % 12/02/16 10:19 Myelocytes % 0 % 12/02/16 10:19 Promyelocytes % 0 % 12/02/16 10:19 Blast Cells % 0 % 12/02/16 10:19 Nucleated RBC % 2.0 % (0.0-0.9) H 12/02/16 10:19 Seg Neutrophils # 9.7 K/mm3 (1.8-7.7) H 11/30/16 03:30 Seg Neutrophils # Man 15.9 K/mm3 (1.8-7.7) H 12/02/16 10:19 Band Neutrophils # 0.4 K/mm3 12/02/16 10:19 Lymphocytes # (Manual) 0.7 K/mm3 (1.2-5.4) L 12/02/16 10:19 Abs React Lymphs (Man) 0.0 K/mm3 12/02/16 10:19 Monocytes # (Manual) 0.5 K/mm3 (0.0-0.8) 12/02/16 10:19 Eosinophils # (Manual) 0.2 K/mm3 (0.0-0.4) 12/02/16 10:19 Basophils # (Manual) 0.0 K/mm3 (0.0-0.1) 12/02/16 10:19 Metamyelocytes # 0.2 K/mm3 12/02/16 10:19 Myelocytes # 0.0 K/mm3 12/02/16 10:19 Promyelocytes # 0.0 K/mm3 12/02/16 10:19 Blast Cells # 0.0 K/mm3 12/02/16 10:19 WBC Morphology Not Reportable 12/02/16 10:19 Hypersegmented Neuts Not Reportable 12/02/16 10:19 Hyposegmented Neuts Not Reportable 12/02/16 10:19 Hypogranular Neuts Not Reportable 12/02/16 10:19 Smudge Cells Not Reportable 12/02/16 10:19 Toxic Granulation Not Reportable 12/02/16 10:19 Toxic Vacuolation Not Reportable 12/02/16 10:19 Dohle Bodies Not Reportable 12/02/16 10:19 Pelger-Huet Anomaly Not Reportable 12/02/16 10:19 Jamarcus Rods Not Reportable 12/02/16 10:19 Platelet Estimate Cons 12/02/16 10:19 Clumped Platelets Not Reportable 12/02/16 10:19 Plt Clumps, EDTA Not Reportable 12/02/16 10:19 Large Platelets Few 12/02/16 10:19 Giant Platelets Not Reportable 12/02/16 10:19 Platelet Satelliting Not Reportable 12/02/16 10:19 Plt Morphology Comment Not Reportable 12/02/16 10:19 RBC Morphology Not Reportable 12/02/16 10:19 Dimorphic RBCs Not Reportable 12/02/16 10:19 Polychromasia 1+ 12/02/16 10:19 Hypochromasia Not Reportable 12/02/16 10:19 Poikilocytosis Not Reportable 12/02/16 10:19 Anisocytosis 1+ 12/02/16 10:19 Microcytosis Not Reportable 12/02/16 10:19 Macrocytosis Not Reportable 12/02/16 10:19 Spherocytes Not Reportable 12/02/16 10:19 Pappenheimer Bodies Not Reportable 12/02/16 10:19 Sickle Cells Not Reportable 12/02/16 10:19 Target Cells Not Reportable 12/02/16 10:19 Tear Drop Cells Not Reportable 12/02/16 10:19 Ovalocytes Not Reportable 12/02/16 10:19 Helmet Cells Not Reportable 12/02/16 10:19 Guerrero-Goodsprings Bodies Not Reportable 12/02/16 10:19 [place] Rings Not Reportable 12/02/16 10:19 Elena Cells Not Reportable 12/02/16 10:19 Bite Cells Not Reportable 12/02/16 10:19 Crenated Cell Not Reportable 12/02/16 10:19 Elliptocytes Not Reportable 12/02/16 10:19 Acanthocytes (Spur) Not Reportable 12/02/16 10:19 Rouleaux Not Reportable 12/02/16 10:19 Hemoglobin C Crystals Not Reportable 12/02/16 10:19 Schistocytes Not Reportable 12/02/16 10:19 Malaria parasites Not Reportable 12/02/16 10:19 Catrachito Bodies Not Reportable 12/02/16 10:19 Hem Pathologist Commnt No 12/02/16 10:19 PT 15.3 Sec. (12.2-14.9) H 11/28/16 18:40 INR 1.15 (0.87-1.13) H 11/28/16 18:40 APTT 27.2 Sec. (24.2-36.6) 11/28/16 18:40 ABG pH 7.331 pH Units (7.350-7.450) L 11/30/16 17:50 ABG pCO2 45.4 mm Hg 11/30/16 17:50 ABG pO2 144.4 mm Hg (80.0-90.0) H 11/30/16 17:50 ABG HCO3 23.5 mmol/L (20.0-26.0) 11/30/16 17:50 ABG O2 Saturation 98.7 % (95.0-99.0) 11/30/16 17:50 ABG O2 Content 17.0 (0.0-44) 11/30/16 17:50 ABG Base Excess -2.6 mmol/L (-2.0-3.0) L 11/30/16 17:50 ABG Hemoglobin 12.3 gm/dl (12.0-16.0) 11/30/16 17:50 ABG Carboxyhemoglobin 1.6 % (0.0-5.0) 11/30/16 17:50 ABG Methemoglobin 0.8 % (0.0-1.5) 11/30/16 17:50 VBG pH 7.297 (7.320-7.420) L 11/28/16 08:30 Oxyhemoglobin 96.3 % (95.0-99.0) 11/30/16 17:50 FiO2 100 % 11/30/16 17:50 Sodium 140 mmol/L (137-145) 12/01/16 08:26 Potassium 4.2 mmol/L (3.6-5.0) 12/01/16 08:26 Chloride 108.2 mmol/L (98-107) H 12/01/16 08:26 Carbon Dioxide 22 mmol/L (22-30) 12/01/16 08:26 Anion Gap 14 mmol/L 12/01/16 08:26 BUN 6 mg/dL (7-17) L 12/01/16 08:26 Creatinine 0.5 mg/dL (0.7-1.2) L D 12/01/16 08:26 Estimated GFR > 60 ml/min 12/01/16 08:26 BUN/Creatinine Ratio 12 % 12/01/16 08:26 Glucose 69 mg/dL (65-100) 12/01/16 08:26 Uric Acid 6.4 mg/dL (3.5-7.6) 11/27/16 14:55 Calcium 6.0 mg/dL (8.4-10.2) L 12/01/16 08:26 Magnesium 5.30 mg/dL (1.7-2.3) H 11/29/16 19:38 Total Bilirubin 0.30 mg/dL (0.1-1.2) 11/28/16 18:40 AST 38 units/L (5-40) 11/28/16 18:40 ALT 35 units/L (7-56) 11/28/16 18:40 Alkaline Phosphatase 386 units/L (35-129) H 11/28/16 18:40 Lactate Dehydrogenase 353 units/L (91-180) H 11/27/16 14:55 C-Reactive Protein 11.80 mg/dL (0.00-1.30) H 12/01/16 08:26 Total Protein 3.4 g/dL (6.3-8.2) L 11/28/16 18:40 Albumin 1.7 g/dL (3.9-5) L 11/28/16 18:40 Albumin/Globulin Ratio 1.0 % 11/28/16 18:40 Urine Color Yellow (Yellow) 11/30/16 20:10 Urine Turbidity Clear (Clear) 11/30/16 20:10 Urine pH 6.0 (5.0-7.0) 11/30/16 20:10 Ur Specific [place] 1.016 (1.003-1.030) 11/30/16 20:10 Urine Protein 100 mg/dl mg/dL (Negative) 11/30/16 20:10 Urine Glucose (UA) Neg mg/dL (Negative) 11/30/16 20:10 Urine Ketones Neg mg/dL (Negative) 11/30/16 20:10 Urine Blood Sm (Negative) 11/30/16 20:10 Urine Nitrite Neg (Negative) 11/30/16 20:10 Urine Bilirubin Neg (Negative) 11/30/16 20:10 Urine Urobilinogen < 2.0 mg/dL (<2.0) 11/30/16 20:10 Ur Leukocyte Esterase Sm (Negative) 11/30/16 20:10 Urine WBC (Auto) 12.0 /HPF (0.0-6.0) H 11/30/16 20:10 Urine RBC (Auto) 9.0 /HPF (0.0-6.0) 11/30/16 20:10 U Epithel Cells (Auto) 2.0 /HPF (0-13.0) 11/27/16 10:40 Urine Bacteria (Auto) 1+ /HPF (Negative) 11/27/16 10:40 Hyaline Casts 2 /LPF 11/30/16 20:10 Granular Casts 1 /LPF 11/30/16 20:10 Urine Mucus Few /HPF 11/30/16 20:10 Urine Opiates Screen Presumptive negative 11/27/16 10:40 Urine Methadone Screen Presumptive negative 11/27/16 10:40 Ur Barbiturates Screen Presumptive negative 11/27/16 10:40 Ur Phencyclidine Scrn Presumptive negative 11/27/16 10:40 Ur Amphetamines Screen Presumptive negative 11/27/16 10:40 U Benzodiazepines Scrn Presumptive negative 11/27/16 10:40 Urine Cocaine Screen Presumptive negative 11/27/16 10:40 U Marijuana (THC) Screen Presumptive negative 11/27/16 10:40 Drugs of Abuse Note Disclamer 11/27/16 10:40 RPR Nonreactive (Nonreactive) 11/27/16 14:55 Blood Type AB POSITIVE 11/30/16 04:24 Antibody Screen TNR 11/30/16 04:24 PRAVIN Antibody Screen Negative 11/30/16 04:24 Crossmatch See Detail 11/30/16 04:24
[2016-12-04] MEDS: ZOSYN/NS 4.5GM/100ML 4.5 GM/100 ML VIAL IV SCH ×2 (08:20→15:58)
[2016-12-04] MEDS: FEOSOL PO SCH (11:05)
[2016-12-04] MEDS: NORMODYNE PO SCH ×2 (11:06→22:16)
[2016-12-04] MEDS: PRENATAL VITAMIN PO SCH (11:07)
[2016-12-04] MEDS: MILK OF MAGNESIA PO PRN (11:07)
--- NOTE | 2016-12-04 11:23 | Progress Note ---
Assessment and Plan Assessment: 1) Sepsis: fever resolved, leukocytosis improving. Etiology - bilateral pneumonia +/- endometritis +/- UTI. CRP=11. 2) Uterine hematoma post C section -S/p 11/28 -S/p Uterine embolization 11/30 -S/p suction and D&c of multiple large clots on 11/30 3) Bilateral pneumonia-with initial normal CXR, Repeat CXR + shameka infiltrates ? CAP versus asp 4) Severe anemia - better 5) resp failure 6) Abnormal GB - repeat RUQ US no cholecystitis +small stones 7) Presumed endometritis: OR cultures +E coli 8) UTI 9) Plan: -continue zosyn day 4 of 10 -obtain procalcitonin -upon discharge will do ceftin 500 mg PO q 12 hours and clindamycin 300 mg PO TID total 10 days from 12/01-12/10 -PT/spirometry I am signing off Thank you Dr Iglesias for your consultation, will follow up with you. Phoebe Gallegos MD Infectious Diseases Specialist [facility] [phone] Subjective Date of service: 12/04/16 Principal diagnosis: s/p c/sec, severe pree , hypotension , hypovolemic Interval history: Feels much better, cough better. No fever. Current Antimicrobials: Zosyn 12/01 Previous Antimicrobials: gentamicin amp Vancomycin 12/01 Microbiology: Blood cultures: 11/30 neg Urine cultures: pend Respiratory cultures: tracheal asp 11/30 pend Vaginal: 11/27 Group B strep Cervix cultures: 11/30 E coli resistant to quinolones Objective - Exam Narrative Exam: General appearance: alert talking in NAD, coughing Eyes: anicteric sclerae, moist conjunctivae; no lid-lag; PERRLA HENT: Atraumatic; clear OP Neck: Trachea midline; supple, no thyromegaly or lymphadenopathy Lungs: CTA CV: RRR, no murmurs Abdomen: Soft, distended, + surgical wound covered by surg dressings no secretions Extremities: + mild [place]ka edema Skin: Normal temperature, turgor and texture; no rash, ulcers or subcutaneous nodules Psych: sedated. Neuro: sedated Lines: - Constitutional Vitals: Vital Signs Temp Pulse Resp BP Pulse Ox 98.8 F 80 20 140/90 97 12/04/16 08:32 12/04/16 11:06 12/04/16 08:32 12/04/16 11:06 12/04/16 03:08 Temperature -Last 24 Hours Temperature 98.8 F Temperature 98.5 F Temperature 98.2 F Temperature 99.1 F Temperature 98.5 F Temperature 99.1 F - Labs CBC & Chem 7: 12/03/16 00:25 12/01/16 08:26
--- NOTE | 2016-12-04 12:36 | Progress Note ---
Assessment and Plan A: POD#7 s/p Primary c/sec for NRFHT, UFE, Dilatiaton and currettage Cough after respiratory failure on ventilator and suspected pneumonia on antibiotics; now improving P: Continue postoperative care Reconsult Pulmonology for further recs regarding optimizing pulmonary function All consults greatly appreciated Subjective - Subjective Date of service: 12/04/16 Principal diagnosis: s/p c/sec, severe pree , hypotension , hypovolemic Interval history: Pt feeling better each day. Still coughing frequently with yellow sputum though. Patient reports: appetite normal, voiding normally, pain well controlled, flatus , ambulating normally, no bowel movement : doing well Objective - Vital Signs Latest vital signs: Vital Signs Temp Pulse Resp BP BP Pulse Ox 12/04/16 11:06 80 140/90 12/04/16 08:32 98.8 F 82 20 148/96 12/04/16 05:00 98.5 F 82 18 142/96 12/04/16 03:08 97 12/04/16 00:00 98.2 F 90 16 134/86 12/03/16 22:06 93 H 138/102 12/03/16 20:20 99.1 F 89 18 144/92 12/03/16 16:30 98.5 F 85 18 148/102 Intake and Output 12/03/16 12/04/16 12/04/16 22:59 06:59 14:59 Intake Total 460 300 Output Total 1000 900 800 Balance -540 -600 -800 Intake: IV 100 100 ZOSYN/NS 4.5GM/100ML 4.5 100 100 gm In 100 ml @ 200 mls/hr IV Q8H REPLACED BY [facility] Rx#:[id number] Oral 240 Intake, Free Water 120 200 Output: Urine 1000 900 800 Void 1000 900 800 Other: Total, Intake Amount 240 Total, Output Amount 600 300 800 Voiding Method Toilet # Voids Void 2 - Exam Breasts: Present: deferred Cardiovascular: Present: Regular rate Lungs: Present: Other (crackles present, shallow breaths ) Abdomen: Present: soft, distention (mild ), abnormal bowel sounds (hypoactive ) Uterus: Present: fundal height at umbilicus Extremities: Present: normal Incision: Present: intact
--- NOTE | 2016-12-04 14:05 | Progress Note ---
Assessment and Plan Cough.Mild chest congestion, crackles noted Acute respiratory failure. s/p extubation, secondary to bleeding episodes in the context of severe preeclampsia.Appears resolved Uterine bleeding. resolved Some leukocytosis noted incidentally on last CBC Severe preeclampsia. Clinic improved no symptoms at this time. Denies headaches or visual problems Left pleural effusion, completing TX for pneumonia. Hypertension. Controlled Recommendations IS q 1-2 hr Update CBC/hemoglobin Update CXR If chest congestion,fluid still noted,do BNP Complete ABX as stated by from ID Discussed with nurses Subjective Date of service: 12/04/16 Principal diagnosis: s/p c/sec, severe pree , hypotension , hypovolemic Interval history: called back to see pt- she is c/o some cough. No SOB , no fever Objective Vital Signs - 12hr 12/04/16 12/04/16 12/04/16 03:08 05:00 08:32 Temperature 98.5 F 98.8 F Pulse Rate 82 82 Respiratory 18 20 Rate Blood Pressure Blood Pressure 142/96 148/96 [Left] O2 Sat by Pulse 97 Oximetry 12/04/16 12/04/16 11:06 12:13 Temperature 100.1 F H Pulse Rate 80 86 Respiratory 24 Rate Blood Pressure 140/90 Blood Pressure 148/98 [Left] O2 Sat by Pulse Oximetry Constitutional: no acute distress, alert, asleep Eyes: non-icteric ENT: oropharynx moist, oropharynx dry Neck: supple, no lymphadenopathy, no JVD Effort: normal Ascultation: Bilateral: rales (bibasilar) Cardiovascular: regular rate and rhythm Gastrointestinal: non-distended Extremities: no cyanosis, no edema Neurologic: normal mental status, non-focal exam, pupils equal and round, CN II- XII normal Psychiatric: mood appropriate, other CBC and BMP: 12/03/16 00:25 12/01/16 08:26 ABG, PT/INR, D-dimer: ABG ABG pH 7.331 pH Units (7.350-7.450) L 11/30/16 17:50 ABG pCO2 45.4 mm Hg 11/30/16 17:50 ABG pO2 144.4 mm Hg (80.0-90.0) H 11/30/16 17:50 ABG O2 Saturation 98.7 % (95.0-99.0) 11/30/16 17:50 PT/INR, D-dimer PT 15.3 Sec. (12.2-14.9) H 11/28/16 18:40 INR 1.15 (0.87-1.13) H 11/28/16 18:40 Abnormal lab findings: Abnormal Labs 11/27/16 11/27/16 11/27/16 10:40 14:55 14:55 WBC RBC Hgb Hct MCH 27 L RDW Plt Count Lymph % (Auto) Lymph # Hall # Seg Neutrophils % Seg Neuts % (Manual) Lymphocytes % (Manual) Nucleated RBC % Seg Neutrophils # Seg Neutrophils # Man Lymphocytes # (Manual) PT INR ABG pH ABG pO2 ABG Base Excess VBG pH Chloride Carbon Dioxide BUN Creatinine Glucose Calcium Magnesium AST 60 H ALT 57 H Alkaline Phosphatase Lactate Dehydrogenase 353 H C-Reactive Protein Total Protein Albumin Ur Specific [place] 1.031 H Urine WBC (Auto) 30.0 H Crossmatch 11/27/16 11/28/16 11/28/16 15:00 00:00 05:48 WBC RBC Hgb Hct MCH RDW Plt Count Lymph % (Auto) Lymph # Hall # Seg Neutrophils % Seg Neuts % (Manual) Lymphocytes % (Manual) Nucleated RBC % Seg Neutrophils # Seg Neutrophils # Man Lymphocytes # (Manual) PT INR ABG pH ABG pO2 ABG Base Excess VBG pH Chloride Carbon Dioxide BUN Creatinine Glucose Calcium Magnesium 6.00 H 6.20 H AST ALT Alkaline Phosphatase Lactate Dehydrogenase C-Reactive Protein Total Protein Albumin Ur Specific [place] Urine WBC (Auto) Crossmatch See Detail 11/28/16 11/28/16 11/28/16 08:30 12:37 18:40 WBC RBC Hgb Hct MCH RDW Plt Count Lymph % (Auto) Lymph # Hall # Seg Neutrophils % Seg Neuts % (Manual) Lymphocytes % (Manual) Nucleated RBC % Seg Neutrophils # Seg Neutrophils # Man Lymphocytes # (Manual) PT INR ABG pH ABG pO2 ABG Base Excess VBG pH 7.297 L Chloride Carbon Dioxide BUN Creatinine Glucose Calcium Magnesium 5.70 H 6.40 H AST ALT Alkaline Phosphatase Lactate Dehydrogenase C-Reactive Protein Total Protein Albumin Ur Specific [place] Urine WBC (Auto) Crossmatch 11/28/16 11/28/16 11/28/16 18:40 18:40 18:40 WBC RBC Hgb 7.2 L D Hct 22.7 L D MCH RDW Plt Count Lymph % (Auto) Lymph # Hall # Seg Neutrophils % Seg Neuts % (Manual) Lymphocytes % (Manual) Nucleated RBC % Seg Neutrophils # Seg Neutrophils # Man Lymphocytes # (Manual) PT 15.3 H INR 1.15 H ABG pH ABG pO2 ABG Base Excess VBG pH Chloride Carbon Dioxide 19 L BUN Creatinine Glucose 124 H Calcium 6.4 L Magnesium AST ALT Alkaline Phosphatase 386 H Lactate Dehydrogenase C-Reactive Protein Total Protein 3.4 L Albumin 1.7 L Ur Specific [place] Urine WBC (Auto) Crossmatch 11/28/16 11/28/16 11/29/16 18:40 22:05 01:04 WBC 21.7 H RBC 2.69 L Hgb 7.2 L 7.3 L Hct 22.7 L 22.9 L MCH 27 L RDW Plt Count Lymph % (Auto) Lymph # Hall # Seg Neutrophils % Seg Neuts % (Manual) Lymphocytes % (Manual) Nucleated RBC % Seg Neutrophils # Seg Neutrophils # Man Lymphocytes # (Manual) PT INR ABG pH ABG pO2 ABG Base Excess VBG pH Chloride Carbon Dioxide BUN Creatinine Glucose Calcium Magnesium 6.60 H AST ALT Alkaline Phosphatase Lactate Dehydrogenase C-Reactive Protein Total Protein Albumin Ur Specific [place] Urine WBC (Auto) Crossmatch 11/29/16 11/29/16 11/29/16 01:04 12:53 12:53 WBC 28.0 H 24.7 H RBC 2.71 L 3.37 L Hgb 7.2 L 9.4 L Hct 23.7 L 28.1 L MCH 27 L RDW Plt Count Lymph % (Auto) Lymph # [place] # Seg Neutrophils % Seg Neuts % (Manual) 97.0 H Lymphocytes % (Manual) 1.0 L 1.0 L Nucleated RBC % Seg Neutrophils # Seg Neutrophils # Man 26.3 H 24.0 H Lymphocytes # (Manual) 0.3 L 0.2 L PT INR ABG pH ABG pO2 ABG Base Excess VBG pH Chloride Carbon Dioxide BUN Creatinine Glucose Calcium Magnesium 6.60 H AST ALT Alkaline Phosphatase Lactate Dehydrogenase C-Reactive Protein Total Protein Albumin Ur Specific [place] Urine WBC (Auto) Crossmatch 11/29/16 11/29/16 11/29/16 18:41 19:38 21:48 WBC 24.5 H 16.1 H RBC 3.26 L 2.23 L Hgb 9.0 L 6.1 L Hct 27.3 L 20.0 L D MCH 27 L RDW 15.7 H Plt Count 125 L 99 L Lymph % (Auto) 8.4 L Lymph # Hall # 1.0 H Seg Neutrophils % 85.3 H Seg Neuts % (Manual) Lymphocytes % (Manual) 5.0 L Nucleated RBC % Seg Neutrophils # 13.7 H Seg Neutrophils # Man 22.5 H Lymphocytes # (Manual) PT INR ABG pH ABG pO2 ABG Base Excess VBG pH Chloride Carbon Dioxide BUN Creatinine Glucose Calcium Magnesium 5.30 H AST ALT Alkaline Phosphatase Lactate Dehydrogenase C-Reactive Protein Total Protein Albumin Ur Specific [place] Urine WBC (Auto) Crossmatch 11/30/16 11/30/16 11/30/16 03:30 04:24 04:52 WBC 11.1 H 17.5 H RBC 1.88 L 2.64 L Hgb 5.1 L* 7.2 L Hct 17.1 L* 21.9 L MCH 27 L 27 L RDW 16.0 H Plt Count 82 L 113 L Lymph % (Auto) 7.9 L Lymph # 0.9 L Hall # Seg Neutrophils % 87.6 H Seg Neuts % (Manual) 94.0 H Lymphocytes % (Manual) 5.0 L Nucleated RBC % Seg Neutrophils # 9.7 H Seg Neutrophils # Man 16.5 H Lymphocytes # (Manual) 0.9 L PT INR ABG pH ABG pO2 ABG Base Excess VBG pH Chloride Carbon Dioxide BUN Creatinine Glucose Calcium Magnesium AST ALT Alkaline Phosphatase Lactate Dehydrogenase C-Reactive Protein Total Protein Albumin Ur Specific [place] Urine WBC (Auto) Crossmatch See Detail 11/30/16 11/30/16 12/01/16 17:50 20:10 08:26 WBC RBC Hgb Hct MCH RDW Plt Count Lymph % (Auto) Lymph # [place] # Seg Neutrophils % Seg Neuts % (Manual) Lymphocytes % (Manual) Nucleated RBC % Seg Neutrophils # Seg Neutrophils # Man Lymphocytes # (Manual) PT INR ABG pH 7.331 L ABG pO2 144.4 H ABG Base Excess -2.6 L VBG pH Chloride 108.2 H Carbon Dioxide BUN 6 L Creatinine 0.5 L D Glucose Calcium 6.0 L Magnesium AST ALT Alkaline Phosphatase Lactate Dehydrogenase C-Reactive Protein Total Protein Albumin Ur Specific [place] Urine WBC (Auto) 12.0 H Crossmatch 12/01/16 12/01/16 12/02/16 08:26 08:50 10:19 WBC 20.3 H 17.9 H RBC Hgb Hct MCH 27 L RDW 19.7 H 19.9 H Plt Count 87 L 132 L Lymph % (Auto) Lymph # [place] # Seg Neutrophils % Seg Neuts % (Manual) 89.0 H Lymphocytes % (Manual) 4.0 L Nucleated RBC % 2.0 H Seg Neutrophils # Seg Neutrophils # Man 15.9 H Lymphocytes # (Manual) 0.7 L PT INR ABG pH ABG pO2 ABG Base Excess VBG pH Chloride Carbon Dioxide BUN Creatinine Glucose Calcium Magnesium AST ALT Alkaline Phosphatase Lactate Dehydrogenase C-Reactive Protein 11.80 H Total Protein Albumin Ur Specific [place] Urine WBC (Auto) Crossmatch
[2016-12-04] MEDS ORDERED: NORMODYNE PO ONE (15:00)
--- NOTE | 2016-12-04 15:45 | XRay Report ---
PORTABLE CHEST INDICATION: Cough. COMPARISON: 12/02/2016 FINDINGS: Portable, frontal chest radiograph demonstrates stable cardiomediastinal silhouette. Improved bibasilar opacities with mild hazy atelectasis now remaining. Right hemidiaphragm slightly elevated. No large pleural effusions or CHF. Intact bones. CONCLUSION: Mild residual bibasilar probable atelectasis with much interval clearing, as described. Thank you for the opportunity to participate in this patient's care.
[2016-12-04 17:28] LABS: Hematocrit 28.1 % (30.3-42.9); Hemoglobin 9.5 gm/dl (10.1-14.3); Mean Corpuscular HGB Conc 34 % (30-34); Mean Corpuscular Hemoglobin 28 pg (28-32); Mean Corpuscular Volume 83 fl (79-97); Platelet Count 178 K/mm3 (140-440); Red Blood Count 3.38 M/mm3 (3.65-5.03); Red Cell Distribution Width 19.8 % (13.2-15.2); White Blood Count 11.7 K/mm3 (4.5-11.0)
[2016-12-04 19:02] LABS: Basophils % (Manual) 0 % (0.0-1.8); Blastocytes % (Manual) 0 %
[2016-12-04 19:04] LABS: Anisocytosis 1+; Diff Status Complete; Platelet Estimate Consistent w Auto
[2016-12-05] MEDS: ZOSYN/NS 4.5GM/100ML 4.5 GM/100 ML VIAL IV SCH ×3 (00:02→16:11)
[2016-12-05] MEDS: MILK OF MAGNESIA PO PRN (05:18)
[2016-12-05] MEDS: FEOSOL PO SCH (09:35)
[2016-12-05] MEDS: NORMODYNE PO SCH (09:35)
[2016-12-05] MEDS: PRENATAL VITAMIN PO SCH (09:35)
--- NOTE | 2016-12-05 10:19 | Progress Note ---
Assessment and Plan - Patient Problems (1) Acute respiratory failure Current Visit: Yes Status: Acute Qualifiers: Respiratory failure complication: R (2) Preeclampsia Current Visit: Yes Status: Acute Qualifiers: Trimester: third trimester Qualified Code(s): O14.93 - Unspecified pre- eclampsia, third trimester (3) Delivery by emergency Current Visit: Yes Status: Acute (4) Hematoma of uterus Current Visit: Yes Status: Acute Qualifiers: Encounter type: initial encounter Qualified Code(s): S37.62XA - Contusion of uterus, initial encounter (5) Leukocytosis Current Visit: Yes Status: Acute Qualifiers: Leukocytosis type: L Subjective Principal diagnosis: s/p c/sec, severe pree , hypotension , hypovolemic Interval history: awake off o2 no distress Objective Vital Signs - 12hr 12/05/16 12/05/16 12/05/16 00:35 04:35 09:05 Temperature 98.9 F 98.1 F 98.3 F Pulse Rate 101 H 96 H 104 H Respiratory 20 20 Rate Blood Pressure Blood Pressure 142/89 135/96 151/85 [Left] 12/05/16 09:35 Temperature Pulse Rate Respiratory Rate Blood Pressure 151/85 Blood Pressure [Left] Constitutional: no acute distress, alert Eyes: non-icteric ENT: oropharynx moist Neck: supple, no lymphadenopathy, no JVD Effort: normal Ascultation: Bilateral: clear Cardiovascular: regular rate and rhythm Gastrointestinal: non-distended Extremities: no cyanosis, no edema Neurologic: normal mental status, non-focal exam, pupils equal and round, CN II- XII normal Psychiatric: mood appropriate, other CBC and BMP: 12/04/16 16:34 12/01/16 08:26 ABG, PT/INR, D-dimer: ABG ABG pH 7.331 pH Units (7.350-7.450) L 11/30/16 17:50 ABG pCO2 45.4 mm Hg 11/30/16 17:50 ABG pO2 144.4 mm Hg (80.0-90.0) H 11/30/16 17:50 ABG O2 Saturation 98.7 % (95.0-99.0) 11/30/16 17:50 PT/INR, D-dimer PT 15.3 Sec. (12.2-14.9) H 10/14/17 18:40 INR 1.15 (0.87-1.13) H 11/28/16 18:40 Abnormal lab findings: Abnormal Labs 11/27/16 11/27/16 11/27/16 10:40 14:55 14:55 WBC RBC Hgb Hct MCH 27 L RDW Plt Count Lymph % (Auto) Lymph # [place] # Seg Neutrophils % Seg Neuts % (Manual) Lymphocytes % (Manual) Monocytes % (Manual) Nucleated RBC % Seg Neutrophils # Seg Neutrophils # Man Lymphocytes # (Manual) Monocytes # (Manual) PT INR ABG pH ABG pO2 ABG Base Excess VBG pH Chloride Carbon Dioxide BUN Creatinine Glucose Calcium Magnesium AST 60 H ALT 57 H Alkaline Phosphatase Lactate Dehydrogenase 353 H C-Reactive Protein Total Protein Albumin Ur Specific [place] 1.031 H Urine WBC (Auto) 30.0 H Crossmatch 11/27/16 11/28/16 11/28/16 15:00 00:00 05:48 WBC RBC Hgb Hct MCH RDW Plt Count Lymph % (Auto) Lymph # [place] # Seg Neutrophils % Seg Neuts % (Manual) Lymphocytes % (Manual) Monocytes % (Manual) Nucleated RBC % Seg Neutrophils # Seg Neutrophils # Man Lymphocytes # (Manual) Monocytes # (Manual) PT INR ABG pH ABG pO2 ABG Base Excess VBG pH Chloride Carbon Dioxide BUN Creatinine Glucose Calcium Magnesium 6.00 H 6.20 H AST ALT Alkaline Phosphatase Lactate Dehydrogenase C-Reactive Protein Total Protein Albumin Ur Specific [place] Urine WBC (Auto) Crossmatch See Detail 11/28/16 11/28/16 11/28/16 08:30 12:37 18:40 WBC RBC Hgb Hct MCH RDW Plt Count Lymph % (Auto) Lymph # [place] # Seg Neutrophils % Seg Neuts % (Manual) Lymphocytes % (Manual) Monocytes % (Manual) Nucleated RBC % Seg Neutrophils # Seg Neutrophils # Man Lymphocytes # (Manual) Monocytes # (Manual) PT INR ABG pH ABG pO2 ABG Base Excess VBG pH 7.297 L Chloride Carbon Dioxide BUN Creatinine Glucose Calcium Magnesium 5.70 H 6.40 H AST ALT Alkaline Phosphatase Lactate Dehydrogenase C-Reactive Protein Total Protein Albumin Ur Specific [place] Urine WBC (Auto) Crossmatch 11/28/16 11/28/16 11/28/16 18:40 18:40 18:40 WBC RBC Hgb 7.2 L D Hct 22.7 L D MCH RDW Plt Count Lymph % (Auto) Lymph # [place] # Seg Neutrophils % Seg Neuts % (Manual) Lymphocytes % (Manual) Monocytes % (Manual) Nucleated RBC % Seg Neutrophils # Seg Neutrophils # Man Lymphocytes # (Manual) Monocytes # (Manual) PT 15.3 H INR 1.15 H ABG pH ABG pO2 ABG Base Excess VBG pH Chloride Carbon Dioxide 19 L BUN Creatinine Glucose 124 H Calcium 6.4 L Magnesium AST ALT Alkaline Phosphatase 386 H Lactate Dehydrogenase C-Reactive Protein Total Protein 3.4 L Albumin 1.7 L Ur Specific [place] Urine WBC (Auto) Crossmatch 11/28/16 11/28/16 11/29/16 18:40 22:05 01:04 WBC 21.7 H RBC 2.69 L Hgb 7.2 L 7.3 L Hct 22.7 L 22.9 L MCH 27 L RDW Plt Count Lymph % (Auto) Lymph # [place] # Seg Neutrophils % Seg Neuts % (Manual) Lymphocytes % (Manual) Monocytes % (Manual) Nucleated RBC % Seg Neutrophils # Seg Neutrophils # Man Lymphocytes # (Manual) Monocytes # (Manual) PT INR ABG pH ABG pO2 ABG Base Excess VBG pH Chloride Carbon Dioxide BUN Creatinine Glucose Calcium Magnesium 6.60 H AST ALT Alkaline Phosphatase Lactate Dehydrogenase C-Reactive Protein Total Protein Albumin Ur Specific [place] Urine WBC (Auto) Crossmatch 11/29/16 11/29/16 11/29/16 01:04 12:53 12:53 WBC 28.0 H 24.7 H RBC 2.71 L 3.37 L Hgb 7.2 L 9.4 L Hct 23.7 L 28.1 L MCH 27 L RDW Plt Count Lymph % (Auto) Lymph # [place] # Seg Neutrophils % Seg Neuts % (Manual) 97.0 H Lymphocytes % (Manual) 1.0 L 1.0 L Monocytes % (Manual) Nucleated RBC % Seg Neutrophils # Seg Neutrophils # Man 26.3 H 24.0 H Lymphocytes # (Manual) 0.3 L 0.2 L Monocytes # (Manual) PT INR ABG pH ABG pO2 ABG Base Excess VBG pH Chloride Carbon Dioxide BUN Creatinine Glucose Calcium Magnesium 6.60 H AST ALT Alkaline Phosphatase Lactate Dehydrogenase C-Reactive Protein Total Protein Albumin Ur Specific [place] Urine WBC (Auto) Crossmatch 11/29/16 11/29/16 11/29/16 18:41 19:38 21:48 WBC 24.5 H 16.1 H RBC 3.26 L 2.23 L Hgb 9.0 L 6.1 L Hct 27.3 L 20.0 L D MCH 27 L RDW 15.7 H Plt Count 125 L 99 L Lymph % (Auto) 8.4 L Lymph # [place] # 1.0 H Seg Neutrophils % 85.3 H Seg Neuts % (Manual) Lymphocytes % (Manual) 5.0 L Monocytes % (Manual) Nucleated RBC % Seg Neutrophils # 13.7 H Seg Neutrophils # Man 22.5 H Lymphocytes # (Manual) Monocytes # (Manual) PT INR ABG pH ABG pO2 ABG Base Excess VBG pH Chloride Carbon Dioxide BUN Creatinine Glucose Calcium Magnesium 5.30 H AST ALT Alkaline Phosphatase Lactate Dehydrogenase C-Reactive Protein Total Protein Albumin Ur Specific [place] Urine WBC (Auto) Crossmatch 11/30/16 11/30/16 11/30/16 03:30 04:24 04:52 WBC 11.1 H 17.5 H RBC 1.88 L 2.64 L Hgb 5.1 L* 7.2 L Hct 17.1 L* 21.9 L MCH 27 L 27 L RDW 16.0 H Plt Count 82 L 113 L Lymph % (Auto) 7.9 L Lymph # 0.9 L [place] # Seg Neutrophils % 87.6 H Seg Neuts % (Manual) 94.0 H Lymphocytes % (Manual) 5.0 L Monocytes % (Manual) Nucleated RBC % Seg Neutrophils # 9.7 H Seg Neutrophils # Man 16.5 H Lymphocytes # (Manual) 0.9 L Monocytes # (Manual) PT INR ABG pH ABG pO2 ABG Base Excess VBG pH Chloride Carbon Dioxide BUN Creatinine Glucose Calcium Magnesium AST ALT Alkaline Phosphatase Lactate Dehydrogenase C-Reactive Protein Total Protein Albumin Ur Specific [place] Urine WBC (Auto) Crossmatch See Detail 11/30/16 11/30/16 12/01/16 17:50 20:10 08:26 WBC RBC Hgb Hct MCH RDW Plt Count Lymph % (Auto) Lymph # [place] # Seg Neutrophils % Seg Neuts % (Manual) Lymphocytes % (Manual) Monocytes % (Manual) Nucleated RBC % Seg Neutrophils # Seg Neutrophils # Man Lymphocytes # (Manual) Monocytes # (Manual) PT INR ABG pH 7.331 L ABG pO2 144.4 H ABG Base Excess -2.6 L VBG pH Chloride 108.2 H Carbon Dioxide BUN 6 L Creatinine 0.5 L D Glucose Calcium 6.0 L Magnesium AST ALT Alkaline Phosphatase Lactate Dehydrogenase C-Reactive Protein Total Protein Albumin Ur Specific [place] Urine WBC (Auto) 12.0 H Crossmatch 12/01/16 12/01/16 12/02/16 08:26 08:50 10:19 WBC 20.3 H 17.9 H RBC Hgb Hct MCH 27 L RDW 19.7 H 19.9 H Plt Count 87 L 132 L Lymph % (Auto) Lymph # [place] # Seg Neutrophils % Seg Neuts % (Manual) 89.0 H Lymphocytes % (Manual) 4.0 L Monocytes % (Manual) Nucleated RBC % 2.0 H Seg Neutrophils # Seg Neutrophils # Man 15.9 H Lymphocytes # (Manual) 0.7 L Monocytes # (Manual) PT INR ABG pH ABG pO2 ABG Base Excess VBG pH Chloride Carbon Dioxide BUN Creatinine Glucose Calcium Magnesium AST ALT Alkaline Phosphatase Lactate Dehydrogenase C-Reactive Protein 11.80 H Total Protein Albumin Ur Specific [place] Urine WBC (Auto) Crossmatch 12/04/16 16:34 WBC 11.7 H RBC 3.38 L Hgb 9.5 L Hct 28.1 L MCH RDW 19.8 H Plt Count Lymph % (Auto) Lymph # [place] # Seg Neutrophils % Seg Neuts % (Manual) 73.0 H Lymphocytes % (Manual) 13.0 L Monocytes % (Manual) 9.0 H Nucleated RBC % Seg Neutrophils # Seg Neutrophils # Man 8.5 H Lymphocytes # (Manual) Monocytes # (Manual) 1.1 H PT INR ABG pH ABG pO2 ABG Base Excess VBG pH Chloride Carbon Dioxide BUN Creatinine Glucose Calcium Magnesium AST ALT Alkaline Phosphatase Lactate Dehydrogenase C-Reactive Protein Total Protein Albumin Ur Specific [place] Urine WBC (Auto) Crossmatch Chest x-ray: report reviewed, image reviewed
--- NOTE | 2016-12-05 13:18 | Progress Note ---
Assessment and Plan A: POD#8 s/p Primary c/sec for NRFHT, UFE, Dilatiaton and currettage Cough after respiratory failure on ventilator and suspected pneumonia on antibiotics; now improving P: Discharge today with follow up in [address] Iglesias and Pulmonology Subjective - Subjective Date of service: 12/05/16 Principal diagnosis: s/p c/sec, severe pree , hypotension , hypovolemic Interval history: Pt feels well today. She has been cleared for discharge by pulmonary. Patient reports: appetite normal, voiding normally, pain well controlled, flatus , ambulating normally, no dizzy ambulation, no bowel movement [place]: doing well Objective - Vital Signs Latest vital signs: Vital Signs Temp Pulse Resp BP BP 12/05/16 12:10 98.3 F 105 H 20 143/95 12/05/16 09:35 151/85 12/05/16 09:05 98.3 F 104 H 20 151/85 12/05/16 04:35 98.1 F 96 H 135/96 12/05/16 00:35 98.9 F 101 H 20 142/89 12/04/16 22:16 94 H 156/91 12/04/16 20:10 98.3 F 90 20 145/95 12/04/16 16:25 99.0 F 83 20 148/96 Intake and Output 12/04/16 12/05/16 12/05/16 22:59 06:59 14:59 Intake Total 460 340 240 Output Total 1850 Balance -1390 340 240 Intake: IV 100 100 ZOSYN/NS 4.5GM/100ML 4.5 100 100 gm In 100 ml @ 200 mls/hr IV Q8H [facility] Rx#:[id number] Oral 360 240 240 Output: Urine 1850 Void 1150 Other: Total, Intake Amount 120 120 120 Total, Output Amount 700 Voiding Method Toilet # Voids Void 1 1 1 - Exam Breasts: Present: deferred Cardiovascular: Present: Regular rate Lungs: Present: Clear to auscultation Abdomen: Present: soft, distention (mild ), normal bowel sounds Uterus: Present: fundal height below umbilicus Extremities: Present: normal Incision: Present: intact - Labs Labs: Abnormal lab results 12/02/16 12/04/16 Range/Units 05:50 16:34 WBC 11.7 H (4.5-11.0) K/mm3 RBC 3.38 L (3.65-5.03) M/mm3 Hgb 9.5 L (10.1-14.3) gm/dl Hct 28.1 L (30.3-42.9) % RDW 19.8 H (13.2-15.2) % Seg Neuts % (Manual) 73.0 H (40.0-70.0) % Lymphocytes % (Manual) 13.0 L (13.4-35.0) % Monocytes % (Manual) 9.0 H (0.0-7.3) % Seg Neutrophils # Man 8.5 H (1.8-7.7) K/mm3 Monocytes # (Manual) 1.1 H (0.0-0.8) K/mm3 Miscellaneous Test Flexitest 1 H
--- NOTE | 2016-12-05 13:21 | Discharge Summary ---
Providers - Providers Date of Admission: 11/27/16 10:04 Date of discharge: 12/05/16 Attending physician: SUZETTE IGLESIAS MD 11/28/16 00:27 Consult to Physician [CONS] Urgent Consulting Provider: SANIA GERONIMO Reason For Exam: with severe preeclampsia b/l pleural eff Place consult to:: Hospitalist Notified:: DR GERONIMO Phone number called:: [phone] Was contact made?: Yes If yes, spoke with:: DR GERONIMO Time called:: 07:23 11/30/16 13:14 Consult to Physician [CONS] Urgent Consulting Provider: JUANJO MILLER Reason For Exam: critical care management Place consult to:: Juanjo Miller Notified:: yes Was contact made?: Yes Time called:: 13:15 11/30/16 16:32 Consult to Dietitian/Nutrition [CONS] Routine Physician Instructions: Reason For Exam: Reason for Consult: Poor oral intake Primary care physician: SUZETTE IGLESIAS MD Hospitalization Reason for admission: other (Severe Preeclampsia ) Delivery: Procedure: section, primary low transverse Procedure details: Please see operative note. Incision: intact (with steristrips) Other procedures: other (Uterine Artery embolization, suction dilation and curettage ) complications: uterine atony Discharge diagnosis: IUP at term delivered baby: female Hospital course: Pt was admitted with severe preeclampsia and given magnesium sulfate for seizure prophylaxis. She underwent induction of labor but ultimately had a primary section which she tolerated well. Her postoperative course was then complicated by uterine atony and hypotension necessitating transfer to the ICU for close observation. She subsequently ultimately was transfused 6 units of PRBCs and 1 unit of FFP and underwent a uterine artery embolization by Interventional Radiology and a suction dilation and curettage by Dr Suzette Iglesias to control her bleeding. The patient also developed pneumonia and was intubated for a short time after her dilation and curettage. She was evaluated by pulmonology and infectious disease during her stay and met discharge criteria on POD#8. She will be sent home on labetalol and PO antibiotics with a follow up visit with Dr Iglesias in 1 week. Condition at discharge: Stable Disposition: DC- TO HOME OR SELFCARE - Discharge Diagnoses (1) S/P section Status: Acute (2) Acute blood loss anemia Status: Acute (3) Acute respiratory failure Status: Acute Qualifiers: Respiratory failure complication: unspecified whether with hypoxia or hypercapnia Qualified Code(s): J96.00 - Acute respiratory failure, unspecified whether with hypoxia or hypercapnia (4) Delivery by emergency Status: Acute (5) Hematoma of uterus Status: Acute Qualifiers: Encounter type: initial encounter Qualified Code(s): S37.62XA - Contusion of uterus, initial encounter (6) Hypotension Status: Acute Qualifiers: Hypotension type: maternal hypotension of Trimester: third trimester Qualified Code(s): O26.53 - Maternal hypotension syndrome, third trimester (7) Hypovolemia due to hemorrhage Status: Acute (8) Preeclampsia Status: Acute Qualifiers: Trimester: third trimester Qualified Code(s): O14.93 - Unspecified pre- eclampsia, third trimester Plan - Discharge Medications Prescriptions: Cefuroxime Axetil [Ceftin] 500 mg PO Q12H #20 ml Clindamycin [Clindamycin CAP] 300 mg PO Q8H #30 cap Docusate Sodium [Colace] 100 mg PO BID PRN #60 capsule PRN Reason: Constipation Ferrous Sulfate 325 mg PO DAILY #60 tablet.dr Ibuprofen [Motrin] 600 mg PO Q8H PRN #30 tablet PRN Reason: Pain Ibuprofen [Motrin] 800 mg PO Q8HR PRN #30 tablet PRN Reason: Pain Labetalol [Normodyne TAB] 200 mg PO BID #60 tablet Labetalol [Normodyne TAB] 400 mg PO BID #112 tablet oxyCODONE /ACETAMINOPHEN [Percocet 5/325] 1 tab PO Q6HR PRN #30 tablet PRN Reason: Pain oxyCODONE /ACETAMINOPHEN [Percocet 5/325] 1 tab PO Q6HR PRN #40 tablet PRN Reason: Pain - Provider Discharge Summary Activity: routine, no sex for 6 weeks, no heavy lifting 4 weeks, no strenuous exercise Diet: routine Instructions: routine Additional instructions: [] Smoking cessation referral if applicable(refer to patient education folder for contact #) [] Refer to [facility] Booklet Call your doctor immediately for: * Fever > 100.5 * Heavy vaginal bleeding ( >1 pad per hour) * Severe persistent headache * Shortness of breath * Reddened, hot, painful area to leg or breast * Drainage or odor from incision. * Keep incision clean and dry at all times and follow doctor's instructions regarding bathing/showering Continue incentive spirometry at home. - Follow up plan Follow up: SUZETTE IGLESIAS MD [Primary Care Provider] - 12/10/16 (please call to schedule an appt )
[2016-12-05] MEDS ORDERED: CITRATE OF MAGNESIA PO ONE (14:00)
[2016-12-05] MEDS: CITRATE OF MAGNESIA PO PRN (14:21)
[2016-12-05 19:39] VITALS: BP 149/95
== END 2016-12-05 20:00 | disposition home or self-care (01) | DRG 765 ==
LOC: TRG 10:03 → LD 10:04 → TRG 10:05 → OB 11-28 11:12 → CC1 11-28 19:32 → OB 12-02 14:22
PROVIDERS: ADMIT Obstetrics & Gynecology; ATTEND Obstetrics & Gynecology
PROC: 10D00Z1 Extraction of Products of Conception, Low, Open Approach (ICD-10-PCS; principal; 2016-11-28)
PROC: 30233L1 Transfusion of Nonautologous Fresh Plasma into Peripheral Vein, Percutaneous Approach (ICD-10-PCS; 2016-11-29)
PROC: 30233N1 Transfusion of Nonautologous Red Blood Cells into Peripheral Vein, Percutaneous Approach (ICD-10-PCS; 2016-11-29)
PROC: 30233K1 Transfusion of Nonautologous Frozen Plasma into Peripheral Vein, Percutaneous Approach (ICD-10-PCS; 2016-11-29)
PROC: 04LF3ZU Occlusion of Left Uterine Artery, Percutaneous Approach (ICD-10-PCS; 2016-11-30)
PROC: 04LE3ZT Occlusion of Right Uterine Artery, Percutaneous Approach (ICD-10-PCS; 2016-11-30)
PROC: 10D17ZZ Extraction of Products of Conception, Retained, Via Natural or Artificial Opening (ICD-10-PCS; 2016-11-30)
DX: O14.14 Severe pre-eclampsia complicating childbirth (principal); J96.00 Acute respiratory failure, unspecified whether with hypoxia or hypercapnia; S37.62XA Contusion of uterus, initial encounter; J90 Pleural effusion, not elsewhere classified; D62 Acute posthemorrhagic anemia; Z3A.37 37 weeks gestation of pregnancy; Z37.0 Single live birth; O72.1 Other immediate postpartum hemorrhage; O90.89 Other complications of the puerperium, not elsewhere classified; O99.53 Diseases of the respiratory system complicating the puerperium; O85 Puerperal sepsis; O88.23 Thromboembolism in the puerperium; O86.20 Urinary tract infection following delivery, unspecified; O90.81 Anemia of the puerperium
CPT/HCPCS: 36415; 37242; 71010; 71020; 74178; 76705; 76805; 76819; 80048; 80053; 80307; 81001; 82565; 82803; 82805; 83615; 83735; 83880; 84450; 84460; 84550; 85007; 85014; 85018; 85025; 85027; 85610; 85730; 86140; 86592; 86850; 86900; 86901; 86920; 87040; 87070; 87075; 87076; 87086; 87116; 87186; 87205; 88307; 93306; 94002; 94003; 94760; 99211; A4649; C1751; C1769; C1887; C9250; G0463; J0290; J0330; J0360; J0595; J0690; J1170; J1200; J1580; J1644; J1885; J1940; J2250; J2270; J2370; J2405; J2543; J2590; J2704; J2765; J3010; J3370; J3475; J7030; J7040; J7042; J7120; P9016; P9017; Q9967